=== PATIENT | male | born 1955 | race Caucasian/White ===

== ENCOUNTER → 2024-01-27 17:33 | Outpatient (REF) | payer MEDICARE, SELFPAY | LOC: MRI 17:33 | PROVIDERS: ATTENDING PHYSICIAN Family Medicine | DX: M48.00 Spinal stenosis, site unspecified (principal); R29.898 Other symptoms and signs involving the musculoskeletal system | CPT/HCPCS: 72110; 72148 ==

== ENCOUNTER 2024-02-21 18:01 | Emergency (ER) | payer MEDICARE, SELFPAY ==
[2024-02-21 18:06] VITALS: BP 93/52
[2024-02-21 18:48] VITALS: BP 92/59
[2024-02-21 19:00] VITALS: BP 95/60
[2024-02-21 19:12] VITALS: BMI 33.0
[2024-02-21 19:45] LABS: % Basophils 0.3 % (0-2); % Eosinophils 2.4 % (0-6); % Immature Granulocytes 0.8 % (0-0.5); % Monocytes 8.9 % (1.7-9.3); % Neutrophils 71.6 % (42.2-75.2); Absolute Eosinophils 0.3 10^3/uL (0-0.7); Absolute Immature Granulocytes 0.1 10^3/uL (0-0.05); Absolute Lymphocytes 1.8 10^3/uL (1.2-3.4); Absolute Neutrophils 8.2 10^3/uL (1.4-6.5); Hematocrit 24.8 % (39.0-52.0); Hemoglobin 7.9 g/dL (13.0-18.0); Mean Corp Hgb Conc. 31.9 g/dL (33.0-37.0); Mean Corpuscular Hgb 25.5 pg (27.0-31.0); Mean Platelet Volume 9.4 fL (7.4-10.4); Nucleated Red Blood Cells % 0 % (-); Platelet Count 407 10^3/uL (130-400); Red Cell Dist. Width 17.3 % (11.5-14.5); White Blood Cell Count 11.5 10^3/uL (4.8-10.8)
[2024-02-21 19:58] LABS: COVID-19 Antigen Negative (Negative)
[2024-02-21 20:04] LABS: ALT (SGPT) 25 U/L (0-50); AST (SGOT) 29 U/L (17-59); Albumin 3.3 g/dl (3.5-5.0); Alkaline Phosphatase 89 U/L (38-126); Blood Urea Nitrogen 24 mg/dl (9-20); Calcium 9.5 mg/dl (8.4-10.2); Carbon Dioxide 20 mmol/L (22-30); Chloride 105 mmol/L (98-107); Estimated Creatinine Clearance 76 ml/min; Glucose 110 mg/dl (70-99); Magnesium 2.1 mg/dl (1.6-2.3); Phosphorus 3.2 mg/dl (2.5-4.5); Potassium 4.5 mmol/L (3.5-5.1); Sodium 134 mmol/L (135-145); Total Bilirubin 0.4 mg/dl (0.2-1.3); Total Protein 6.1 g/dl (6.3-8.2); eGFR > 60.00
[2024-02-21 20:08] LABS: Troponin I < 0.012 ng/ml
[2024-02-21 20:25] LABS: NT-proBNP 1100 pg/ml
--- NOTE | 2024-02-21 20:40 | ED.GENMED ---
History of Present Illness
General
Chief Complaint: Weakness
Source: patient and spouse
Exam Limitations: none
Time Seen by Provider: 02/21/24 18:56
Nursing documentation reviewed up to this point in time: agreed with
History of Present Illness
History of Present Illness:
68-year-old male with a past medical history of hypertension, atrial fibrillation on Eliquis, DANIEL, asthma who presents to the emergency department with his for evaluation of generalized weakness. Patient reports symptoms have been ongoing for
roughly a week but have become much more severe over the past 24 hours. Initially was seen by his primary care physician and had basic blood work done which showed new anemia. He was scheduled for an iron infusion which he had about 5 days ago
with another upcoming. He says he has been scheduled for an upper and lower endoscopy as well to rule out any occult GI bleeding. He says that his Eliquis was discontinued. He has not had any dark or bloody stools he says. Over the past 24 hours
he feels his weakness has been getting worse�yesterday his says that he was too weak to walk up a step and fell down to his knee although did not sustain any serious injuries. No head trauma. Today could barely get out of bed and ultimately
brought to the emergency room to be assessed. He denies any chest pain. He denies any palpitations. He says he does have some mild shortness of breath. He says he has had some mild right sided abdominal pain today. Denies any nausea, vomiting,
diarrhea. Denies any urinary symptoms. Denies any other complaints.
Past History
Past History
ED Past Medical History: Asthma and HTN
ED Past Surgical History: Tonsilectomy
Social History
Tobacco: Non-smoker
Alcohol: Occasional
Personal:
Living: with family
Employment: Employed
Family History
Family History: CAD (Dad at age 59 of an AL)
Review of Systems
Review of Systems
All Other Systems: ROS reviewed and negative except as documented in HPI and ROS
Constitutional: Reports fatigue; Denies fever or chills
EENT: Denies sore throat or runny nose
Respiratory: Reports trouble breathing; Denies cough
Cardiac: Denies chest pain, palpitations or syncope
ABD/GI: Reports abdominal pain; Denies nausea, vomiting, diarrhea, bloody stools or black stools
: Denies dysuria, frequency or flank pain
Musculoskeletal: Denies neck pain or back pain
Neurological: Denies dizzy or headache
Phy Exam
Physical Exam
Physical Exam:
General: Awake, alert, oriented x3; no acute distress
Head: Normocephalic, atraumatic
Eyes: Conjunctiva normal, pupils equal round and reactive to light bilaterally
Throat: Airway intact, handling secretions
Neck: Trachea midline, supple without meningismus
Lungs: Clear to auscultation bilaterally, no wheezing, rales, rhonchi
Heart: Regular rate and rhythm, no murmurs, gallops, or rubs
Abd: Soft, non distended, tender to palpation right lateral abdomen at the level of the umbilicus
Neuro: Cranial nerves grossly intact, speech fluid, no focal motor or sensory deficit
Skin: no rash
Extremities: Trace edema around the ankles bilaterally, equal pulses in all extremities
Scores
Heart Failure Risk
Heart Failure Risk Score: Not Applicable
Heart Score for Chest Pain Patients
STEMI patient?: Not applicable
Withdrawal Assessment of Alcohol
Withdrawal Assessment Completed?: Not applicable
Course
Orders/Labs/Results
Orders:
Orders
02/21/24 18:57
Urinalysis Reflex To Culture Urgent
02/21/24 19:07
Electrocardiogram (*1) Urgent
Reason for Study: Fatigue / Weakness
EKG- Treatment ONCE
02/21/24 19:08
CT Abd/pelvis W Iv Cont Urgent
Comment:
Reason For Exam: right sided abd pain, fatigue
CR Chest - 2 Views Urgent
Comment:
Reason For Exam: weakness, right sided abd/flank pain
02/21/24 19:30
COVID-19 Antigen Urgent
Source: Nasal Swab
Complete Blood Count/With Diff Urgent
Comprehensive Metabolic Panel Urgent
Magnesium Urgent
NT-proBNP Urgent
Phos [Phosphorus] Urgent
Troponin I Urgent
Abnormal Lab Results
02/21/24
19:30
WBC 11.5 H 10^3/uL
(4.8-10.8)
RBC 3.10 L 10^6/uL
(4.70-6.10)
Hgb 7.9 L g/dL
(13.0-18.0)
Hct 24.8 L %
(39.0-52.0)
MCH 25.5 L pg
(27.0-31.0)
MCHC 31.9 L g/dL
(33.0-37.0)
RDW 17.3 H %
(11.5-14.5)
Plt Count 407 H 10^3/uL
(130-400)
Abs Immat Gran (auto) 0.1 H 10^3/uL
(0-0.05)
Absolute Neuts (auto) 8.2 H 10^3/uL
(1.4-6.5)
Absolute Monos (auto) 1.0 H 10^3/uL
(0.1-0.6)
Immature Gran % 0.8 H %
(0-0.5)
Lymphocytes % 16.0 L %
(20.5-51.1)
Sodium 134 L mmol/L
(135-145)
Carbon Dioxide 20 L mmol/L
(22-30)
BUN 24 H mg/dl
(9-20)
Glucose 110 H mg/dl
(70-99)
Total Protein 6.1 L g/dl
(6.3-8.2)
Albumin 3.3 L g/dl
(3.5-5.0)
02/21/24 19:30
02/21/24 19:30
Vital Signs
Initial and Last Documented VS:
Initial Vital Signs
Temp Pulse Resp BP Pulse Ox
36.8 C 72 18 93/52 95
02/21/24 18:06 02/21/24 18:06 02/21/24 18:06 02/21/24 18:06 02/21/24 18:06
Last Documented Vital Signs
Temp Pulse Resp BP Pulse Ox
36.8 C 69 22 95/60 96
02/21/24 18:06 02/21/24 20:15 02/21/24 20:15 02/21/24 19:00 02/21/24 20:15
MDM/Problems Addressed
Differential Diagnosis Includes:
Differential diagnosis for generalized weakness is wide includes but not limited to: Symptomatic anemia, dehydration, electrolyte derangement, CHF, infection such as UTI or pneumonia, polypharmacy, viral syndrome, deconditioning, malignancy
MDM/Problems Addressed:
68-year-old male presents to the emergency room for evaluation of generalized weakness as described above�worsening over the past week, found to have anemia as an outpatient and has had iron infusion and is scheduled for upper and lower endoscopy.
Only other complaints are some mild shortness of breath as well as some right sided abdominal pain. Had been on Eliquis which was discontinued. Soft blood pressure here 90s over 50s which is apparently chronic issue for him. Physical exam as
above. Plan to check labs including a CBC and a CMP; will check troponin and a BNP. Will check urinalysis. Swab for COVID. Will check chest x-ray. Will check EKG. Sent for CT abdomen pelvis. Monitor closely reassess after the above.
Chronic conditions affecting care:
Atrial fibrillation, hypertension
*Radiology
Radiology exam reviewed: preliminary read by ED provider and radiology read reviewed
*Pulse Oximetry
Patient hypoxic: no
*Critical Care Note
Total Time (30-74mins, 75-104mins- exclusive of procedures): Not Applicable
Data Reviewed
Review of Other/Old Records Reveals: Labs and Records
Source: patient, records and spouse
ED Attending Note
-
Portions of this chart may have been created with voice recognition software.� Occasional wrong word or��sound alike� substitutions may have occurred due to the inherent limitations of voice recognition software.
Discharge Plan
Departure
Prescriptions:
No Action
Entresto 1 TAB tablet
1 tab PO BID Qty: 30 0RF
metoprolol succinate 50 MG tablet extended release 24 hr
50 mg PO DAILY
budesonide-formoterol [Symbicort] 1 PUFF HFA aerosol inhaler
2 puff inhalation DAILY
furosemide 40 MG tablet
40 mg PO DAILY
potassium chloride [Klor-Con M20] 20 MEQ tablet,ER particles/crystals
10 meq PO DAILY
tamsulosin 0.4 mg Capsule
0.4 mg PO HS
finasteride 5 mg Tablet
5 mg
Referrals:
Derrick Atkins MD [Family Provider] -
Interventions
Interventions:
*General Assessment Last Done: 02/21/24 18:06
*ED COVID-19 Vaccine History Last Done: 02/21/24 18:06
ED- Cardiac Assessment Last Done: 02/21/24 19:13
ED- Neurological Assessment Last Done: 02/21/24 19:13
ED- Pulmonary Assessment Last Done: 02/21/24 19:13
Discharge Date and Time
Print Language: SWEDISH
[2024-02-21 21:13] VITALS: BP 103/63
[2024-02-21 22:00] VITALS: BP 104/68
== END 2024-02-21 22:27 | disposition home or self-care (01) ==
LOC: EMR 18:01
PROVIDERS: EMERGENCY PHYSICIAN Emergency Medicine; FAMILY PHYSICIAN Family Medicine
DX: R53.1 Weakness (principal); R06.02 Shortness of breath; R10.9 Unspecified abdominal pain; R53.83 Other fatigue; W19.XXXA Unspecified fall, initial encounter; D64.9 Anemia, unspecified; Z11.52 Encounter for screening for COVID-19; I48.91 Unspecified atrial fibrillation; J45.909 Unspecified asthma, uncomplicated; I10 Essential (primary) hypertension; G47.33 Obstructive sleep apnea (adult) (pediatric); Z79.01 Long term (current) use of anticoagulants; Z88.2 Allergy status to sulfonamides
CPT/HCPCS: 99285; 71046; 74177; 80053; 83735; 83880; 84100; 84484; 85025; 87811; 93005; Q9967

== ENCOUNTER 2024-02-23 12:42 | Outpatient (RCR) | payer MEDICARE, SELFPAY ==
[2024-02-16 13:12] VITALS: BP 84/50
[2024-02-16] MEDS: INJECTAFER 265 MG IV (13:26)
[2024-02-16 14:09] VITALS: BP 86/51
[2024-02-23 13:10] VITALS: BP 106/52
[2024-02-23] MEDS: INJECTAFER 265 MG IV (13:17)
[2024-02-23 14:07] VITALS: BP 106/52
[2024-02-23 14:09] VITALS: BP 96/52
== END 2024-02-24 08:50 | disposition home or self-care (01) ==
LOC: OID 12:42
PROVIDERS: ATTENDING PHYSICIAN Family Medicine
DX: D50.9 Iron deficiency anemia, unspecified (principal)
CPT/HCPCS: 96365; 96374; J1439

== ENCOUNTER 2024-03-04 08:58 | Outpatient (REF) | payer MEDICARE, SELFPAY ==
[2024-03-04] VITALS (9 sets, daily range): BP systolic 60–119; BP diastolic 53–76
[2024-03-04 09:26] LABS: % Basophils 0.3 % (0-2); % Eosinophils 1.3 % (0-6); % Immature Granulocytes 1.4 % (0-0.5); % Lymphocytes 9.6 % (20.5-51.1); % Monocytes 7.6 % (1.7-9.3); % Neutrophils 79.8 % (42.2-75.2); Absolute Eosinophils 0.2 10^3/uL (0-0.7); Absolute Immature Granulocytes 0.2 10^3/uL (0-0.05); Absolute Lymphocytes 1.2 10^3/uL (1.2-3.4); Hematocrit 27.9 % (39.0-52.0); Hemoglobin 8.7 g/dL (13.0-18.0); Mean Corp Hgb Conc. 31.2 g/dL (33.0-37.0); Mean Corpuscular Hgb 25.5 pg (27.0-31.0); Mean Corpuscular Volume 81.8 fL (80.0-94.0); Mean Platelet Volume 9.8 fL (7.4-10.4); Nucleated Red Blood Cells % 0 % (-); Platelet Count 432 10^3/uL (130-400); Red Blood Cell Count 3.41 10^6/uL (4.70-6.10); Red Cell Dist. Width 18.2 % (11.5-14.5); White Blood Cell Count 12.6 10^3/uL (4.8-10.8)
[2024-03-04 09:35] LABS: PT 16.2 Sec (11.4-14.6)
[2024-03-04 09:46] LABS: Blood Urea Nitrogen 22 mg/dl (9-20); Calcium 9.6 mg/dl (8.4-10.2); Carbon Dioxide 23 mmol/L (22-30); Chloride 103 mmol/L (98-107); Glucose 135 mg/dl (70-99); Potassium 4.6 mmol/L (3.5-5.1); Sodium 138 mmol/L (135-145); eGFR 54.07
== END 2024-03-04 14:08 | disposition home or self-care (01) ==
LOC: RADI 08:58
PROVIDERS: ATTENDING PHYSICIAN Family Medicine
DX: C64.1 Malignant neoplasm of right kidney, except renal pelvis (principal); D68.8 Other specified coagulation defects
CPT/HCPCS: 88305; 36415; 50200; 77012; 80048; 85025; 85610; 88333; 88341; 88342; 99152; 99153

== ENCOUNTER → 2024-03-09 13:22 | Outpatient (REF) | payer MEDICARE, SELFPAY | LOC: MRI 3T 13:22 | PROVIDERS: ATTENDING PHYSICIAN Internal Medicine Hematology & Oncology; FAMILY PHYSICIAN Family Medicine | DX: C64.1 Malignant neoplasm of right kidney, except renal pelvis (principal); D64.9 Anemia, unspecified | CPT/HCPCS: 70553; A9575 ==

== ENCOUNTER 2024-03-17 08:23 | Inpatient (IN) | payer MEDICARE, SELFPAY ==
[2024-03-16] VITALS (8 sets, daily range): BP systolic 104–136; BP diastolic 61–100; BMI 34.2; BMI 33.3
[2024-03-16 14:10] LABS: % Basophils 0.4 % (0-2); % Eosinophils 2.1 % (0-6); % Monocytes 10.6 % (1.7-9.3); % Neutrophils 69.9 % (42.2-75.2); Absolute Basophils 0.1 10^3/uL (0-0.2); Absolute Eosinophils 0.2 10^3/uL (0-0.7); Absolute Immature Granulocytes 0.1 10^3/uL (0-0.05); Absolute Lymphocytes 1.8 10^3/uL (1.2-3.4); Absolute Monocytes 1.2 10^3/uL (0.1-0.6); Absolute Neutrophils 7.8 10^3/uL (1.4-6.5); Hematocrit 30.9 % (39.0-52.0); Hemoglobin 9.7 g/dL (13.0-18.0); Mean Corp Hgb Conc. 31.4 g/dL (33.0-37.0); Mean Corpuscular Hgb 25.9 pg (27.0-31.0); Mean Corpuscular Volume 82.6 fL (80.0-94.0); Mean Platelet Volume 9.7 fL (7.4-10.4); Nucleated Red Blood Cells % 0 % (-); Platelet Count 378 10^3/uL (130-400); Red Blood Cell Count 3.74 10^6/uL (4.70-6.10); Red Cell Dist. Width 17.8 % (11.5-14.5); White Blood Cell Count 11.2 10^3/uL (4.8-10.8)
--- NOTE | 2024-03-16 14:36 | ED.GENMED ---
History of Present Illness
<Marvin Meza Kimmie, DO - Last Filed: 03/16/24 16:43>
General
Chief Complaint: Back Pain
Time Seen by Provider: 03/16/24 14:36
History of Present Illness
History of Present Illness:
HPI: Mr. Harley Santoro is a 68 yo male brought by EMS for back pain. Pain is a 9/10 shooting pain that started 0900, but is now 0/10. Worse with movement. Was unable to stand earlier. Pt has L knee instability for 3-4 weeks and fell 3 weeks ago prior
to being seen in this ED on 02/20. Pt has been wearing knee brace and using a walker for stability. Pt diagnosed with kidney mass, confirmed by renal bx 03/04. PET scan yesterday, will see oncology tomorrow to discuss results. Pt aware cancer is
metastatic. +nonproductive cough, -headache, -fever/chills, -chest pain, -palpitations, -n/v/d. Urine today is a dark brown color, pt reports increased urgency. Denies dysuria, increased frequency.
EXAM:
GENERAL: Well appearing in no distress
HEENT: Moist oral mucosa,
CARDIOVASCULAR: No murmurs, normal heart rate, regular rhythm, No chest wall tenderness
PULMONARY: No respiratory distress, breath sounds are clear and equal
ABDOMEN: Focal tenderness over L paraspinal region at T12. Soft with no peritoneal signs, no tenderness
NEUROLOGIC: Excellent strength all extremities, no coordination deficits
PSYCHIATRIC: Appropriate mental status, normal insight and judgement
EXTREMITIES: Nontender, no edema. Wearing left knee brace
SKIN: No rash, no lesions
TIME OF INITIAL ENCOUNTER: 2:45 PM
NUMBER AND COMPLEXITY OF PROBLEMS ADDRESSED AT THE ENCOUNTER
� Chronic conditions affecting care: R kidney cancer, HTN, atrial fibrillation, asthma
� Acute Exacerbation and/or Progression of Chronic Illness: R kidney cancer
� Differential Diagnosis includes: Malignancy with mets to the bone
AMOUNT AND/OR COMPLEXITY OF DATA TO BE REVIEWED AND ANALYZED
� I performed an independent evaluation of and my interpretation is:
EKG:
CT:
X-rays:
Laboratory Studies: White count 11.2, hemoglobin 9.7, urinalysis shows 4+ blood, trace leukocyte esterase
Other:
� Review of other/old records: I reviewed the PET/CT from 03/15/2024 that showed the known malignancy at the right kidney and there was also uptake bilateral lung nodules, subcarinal mediastinum, adrenals, activity also noted the
upper cervical spine on the left, left scapular region, right anterior chest wall, right ninth rib, left seventh rib, proximal left femur
� Clinical information was obtained by an independent historian: I spoke to at bedside
� Prescriptions/Medications Considered but not given:
� Further testing considered but not performed:
RISK OF COMPLICATIONS AND/OR MORBIDITY OR MORTALITY OF PATIENT MANAGEMENT
� Social determinants of health affecting care: Lives at home with , was planning on going on a cruise with his as tomorrow was the 47th anniversary
� Discussion with other providers: Hospitalist for admission Dr. Barrett
� Escalation of care including admission/observation vs risk of discharge considered: I reviewed yesterday's PET/CT which includes metastatic disease to the bone. I have started him on narcotic analgesia. Also shows blood.
<Catrachita Blue DO, Resident - Last Filed: 03/19/24 06:25>
General
Source: patient
Exam Limitations: none
Nursing documentation reviewed up to this point in time: agreed with
History of Present Illness
History of Present Illness:
HPI: Mr. Harley Santoro is a 68 yo male brought by EMS for back pain. Pain is a 9/10 shooting pain that started 0900, but is now 0/10. Worse with movement. Was unable to stand earlier. Pt has L knee instability for 3-4 weeks and fell 3 weeks ago prior
to being seen in this ED on 02/20. Pt has been wearing knee brace and using a walker for stability. Pt diagnosed with kidney mass, confirmed by renal bx 03/04. PET scan yesterday, will see oncology tomorrow to discuss results. Pt aware cancer is
metastatic. +nonproductive cough, -headache, -fever/chills, -chest pain, -palpitations, -n/v/d. Urine today is a dark brown color, pt reports increased urgency. Denies dysuria, increased frequency.
EXAM:
GENERAL: Well appearing in no distress
HEENT: Moist oral mucosa
CARDIOVASCULAR: No murmurs, normal heart rate, regular rhythm, No chest wall tenderness
PULMONARY: No respiratory distress, breath sounds are clear and equal
ABDOMEN: Focal tenderness over L paraspinal region at T12. Soft with no peritoneal signs, no tenderness
NEUROLOGIC: Excellent strength all extremities, no coordination deficits
PSYCHIATRIC: Appropriate mental status, normal insight and judgement
EXTREMITIES: Nontender, no edema. Wearing left knee brace
SKIN: No rash, no lesions
TIME OF INITIAL ENCOUNTER:
NUMBER AND COMPLEXITY OF PROBLEMS ADDRESSED AT THE ENCOUNTER
� Chronic conditions affecting care: R kidney cancer, HTN, atrial fibrillation, asthma
� Acute Exacerbation and/or Progression of Chronic Illness: R kidney cancer
� Differential Diagnosis includes:
AMOUNT AND/OR COMPLEXITY OF DATA TO BE REVIEWED AND ANALYZED
� I performed an independent evaluation of and my interpretation is:
EKG:
CT:
X-rays:
Laboratory Studies: White count 11.2, hemoglobin 9.7
Other:
� Review of other/old records: I reviewed the PET/CT from 03/15/2024 that showed the known malignancy at the right kidney and there was also uptake bilateral lung nodules, subcarinal mediastinum, adrenals, activity also noted the
upper cervical spine on the left, left scapular region, right anterior chest wall, right ninth rib, left seventh rib, proximal left femur
� Clinical information was obtained by an independent historian:
� Prescriptions/Medications Considered but not given:
� Further testing considered but not performed:
RISK OF COMPLICATIONS AND/OR MORBIDITY OR MORTALITY OF PATIENT MANAGEMENT
� Social determinants of health affecting care:
� Discussion with other providers:
� Escalation of care including admission/observation vs risk of discharge considered:
Past History
<Marvin Burks DO - Last Filed: 03/16/24 16:43>
Past History
ED Past Medical History: Asthma and HTN
ED Past Surgical History: Tonsilectomy
Social History
Tobacco: Non-smoker
Alcohol: Occasional
Personal:
Living: with family
Employment: Employed
Family History
Family History: CAD (Dad at age 59 of an ID)
Phy Exam
<Catrachita Blue DO, Resident - Last Filed: 03/19/24 06:25>
Physical Exam
Physical Exam:
.
Course
<Marvin Burks DO - Last Filed: 03/16/24 16:43>
Orders/Labs/Results
Orders:
Orders
03/16/24 13:57
CBC/With Diff [Complete Blood Count/With Diff] Urgent
03/16/24 14:41
Comprehensive Metabolic Panel Urgent
03/16/24 Dinner
IDDSI 6 - Soft & Bite Sized
At Your Request: Limited Participation
Does patient need a safe tray?: No
03/16/24 15:04
Oxycodone/Acetaminophen [Percocet 5/325] 1 tablet PO NOW STA
03/16/24 15:12
Urinalysis Reflex To Culture Urgent
Date Specimen was Collected: 03/16/24
Time Specimen was Collected: 15:07
Urine Microscopic Reflex Cult Urgent
03/16/24 16:37
Tranexamic Acid 1,000 mg .ROUTE .STK-MED ONE
03/16/24 16:39
Tranexamic Acid 250 mg INH NOW STA
Tranexamic Acid 250 mg INH R ONCE ONE
03/16/24 16:42
HYDROmorphone [Dilaudid] 1 mg IV NOW STA
Ondansetron Injectable [Zofran] 4 mg IV NOW STA
03/16/24 17:41
Admit/Transfer Patient As Directed
Co-Sign Provider:
Level of Care: Observation services
Assign to:: Medical/Surgical
Physician / Group: osmani barrett
Diagnosis: intract thoracic back oain, l jaw pain new renal ca withnew METs
Code Status As Directed
Resuscitation Status: Full Code
HEMATOLOGY CONSULT Routine
Consulting Provider: Diego Zimmerman
Was physician already notified: Yes
Reason for consult: renal ca with mets ,new t7 back pain , l mandble cervical
03/16/24 17:45
PRN Pain Medication Management As Directed
May give lesser potent ordered pain med per pt: Yes
preference::
Protocol:: Medication orders for pain may be administered in a
manner that supports deferring to patient preference
when the pt is:
- Requesting an ordered lesser potent pain medication.
Least to most potent pain medications are defined
as: acetaminophen < NSAID < tramadol < opioids
(morphine, oxycodone, hydromorphone).
- Requesting a lesser dose of the same medication IF
ORDERED.
- Requesting a less intrusive route of administration
if both routes are prescribed by the provider (PO <
IV).
03/16/24 17:47
Facial Bones w Contrast CT [CT Facial Bones W/ Iv Contrast] Urgent
Comment:
Reason For Exam: bilat jaw pain, lesion left jaw concern mets
03/16/24 18:[address] Non Medication Order As Directed
Physician Order: apply tubi optician manager bilat legs
Above order entered?: Yes
03/16/24 19:16
Acetaminophen [Tylenol] 650 mg PO Q4HPRN PRN
Bisacodyl [Dulcolax] 10 mg RECTAL [id number] PRN
Docusate W/Senna [Senokot-S] 1 tablet PO BIDPRN PRN
HYDROmorphone [Dilaudid] 1 mg IV Q4HPRN PRN
Metoprolol Xl [Toprol Xl] 50 mg PO QPM
Ondansetron Injectable [Zofran] 4 mg IV Q6HPRN PRN
Oxycodone [Roxicodone] 5 mg PO Q4HPRN PRN
Polyethylene Glycol Powder [Miralax] 17 grams PO DAILYPRN PRN
03/16/24 19:16
VTE Contraindication Routine
VTE Mechanical Device Contraindication: Medical Contraindication
Pharmocologic Contraindication: Medical Contraindication
Comment: pt on eliquis
Activity As Directed
Activity Level: With Assistance
Intake/ Output As Directed
Frequency: Per unit guidelines
Vital Signs As Directed
Frequency: Per unit guidelines
Weight As Directed
Frequency: Daily
Ot Eval And Treat Routine
Pt Eval And Treat Routine
Activity Level: With Assistance
03/16/24 20:00
Apixaban [Eliquis] 5 mg PO BID
Budesonide/Formoterol 80/4.5 [Symbicort 80/4.5 Mcg Inhaler] 2 puff INH R BID
Sacubitril 24/Valsartan 26 [Entresto 24 mg/26 mg] 1 tab PO BID
03/16/24 22:00
Tamsulosin [Flomax] 0.4 mg PO HS
Cpap [RESP] Routine
Patient to use own unit?: Yes
Instructions: to bring tmr
03/17/24 06:00
MR Cervical Spine Without & W Routine
Reason For Exam: c3 lesion rneal cell ca
OK for patient to be off Cardiac Monitoring for MRI: Yes
Recent pill cam endoscopy?: No
Pacemaker/Defibrillator?: No
03/17/24 07:16
Miscellaneous Order As Directed
Miscellaneous order: apply tubi optician manager donna legs
03/17/24 08:00
Complete Blood Count/With Diff IN AM
Comprehensive Metabolic Panel IN AM
Potassium Chloride [KCl] 10 meq PO DAILY
Tiotropium [place] 2.5 Mcg [Spiriva Respimat 2.5 Mcg] 2 puff INH R DAILY
03/18/24 06:00
MR Thoracic Spine W/o & With Routine
Reason For Exam: t7 paraspinal pain , renal ca with mets new
OK for patient to be off Cardiac Monitoring for MRI: Yes
Recent pill cam endoscopy?: No
Pacemaker/Defibrillator?: No
03/18/24 08:00
Furosemide [Lasix] 40 mg PO Q48H
Abnormal Lab Results
03/16/24 03/16/24 03/16/24
13:57 14:41 15:12
WBC 11.2 H 10^3/uL
(4.8-10.8)
RBC 3.74 L 10^6/uL
(4.70-6.10)
Hgb 9.7 L g/dL
(13.0-18.0)
Hct 30.9 L %
(39.0-52.0)
MCH 25.9 L pg
(27.0-31.0)
MCHC 31.4 L g/dL
(33.0-37.0)
RDW 17.8 H %
(11.5-14.5)
Plt Count
Abs Immat Gran (auto) 0.1 H 10^3/uL
(0-0.05)
Absolute Neuts (auto) 7.8 H 10^3/uL
(1.4-6.5)
Absolute Monos (auto) 1.2 H 10^3/uL
(0.1-0.6)
Immature Gran % 1.0 H %
(0-0.5)
Lymphocytes % 16.0 L %
(20.5-51.1)
Monocytes % 10.6 H %
(1.7-9.3)
BUN 26 H mg/dl
(9-20)
Glucose 105 H mg/dl
(70-99)
Ur Occult Blood Reflex 4+ A
(Negative)
Leukocyte Esterase Rfl Trace A
(Negative)
Urine RBC 90-100 A /HPF
(0-2)
Urine Bacteria (Reflex) Few A
(Negative)
Urine Albumin (Reflex) 1+ A
(Neg - Trace)
03/17/24
08:00
WBC
RBC 3.62 L 10^6/uL
(4.70-6.10)
Hgb 9.4 L g/dL
(13.0-18.0)
Hct 30.9 L %
(39.0-52.0)
MCH 26.0 L pg
(27.0-31.0)
MCHC 30.4 L g/dL
(33.0-37.0)
RDW 17.6 H %
(11.5-14.5)
Plt Count 413 H 10^3/uL
(130-400)
Abs Immat Gran (auto) 0.1 H 10^3/uL
(0-0.05)
Absolute Neuts (auto) 7.6 H 10^3/uL
(1.4-6.5)
Absolute Monos (auto) 1.0 H 10^3/uL
(0.1-0.6)
Immature Gran % 1.0 H %
(0-0.5)
Lymphocytes % 14.2 L %
(20.5-51.1)
Monocytes % 9.8 H %
(1.7-9.3)
BUN
Glucose 116 H mg/dl
(70-99)
Ur Occult Blood Reflex
Leukocyte Esterase Rfl
Urine RBC
Urine Bacteria (Reflex)
Urine Albumin (Reflex)
03/17/24 08:00
03/17/24 08:00
Vital Signs
Initial and Last Documented VS:
Initial Vital Signs
Temp Pulse Resp BP Pulse Ox
97.8 F 75 18 136/100 96
03/16/24 13:45 03/16/24 13:45 03/16/24 13:45 03/16/24 13:45 03/16/24 13:45
Last Documented Vital Signs
Temp Pulse Resp BP Pulse Ox
97.8 F 118 16 113/70 92
03/18/24 23:30 03/18/24 23:30 03/18/24 23:30 03/18/24 23:30 03/18/24 23:30
<Catrachita Blue DO, Resident - Last Filed: 03/19/24 06:25>
Orders/Labs/Results
Orders:
Orders
03/16/24 13:57
CBC/With Diff [Complete Blood Count/With Diff] Urgent
03/16/24 14:41
Comprehensive Metabolic Panel Urgent
03/16/24 Dinner
IDDSI 6 - Soft & Bite Sized
At Your Request: Limited Participation
Does patient need a safe tray?: No
03/16/24 15:04
Oxycodone/Acetaminophen [Percocet 5/325] 1 tablet PO NOW STA
03/16/24 15:12
Urinalysis Reflex To Culture Urgent
Date Specimen was Collected: 03/16/24
Time Specimen was Collected: 15:07
Urine Microscopic Reflex Cult Urgent
03/16/24 16:37
Tranexamic Acid 1,000 mg .ROUTE .STK-MED ONE
03/16/24 16:39
Tranexamic Acid 250 mg INH NOW STA
Tranexamic Acid 250 mg INH R ONCE ONE
03/16/24 16:42
HYDROmorphone [Dilaudid] 1 mg IV NOW STA
Ondansetron Injectable [Zofran] 4 mg IV NOW STA
03/16/24 17:41
Admit/Transfer Patient As Directed
Co-Sign Provider:
Level of Care: Observation services
Assign to:: Medical/Surgical
Physician / Group: osmani barrett
Diagnosis: intract thoracic back oain, l jaw pain new renal ca withnew METs
Code Status As Directed
Resuscitation Status: Full Code
HEMATOLOGY CONSULT Routine
Consulting Provider: Diego Zimmerman
Was physician already notified: Yes
Reason for consult: renal ca with mets ,new t7 back pain , l mandble cervical
03/16/24 17:45
PRN Pain Medication Management As Directed
May give lesser potent ordered pain med per pt: Yes
preference::
Protocol:: Medication orders for pain may be administered in a
manner that supports deferring to patient preference
when the pt is:
- Requesting an ordered lesser potent pain medication.
Least to most potent pain medications are defined
as: acetaminophen < NSAID < tramadol < opioids
(morphine, oxycodone, hydromorphone).
- Requesting a lesser dose of the same medication IF
ORDERED.
- Requesting a less intrusive route of administration
if both routes are prescribed by the provider (PO <
IV).
03/16/24 17:47
Facial Bones w Contrast CT [CT Facial Bones W/ Iv Contrast] Urgent
Comment:
Reason For Exam: bilat jaw pain, lesion left jaw concern mets
03/16/24 18:[address] Non Medication Order As Directed
Physician Order: apply tubi optician manager bilat legs
Above order entered?: Yes
03/16/24 19:16
Acetaminophen [Tylenol] 650 mg PO Q4HPRN PRN
Bisacodyl [Dulcolax] 10 mg RECTAL [id number] PRN
Docusate W/Senna [Senokot-S] 1 tablet PO BIDPRN PRN
HYDROmorphone [Dilaudid] 1 mg IV Q4HPRN PRN
Metoprolol Xl [Toprol Xl] 50 mg PO QPM
Ondansetron Injectable [Zofran] 4 mg IV Q6HPRN PRN
Oxycodone [Roxicodone] 5 mg PO Q4HPRN PRN
Polyethylene Glycol Powder [Miralax] 17 grams PO DAILYPRN PRN
03/16/24 19:16
VTE Contraindication Routine
VTE Mechanical Device Contraindication: Medical Contraindication
Pharmocologic Contraindication: Medical Contraindication
Comment: pt on eliquis
Activity As Directed
Activity Level: With Assistance
Intake/ Output As Directed
Frequency: Per unit guidelines
Vital Signs As Directed
Frequency: Per unit guidelines
Weight As Directed
Frequency: Daily
Ot Eval And Treat Routine
Pt Eval And Treat Routine
Activity Level: With Assistance
03/16/24 20:00
Apixaban [Eliquis] 5 mg PO BID
Budesonide/Formoterol 80/4.5 [Symbicort 80/4.5 Mcg Inhaler] 2 puff INH R BID
Sacubitril 24/Valsartan 26 [Entresto 24 mg/26 mg] 1 tab PO BID
03/16/24 22:00
Tamsulosin [Flomax] 0.4 mg PO HS
Cpap [RESP] Routine
Patient to use own unit?: Yes
Instructions: to bring tmr
03/17/24 06:00
MR Cervical Spine Without & W Routine
Reason For Exam: c3 lesion rneal cell ca
OK for patient to be off Cardiac Monitoring for MRI: Yes
Recent pill cam endoscopy?: No
Pacemaker/Defibrillator?: No
03/17/24 07:16
Miscellaneous Order As Directed
Miscellaneous order: apply tubi optician manager donna legs
03/17/24 08:00
Complete Blood Count/With Diff IN AM
Comprehensive Metabolic Panel IN AM
Potassium Chloride [KCl] 10 meq PO DAILY
Tiotropium [place] 2.5 Mcg [Spiriva Respimat 2.5 Mcg] 2 puff INH R DAILY
03/18/24 06:00
MR Thoracic Spine W/o & With Routine
Reason For Exam: t7 paraspinal pain , renal ca with mets new
OK for patient to be off Cardiac Monitoring for MRI: Yes
Recent pill cam endoscopy?: No
Pacemaker/Defibrillator?: No
03/18/24 08:00
Furosemide [Lasix] 40 mg PO Q48H
Abnormal Lab Results
03/16/24 03/16/24 03/16/24
13:57 14:41 15:12
WBC 11.2 H 10^3/uL
(4.8-10.8)
RBC 3.74 L 10^6/uL
(4.70-6.10)
Hgb 9.7 L g/dL
(13.0-18.0)
Hct 30.9 L %
(39.0-52.0)
MCH 25.9 L pg
(27.0-31.0)
MCHC 31.4 L g/dL
(33.0-37.0)
RDW 17.8 H %
(11.5-14.5)
Plt Count
Abs Immat Gran (auto) 0.1 H 10^3/uL
(0-0.05)
Absolute Neuts (auto) 7.8 H 10^3/uL
(1.4-6.5)
Absolute Monos (auto) 1.2 H 10^3/uL
(0.1-0.6)
Immature Gran % 1.0 H %
(0-0.5)
Lymphocytes % 16.0 L %
(20.5-51.1)
Monocytes % 10.6 H %
(1.7-9.3)
BUN 26 H mg/dl
(9-20)
Glucose 105 H mg/dl
(70-99)
Ur Occult Blood Reflex 4+ A
(Negative)
Leukocyte Esterase Rfl Trace A
(Negative)
Urine RBC 90-100 A /HPF
(0-2)
Urine Bacteria (Reflex) Few A
(Negative)
Urine Albumin (Reflex) 1+ A
(Neg - Trace)
03/17/24
08:00
WBC
RBC 3.62 L 10^6/uL
(4.70-6.10)
Hgb 9.4 L g/dL
(13.0-18.0)
Hct 30.9 L %
(39.0-52.0)
MCH 26.0 L pg
(27.0-31.0)
MCHC 30.4 L g/dL
(33.0-37.0)
RDW 17.6 H %
(11.5-14.5)
Plt Count 413 H 10^3/uL
(130-400)
Abs Immat Gran (auto) 0.1 H 10^3/uL
(0-0.05)
Absolute Neuts (auto) 7.6 H 10^3/uL
(1.4-6.5)
Absolute Monos (auto) 1.0 H 10^3/uL
(0.1-0.6)
Immature Gran % 1.0 H %
(0-0.5)
Lymphocytes % 14.2 L %
(20.5-51.1)
Monocytes % 9.8 H %
(1.7-9.3)
BUN
Glucose 116 H mg/dl
(70-99)
Ur Occult Blood Reflex
Leukocyte Esterase Rfl
Urine RBC
Urine Bacteria (Reflex)
Urine Albumin (Reflex)
03/17/24 08:00
03/17/24 08:00
Vital Signs
Initial and Last Documented VS:
Initial Vital Signs
Temp Pulse Resp BP Pulse Ox
97.8 F 75 18 136/100 96
03/16/24 13:45 03/16/24 13:45 03/16/24 13:45 03/16/24 13:45 03/16/24 13:45
Last Documented Vital Signs
Temp Pulse Resp BP Pulse Ox
97.8 F 118 16 113/70 92
03/18/24 23:30 03/18/24 23:30 03/18/24 23:30 03/18/24 23:30 03/18/24 23:30
Procedures
<Marvin Burks, DO - Last Filed: 03/16/24 16:43>
Incision/Drainage/Joint Aspiration
Left:
Anethesia: 1% Lidocaine with Epi
Type of procedure: incise
Description of abscess: less than 3cm
Loculations broken up: No
How much fluid was obtained?: scant amount
Fluid description: bloody
Treatment: left open for drainage
Additional information:
I performed I&D of the soft tissue swelling at the angle of the mandible intraorally toward the buccal surface
<Catrachita Blue DO, Resident - Last Filed: 03/19/24 06:25>
*Critical Care Note
Total Time (30-74mins, 75-104mins- exclusive of procedures): Not Applicable
ED Attending Note
<Marvin Burks DO - Last Filed: 03/16/24 16:43>
-
Portions of this chart may have been created with voice recognition software.� Occasional wrong word or��sound alike� substitutions may have occurred due to the inherent limitations of voice recognition software.
Discharge Plan
Departure
Patient Disposition: Admit
Date of Disposition: 03/16/24
Time of Disposition: 16:24
Presentation/result/management discussed w/ accepting MD/DO: Hospitalist
Discharge Problem:
Metastatic cancer to bone
Interventions
Interventions:
*General Assessment Last Done: 03/16/24 13:45
*Neglect/Abuse Screening Last Done: 03/16/24 13:45
ED- Fall Risk Assessment Last Done: 03/16/24 14:11
*Nursing Disposition Last Done: 03/16/24 19:15
ED-Musculoskeletal Assessment Last Done: 03/16/24 14:11
Discharge Date and Time
Discharge Date/Time: 03/16/24 19:16
[2024-03-16] MEDS: PERCOCET 5/325 1 TABLET PO (15:11)
[2024-03-16 15:16] LABS: ALT (SGPT) 20 U/L (0-50); AST (SGOT) 25 U/L (17-59); Albumin 3.5 g/dl (3.5-5.0); Alkaline Phosphatase 104 U/L (38-126); Blood Urea Nitrogen 26 mg/dl (9-20); Calcium 9.7 mg/dl (8.4-10.2); Carbon Dioxide 22 mmol/L (22-30); Chloride 105 mmol/L (98-107); Estimated Creatinine Clearance 75 ml/min; Glucose 105 mg/dl (70-99); Potassium 4.6 mmol/L (3.5-5.1); Sodium 140 mmol/L (135-145); Total Bilirubin 0.4 mg/dl (0.2-1.3); Total Protein 6.7 g/dl (6.3-8.2); eGFR > 60.00
[2024-03-16 15:46] LABS: Urine Albumin 1+ (Neg - Trace); Urine Bilirubin Negative (Negative); Urine Character Slightly Cloudy (Clear); Urine Color Brown; Urine Glucose Negative (Negative); Urine Ketone Negative (Negative); Urine Leukocyte Trace (Negative); Urine Nitrite Negative (Negative); Urine Occult Blood 4+ (Negative); Urine Urobilinogen Negative (Neg - 1+)
[2024-03-16 16:11] LABS: Urine Red Blood Cell 90-100 /HPF (0-2)
[2024-03-16 16:12] LABS: Urine Bacteria Few (Negative)
[2024-03-16] MEDS: TRANEXAMIC ACID 250 MG INH (16:40)
--- NOTE | 2024-03-16 16:41 | HPS.HSE ---
Family Physician
-
Family Physician: Derrick Atkins
Chief Complaint
-
Left posterior back pain
History of Present Illness
77-year-old male from home by EMS complaining of left-sided posterior back pain 9 out of 10 and worse with movement along T7 area. He reports he was unable to stand earlier. He also reports urine dark in color with increased urgency. He also
reports a popping sensation on the right side of his TMJ joint yesterday. He reports pain bilateral TMJ area with chewing increased more on left side. He is able to fully open jaw. He denies headache, sore throat, fever, chills, cough, shortness
of breath, chest pain, palpitations, abdominal pain, nausea, vomiting, diarrhea he is currently wearing a left knee brace due to left knee instability after a fall 3 weeks ago and was seen in the ED on 02/21/2024. He has primary renal carcinoma with
renal biopsy on 03/04/2024. He had PET scan yesterday showing mets with bilateral pulmonary nodules, subcarinal mediastinum, right hilum, right adrenal gland and left adrenal gland several osseous foci in the left mandible, lesion left side of C3
vertebrae, soft tissue nodule along posterior abdominal wall soft tissue density in the left scapula.
He has past medical history of A-fib/atrial flutter, HTN, history of cardiomyopathy 2019 with EF of 25% required LifeVest x 1 month�resolved asthma, obstructive sleep apnea, right cell renal carcinoma with new recent mets, anemia/iron
deficiency
Medical History
Past Medical History
Past Medical History: Reports Other
Additional Past Medical History:
right cell renal carcinoma via biopsy 03/01/2024 with new recent mets via PET scan
A-fib/atrial flutter
HTN
history of cardiomyopathy 2019 with EF of 25% required LifeVest x 1 month�resolved
asthma
obstructive sleep apnea
Past Surgical History: Reports Other
Additional Past Surgical History:
Retina repair
Tonsillectomy
A flutter ablation 2019
Cataract extraction
Detached retina repair left eye
Social History
Tobacco: Non-smoker
Alcohol: Occasional (Once a month)
Drug: None
Personal:
Living: With Family ( Dominique)
Employment: Retired
Family History
Family History: Other (Mother lung cancer former smoker, father ID age 59, 1 brother living with history of Parkinson's and prostate cancer)
Allergies / Home Medications
Allergies reflects when Allergies were last updated in [employer].
Home Medications with original date entered in [employer]
Allergy/Medication List:
Allergies
Allergy/AdvReac Type Severity Reaction Status Date / Time
Sulfa (Sulfonamide Allergy Unknown Verified 03/16/24 13:49
Antibiotics)
Home Medications
furosemide 40 mg tablet 40 mg PO Q48H Fluid Retention/Swelling 01/21/20
metoprolol succinate 50 mg tablet,extended release 24 hr 50 mg PO QPM Heart Disease/BP 01/21/20
tamsulosin 0.4 mg capsule 0.4 mg PO HS Urinary Issue 02/16/24
acetaminophen 500 mg tablet (Tylenol Extra Strength) 1,000 mg PO Q6HPRN PRN mild pain 03/16/24
apixaban 5 mg tablet (Eliquis) 5 mg PO BID Blood Clot Prevention/Tx 03/16/24
fluticasone fur. 100 mcg-umeclid 62.5 mcg-vilant 25 mcg inhalat.powder (Trelegy Ellipta) 1 inh inhalation R DAILY Lung/Breathing Issues 03/16/24
potassium chloride 10 mEq tablet,extended release(part/cryst) 10 meq PO DAILY Electrolyte Repletion 03/16/24
sacubitril 24 mg-valsartan 26 mg tablet (Entresto) 1 tab PO BID heart failure 03/16/24
Review of Systems
-
History Source: Patient and Family ( joined at bedside)
A 12 point ROS was completed and negative except as noted: Yes
Constitutional: Reports Fatigue (Chronic); Denies Chills
EENT: Reports Other (Bilateral TMJ pain); Denies Sore Throat
Respiratory: Denies Cough or Trouble Breathing
Cardiac: Denies Chest Pain, Diaphoresis, Palpitations or Syncope
Abdomen/GI: Denies Abdominal Pain, Nausea, Vomiting, Diarrhea, Constipated, Bloody Stools or Black Stools
: Reports Dark Urine; Denies Dysuria, Frequency, Flank Pain, Incontinence, Difficulty Voiding, Urgency or Bleeding
Musculoskeletal: Reports Edema (Chronic +1 bilateral lower legs) and Other (Point tenderness posterior paraspinal muscle at T7 area nonradiating); Denies Joint Pain
Skin: Denies Itching or Rash
Neurological: Reports Weakness (Lifting self up in bed and turning secondary to back pain); Denies Dizzy or Headache
Endocrine: Reports No Symptoms
Hematologic/Lymphatic: Reports No Symptoms
Psych: Reports Calm
Physical Exam
Vital Signs
Vital Signs
Temp Pulse Resp BP Pulse Ox
97.8 F 71 20 108/70 94
03/16/24 13:45 03/16/24 15:15 03/16/24 15:15 03/16/24 15:00 03/16/24 15:00
Physical Exam
General: Conversant and Pain; No Fever or Chills
HEENT: NormoCephalic, Anicteric, PERRLA, [place] Conjunctivae, No Ptosis and Other (Bony protrusion along left buccal area near tooth # 18 missing, I&D attempted in ER but this was a bony protrusion, full rom jaw, + clicking near bilat tmj joints, nml
forward , side to side mvmt jaw)
Respiratory: Clear; No Wheezes or Rales
Cardiac: S1/S2, Regular Rhythm and Peripheral Edema (+1 bilateral); No Murmur, Rub or Gallop
Breast: Deferred by me
GI: Soft, Non Tender, Non Distended, Normal Bowel Sounds and No Hepatosplenomegaly
Rectal: Deferred by Provider
Genito-urinary: Deferred by me and No costovertebral tender
Musculoskeletal: No Clubbing, No Cyanosis, Edema, Left Lower Extremity (Trace to +1 pitting), Edema, Right Lower Extremity (Trace to +1 pitting) and Other (Point tenderness posterior paraspinal muscle at T7 area nonradiating); No Edema, Left Upper
Extremity or Edema, Right Upper Extremity
Skin: Warm and Dry; No Rash or Jaundice
Neuro: AO x 3, Nonfocal/grossly intact, Cranial Nerves Intact, No Sensory Deficits and Other (Limited sitting forward and turning to side secondary to back pain); No Slurred Speech, Facial Droop or Tremors
Psych: Calm
Laboratory Results
-
03/16/24 13:57
03/16/24 14:41
Laboratory Results
Total Bilirubin 0.4 mg/dl (0.2-1.3) 03/16/24 14:41
AST 25 U/L (17-59) 03/16/24 14:41
ALT 20 U/L (0-50) 03/16/24 14:41
Alkaline Phosphatase 104 U/L (38-126) 03/16/24 14:41
Impression/Plan
-
Impression/plan:
OBS MedSurg
#Uncontrolled posterior thoracic back pain with ambulatory dysfunction
T7 paraspinal tenderness
-PT/OT/spring encaser consult
-Tylenol, Percocet, Dilaudid as needed
-Bowel regimen
-check lumbar MRI with contrast
#Left side C3 lesion concern for mets
-Check MRI cervical spine with contrast
#Right renal mass suspected renal cell carcinoma with new recent mets right adrenal right hilum, left mandible, possible left C3 vertebral, left scapula on PET scan
-Consult Oncology
PET scan
1. Large focus of moderately intense FDG avid uptake in the right kidney corresponding with the patient's known primary malignancy.
2. FDG uptake involving numerous bilateral pulmonary nodules, subcarinal mediastinum, right hilum, right adrenal gland and left adrenal gland, as noted below, suspicious for FDG avid malignancy.
3. Several osseous foci of FDG uptake suspicious for malignancy, as detailed below. Of note, one lesion is seen most likely with epicenter involving a lucent lesion in the left mandible, difficult to determine anatomically
with this imaging modality. Suggest CT Facial Bone for more complete evaluation.
Lesion also suspected along the left side of the cervical spine possibly involving the left side of the C3 vertebral level for which MRI is suggested for more complete evaluation.
4. Small focus of minimal/mild FDG uptake involving an approximate 0.9 cm superficial midline soft tissue nodule along the posterior abdominal wall.
This may represent inflammatory activity are associated with soft tissue lesion such as a sebaceous cyst. A metastatic/malignant focus is also possible.
5. Prominent conglomerate moderately intense soft tissue FDG uptake seen within soft tissue density anterior to the left scapula which at least must be deemed suspicious for malignancy.
#Left-sided jaw pain with chewing likely secondary to TMJ versus left mandibular mass
-Check CT facial bone concern for pathological fracture
#Chronic anemia/iron deficiency
Recent iron transfusions
Hgb 9.7 appears better than baseline
-Follow CBC
# A-fib/atrial flutter
#History of a flutter ablation 01/21/2020
- cont Eliquis 5 mg twice daily, metoprolol succinate 50 mg every afternoon with hold parameters
# HTN-benign
BP 108/70
-Continue metoprolol succinate 50 mg every afternoon, Entresto twice daily, Lasix 40 mg every 48 hours with hold parameters
#Chronic peripheral edema
I/O, daily weights
-Apply Tubigrip's
-Continue Lasix 40 mg every 48 H with hold parameters for BP
#History of cardiomyopathy 2019 with EF of 25% required LifeVest x 1 month�resolved
2D echo 07/23/2023: EF 60-65%, mild LVH, no wall abnormalities, no valvular disease, dilated aortic root 4.6 cm
-Continue Entresto 1 tab twice daily, furosemide 40 mg every 48 H
#Asthma-no acute exacerbation
-Continue Trelegy
#Obstructive sleep apnea
- to bring full mask CPAP and tomorrow
#Obesity due to excess calorie consumption�BMI 34
Weight loss recommended
DVT prophylaxis
Subcu Lovenox
DNR
[2024-03-16] MEDS: ZOFRAN 4 MG IV (16:49)
[2024-03-16] MEDS: DILAUDID 1 MG IV ×2 (16:49→20:12)
--- NOTE | 2024-03-16 18:28 | W.PN.UPDATE ---
Update Note
Progress Note Update
This is an addendum to the H&P written by Kierra Jacobson on 03/16/2024. Patient seen and examined independently with [employer] LO[employer]ER.
68-year-old male past medical history of right renal cell carcinoma diagnosed on 03/01 with PET scan yesterday showing several osseous foci of FDG uptake including left mandible, left side of cervical spine, C3 vertebral body, left scapula,,
paroxysmal atrial fibrillation, cardiomyopathy, asthma, obstructive sleep apnea, presenting with left back pain in the paraspinal thoracic region. Check cervical/thoracic MRI to evaluate for spinal metastases. PT/OT.
Patient also with popping sensation in right mandible as well as pain in the left mandible. This is concerning for pathological fracture. Check CT facial bone. Could also be component of TMJ syndrome.
Patient was also having noted to have bony protrusion near tooth #18. This was attempted to be drained by ER but no drainage was returned. Likely this is due to metastases.
--- NOTE | 2024-03-16 19:30 | PTCARENOTE ---
Pt received at shift change. Pt jeramy, AAOX3, settled into bed, and only complains of 9/10 pain when readjusts himself. Pt given PRN medication for pain. Pt bed in lowest position and call vanegas within reach. Pt educated on importance of call vanegas
use. Pt expresses understanding. Will continue with current plan of care.
[2024-03-16] MEDS: TOPROL XL 50 MG PO (20:07)
[2024-03-16] MEDS: ENTRESTO 24 MG/26 MG 1 TAB PO (20:08)
[2024-03-16] MEDS: ELIQUIS 5 MG PO (20:09)
[2024-03-16] MEDS: FLOMAX 0.4 MG PO (20:12)
[2024-03-17] MEDS: DILAUDID 1 MG IV ×3 (04:31→20:29)
[2024-03-17 05:55] VITALS: BMI 33.3
[2024-03-17 07:00] VITALS: BP 90/59
[2024-03-17] MEDS: ELIQUIS 5 MG PO ×2 (08:10→20:39)
[2024-03-17] MEDS: ENTRESTO 24 MG/26 MG PO (08:10)
[2024-03-17] MEDS: KCL 10 MEQ PO (08:11)
[2024-03-17 08:31] LABS: % Basophils 0.5 % (0-2); % Eosinophils 2.2 % (0-6); % Lymphocytes 14.2 % (20.5-51.1); % Monocytes 9.8 % (1.7-9.3); % Neutrophils 72.3 % (42.2-75.2); Absolute Basophils 0.1 10^3/uL (0-0.2); Absolute Eosinophils 0.2 10^3/uL (0-0.7); Absolute Immature Granulocytes 0.1 10^3/uL (0-0.05); Absolute Lymphocytes 1.5 10^3/uL (1.2-3.4); Absolute Neutrophils 7.6 10^3/uL (1.4-6.5); Hematocrit 30.9 % (39.0-52.0); Hemoglobin 9.4 g/dL (13.0-18.0); Mean Corp Hgb Conc. 30.4 g/dL (33.0-37.0); Mean Corpuscular Volume 85.4 fL (80.0-94.0); Nucleated Red Blood Cells % 0 % (-); Platelet Count 413 10^3/uL (130-400); Red Blood Cell Count 3.62 10^6/uL (4.70-6.10); Red Cell Dist. Width 17.6 % (11.5-14.5); White Blood Cell Count 10.6 10^3/uL (4.8-10.8)
--- NOTE | 2024-03-17 09:00 | CON.ONC ---
Documented by User: Melany Rosenbaum DO, Resident 03/17/24 09:17
Impression
Impression
77-year-old male with recent diagnosis of metastatic renal cell carcinoma to multiple sites, with progressive mid low back pain.
Plan
Plan
Rule out concern of cord compression patient pending MRI cervical spine today.
For back pain control, patient requireslong-acting therapy. Start patient on Duragesic patch 25 mg every 3 days. Continue Dilaudid and oxycodone as needed.
Patient to follow-up outpatient with Dr. Kennedy for management of renal cell carcinoma.
Continue medical management per primary team recommendations.
Patient History
History of Present Illness
Patient is 77-year-old male with past medical history of A-fib, hypertension, cardiomyopathy, asthma, DANIEL with newly diagnosed metastatic right renal cell carcinoma on 02/27 presenting to [facility] with left-sided posterior back pain. He
reports the pain is mostly at the level of T9. He has a known Dr. Kennedy at our office, was supposed to meet with her today regarding recent diagnosis of renal cell carcinoma.
PET scan 03/16 showed bilateral pulmonary nodules, bilateral adrenal nodules, several osseous foci left mandible, left C3 vertebrae lesion, left scapular soft tissue density and soft tissue nodule along posterior abdominal wall. Today he reports
ongoing mid/lower back pain that is controlled while sitting, but exacerbated when turning or lying down.
Past-Medical/Surgical History
right cell renal carcinoma via biopsy 03/01/2024 with new recent mets via PET scan
A-fib/atrial flutter
HTN
history of cardiomyopathy 2019 with EF of 25% required LifeVest x 1 month�resolved
asthma
obstructive sleep apnea
Past Surgical History: Reports Other
Additional Past Surgical History:
Retina repair
Tonsillectomy
A flutter ablation 2019
Cataract extraction
Detached retina repair left eye
Patient Medication
�Medication �Instructions �Recorded �Confirmed �Last Taken �Type
furosemide 40 mg tablet 40 mg PO Q48H Fluid 01/21/20 03/16/24 03/16/24 History
Retention/Swelling
metoprolol succinate 50 mg 50 mg PO QPM Heart Disease/BP 01/21/20 03/16/24 03/15/24 History
tablet,extended release 24 hr
tamsulosin 0.4 mg capsule 0.4 mg PO HS Urinary Issue 02/16/24 03/16/24 03/15/24 History
acetaminophen 500 mg tablet 1,000 mg PO Q6HPRN PRN mild pain 03/16/24 03/16/24 03/16/24 History
(Tylenol Extra Strength)
apixaban 5 mg tablet (Eliquis) 5 mg PO BID Blood Clot 03/16/24 03/16/24 03/16/24 History
Prevention/Tx
fluticasone fur. 100 mcg-umeclid 1 inh inhalation R DAILY 03/16/24 03/16/24 03/16/24 History
62.5 mcg-vilant 25 mcg Lung/Breathing Issues
inhalat.powder (Trelegy Ellipta)
potassium chloride 10 mEq 10 meq PO DAILY Electrolyte 03/16/24 03/16/24 03/16/24 History
tablet,extended release(part/cryst) Repletion
sacubitril 24 mg-valsartan 26 mg 1 tab PO BID heart failure 03/16/24 03/16/24 03/16/24 History
tablet (Entresto)
Active Medications
Generic Name Dose Route Start Last Admin
Trade Name Freq PRN Reason Stop Dose Admin
Acetaminophen 650 mg 03/16/24 19:16
Acetaminophen 325 Mg Tablet PO 04/13/24 19:15
Q4HPRN PRN
mild pain/CORONADO/temp> 100.4F
Apixaban 5 mg 03/16/24 20:00 03/17/24 08:10
Apixaban (Eliquis) 5 Mg Tablet PO 04/13/24 19:59 5 mg
BID AIDAN Administration
Bisacodyl 10 mg 03/16/24 19:16
Bisacodyl 10 Mg Rectal Suppository RECTAL 04/13/24 19:15
[id number] PRN
constipation
Budesonide/Formoterol Fumarate 2 puff 03/16/24 20:00 03/17/24 08:47
Symbicort Inhaler 80/4.5 INH 04/13/24 19:59 Not Given
R BID AIDAN
Furosemide 40 mg 03/18/24 08:00
Furosemide 40 Mg Tablet PO 04/15/24 07:59
Q48H AIDAN
Hydromorphone HCl 1 mg 03/16/24 19:16 03/17/24 04:31
Hydromorphone 0.5 Mg/0.5 Ml Syringe IV 03/30/24 19:15 1 mg
Q4HPRN PRN Administration
severe pain
Metoprolol Succinate 50 mg 03/16/24 19:16 03/16/24 20:07
Metoprolol 50 Mg Extended Release Tablet PO 04/13/24 19:15 50 mg
QPM AIDAN Administration
Ondansetron HCl 4 mg 03/16/24 19:16
Ondansetron 4 Mg/2 Ml Vial IV 04/13/24 19:15
Q6HPRN PRN
NAUSEA/VOMITING
Oxycodone HCl 5 mg 03/16/24 19:16
Oxycodone 5 Mg Regular Release Tablet PO 03/30/24 19:15
Q4HPRN PRN
moderate pain
Polyethylene Glycol 17 grams 03/16/24 19:16
Polyethylene Glycol Powder 17 Grams Packet PO 04/13/24 19:15
DAILYPRN PRN
constipation
Potassium Chloride 10 meq 03/17/24 08:00 03/17/24 08:11
Potassium Chloride 10 Meq Extended Release Tablet PO 04/14/24 07:59 10 meq
DAILY AIDAN Administration
Sacubitril/Valsartan 1 tab 03/16/24 20:00 03/17/24 08:10
Sacubitril 24 Mg/Valsartan 26 Mg (Entresto) Tab PO 04/13/24 19:59 Not Given
BID AIDAN
Senna/Docusate Sodium 1 tablet 03/16/24 19:16
Docusate W/Senna (Kristan-Colace) Tablet PO 04/13/24 19:15
BIDPRN PRN
constipation
Tamsulosin HCl 0.4 mg 03/16/24 22:00 03/16/24 20:12
Tamsulosin 0.4 Mg Capsule PO 04/13/24 21:59 0.4 mg
HS AIDAN Administration
Tiotropium [place] 2 puff 03/17/24 08:00 03/17/24 08:46
Tiotropium (Spiriva Respimat) 2.5 Mcg Inhaler INH 04/14/24 07:59 Not Given
R DAILY AIDAN
Review of Systems
-
History Source: Patient
Constitutional: Reports Other (Back pain)
EENT: Reports Other (Difficulty chewing)
Respiratory: Reports No Symptoms
Cardiac: Reports No Symptoms
GI: Reports No Symptoms
: Reports Bleeding (1 episode of hematuria, currently resolved)
Musculoskeletal: Reports Other (Right sided mid to low back pain)
Skin: Reports No Symptoms
Psych: Reports No Symptoms
Physical Exam
-
General: Well Developed, Well Nourished, Comfortable and Conversant
Musculoskeletal: No Clubbing, No Cyanosis and Other (Mild edema in lower extremities, point tenderness on right T9 level)
Skin: Warm and Dry
Psych: Calm
Labs
Lab Results
WBC 10.6 10^3/uL (4.8-10.8) 03/17/24 08:00
RBC 3.62 10^6/uL (4.70-6.10) L 03/17/24 08:00
Hgb 9.4 g/dL (13.0-18.0) L 03/17/24 08:00
Hct 30.9 % (39.0-52.0) L 03/17/24 08:00
MCV 85.4 fL (80.0-94.0) 03/17/24 08:00
MCH 26.0 pg (27.0-31.0) L 03/17/24 08:00
MCHC 30.4 g/dL (33.0-37.0) L 03/17/24 08:00
RDW 17.6 % (11.5-14.5) H 03/17/24 08:00
Plt Count 413 10^3/uL (130-400) H 03/17/24 08:00
MPV 10.0 fL (7.4-10.4) 03/17/24 08:00
Abs Immat Gran (auto) 0.1 10^3/uL (0-0.05) H 03/17/24 08:00
Absolute Neuts (auto) 7.6 10^3/uL (1.4-6.5) H 03/17/24 08:00
Absolute Lymphs (auto) 1.5 10^3/uL (1.2-3.4) 03/17/24 08:00
Absolute Monos (auto) 1.0 10^3/uL (0.1-0.6) H 03/17/24 08:00
Absolute Eos (auto) 0.2 10^3/uL (0-0.7) 03/17/24 08:00
Absolute Basos (auto) 0.1 10^3/uL (0-0.2) 03/17/24 08:00
Immature Gran % 1.0 % (0-0.5) H 03/17/24 08:00
Neutrophils % 72.3 % (42.2-75.2) 03/17/24 08:00
Lymphocytes % 14.2 % (20.5-51.1) L 03/17/24 08:00
Monocytes % 9.8 % (1.7-9.3) H 03/17/24 08:00
Eosinophils % 2.2 % (0-6) 03/17/24 08:00
Basophils % 0.5 % (0-2) 03/17/24 08:00
Creatinine 1.2 mg/dL (0.7-1.3) 03/16/24 14:41
Vital Signs
Vital Signs
Temp Pulse Resp BP Pulse Ox
97.7 F 79 16 90/59 94
03/17/24 07:00 03/17/24 07:00 03/17/24 07:00 03/17/24 08:10 03/17/24 07:00

Documented by User: Diego Zimmerman MD 03/17/24 09:23
Plan
Plan
Rule out concern of cord compression patient pending MRI cervical spine today.
For back pain control, patient requires long-acting therapy. Start patient on Duragesic patch 25 mg every 3 days. Continue Dilaudid and oxycodone as needed.
Patient to follow-up outpatient with Dr. Kennedy for management of renal cell carcinoma.
Continue medical management per primary team recommendations.
ADDENDUM:
I saw and examined the patient.
The Resident's note was reviewed and I agree with the note.
Comment:
WDWN man in NAD sitting at bedside
RRR
Clear
IMP:
Newly diagnosed biopsy proven Met RCC poorly differentiated with acute onset severe left lateral back pain.� For MRI to R/O cord (somewhat doubt cord based on PET negative and location of pain) & starting Duragesic.� F/U with [facility] to review Tx
options for met RCC.
[2024-03-17 09:18] LABS: ALT (SGPT) 19 U/L (0-50); AST (SGOT) 20 U/L (17-59); Albumin 3.6 g/dl (3.5-5.0); Alkaline Phosphatase 103 U/L (38-126); Blood Urea Nitrogen 20 mg/dl (9-20); Calcium 10.1 mg/dl (8.4-10.2); Carbon Dioxide 22 mmol/L (22-30); Chloride 100 mmol/L (98-107); Estimated Creatinine Clearance 74 ml/min; Glucose 116 mg/dl (70-99); Potassium 4.9 mmol/L (3.5-5.1); Sodium 138 mmol/L (135-145); Total Bilirubin 0.5 mg/dl (0.2-1.3); Total Protein 6.8 g/dl (6.3-8.2); eGFR > 60.00
[2024-03-17] MEDS: DURAGESIC 25 MCG/HR PATCH 1 PATCH TRANSDERM (10:37)
--- NOTE | 2024-03-17 10:38 | W.PN.HOSP.TC ---
Today's Communication/Plan
-
await MRI studies
pain control, rehab evals
Assessment / Plan
Assessment / Plan
PET scan
1. Large focus of moderately intense FDG avid uptake in the right kidney corresponding with the patient's known primary malignancy.
2. FDG uptake involving numerous bilateral pulmonary nodules, subcarinal mediastinum, right hilum, right adrenal gland and left adrenal gland, as noted below, suspicious for FDG avid malignancy.
3. Several osseous foci of FDG uptake suspicious for malignancy, as detailed below. Of note, one lesion is seen most likely with epicenter involving a lucent lesion in the left mandible, difficult to determine anatomically
with this imaging modality. Suggest CT Facial Bone for more complete evaluation.
Lesion also suspected along the left side of the cervical spine possibly involving the left side of the C3 vertebral level for which MRI is suggested for more complete evaluation.
4. Small focus of minimal/mild FDG uptake involving an approximate 0.9 cm superficial midline soft tissue nodule along the posterior abdominal wall.
This may represent inflammatory activity are associated with soft tissue lesion such as a sebaceous cyst. A metastatic/malignant focus is also possible.
5. Prominent conglomerate moderately intense soft tissue FDG uptake seen within soft tissue density anterior to the left scapula which at least must be deemed suspicious for malignancy.
Assessment:
upper thoracic back pain, acute
ambulatory dysfunction
- PT/OT
- await MRI studies to r/o cord compression
- Continue Tylenol, Percocet, Dilaudid
- add Duragesic patch
- concurrent bowel regimen
Metastatic poorly differentiated RCC with osseous mets, lung field meds, L mandible meds
- PET and CT reviewed with family
- OP f.u Oncology for definitive treatment
Left jaw pain consistent with osseous mets seen on CT
- s/p ER aspiration attempt with bloody drainage
Chronic anemia
Iron deficiency anemia
- Hb 9.7
A. Fib
A. Flutter
- continue Eliquis/Metoprolol
Essential HTN
- continue BB/Entresto/Lasix
Chronic peripheral edema
- I/O, daily weights
- Apply Tubigrip's
- Continue Lasix 40 mg every 48 H with hold parameters for BP
History of cardiomyopathy 2019 with EF of 25% required LifeVest x 1 month�resolved
- updated Echo 07/2023: normal EF
Asthma-no acute exacerbation
- continue Trelegy
Obstructive sleep apnea
- to bring full mask CPAP and tomorrow
Obesity due to excess calorie consumption
- add ensure supplements
DVT ppx: Lovenox
Code: DNR
Anticipated Discharge: > 48 hours
Subjective/Interval History
-
Date of Service: March 17, 2024
reports back pain
Duragesic patch placed
Objective Data
-
Labs:
Laboratory Results
03/17/24
08:00
WBC 10.6
Hgb 9.4 L
Hct 30.9 L
Plt Count 413 H
Sodium 138
Potassium 4.9
Chloride 100
Carbon Dioxide 22
BUN 20
Creatinine 1.2
Glucose 116 H
Calcium 10.1
Total Bilirubin 0.5
AST 20
ALT 19
Alkaline Phosphatase 103
Vital Signs:
Vital Signs
Temp Pulse Resp BP Pulse Ox
97.7 F 79 16 90/59 94
03/17/24 07:00 03/17/24 07:00 03/17/24 07:00 03/17/24 08:10 03/17/24 08:25
I&O
03/16/24 03/17/24 03/18/24
06:59 06:59 06:59
Intake Total 480 / 480
Output Total 800 / 800
Balance -320 / -320
Physical Exam
-
General: No Apparent Distress and Obese
HEENT: Normocephalic and Atraumatic
Respiratory: Negative Wheezes
Cardiac: Regular Rhythm and S1/S2
GI: Soft
Genito-urinary: No Costovertebral Tender
Musculoskeletal: No Edema
Neuro: AO x 3
Hematologic / Lymphatic: No Lymphadenopathy
Psych: Calm
Data Reviewed
-
Total Time Spent with Patient (in minutes): 41
Labs: Labs Reviewed by me
--- NOTE | 2024-03-17 12:42 | CM ---
Patient seen bedside.
Dx met ca
IA completed.
Patient lives with spouse in a 1 story home with just a threshold.
Patient ambulates with a rollator.
Independent prior to admission.
Patient with a recent fall.
PT/OT evals (P).
Patient aware of CM availability for needs.
PCP: Dr Atkins
Pharmacy: [facility]
Plan: VN vs rehab await PT/OT.
[2024-03-17] MEDS: NON-FORMULARY ITEM 1 UNIT INH (13:14)
[2024-03-17 15:07] VITALS: BP 102/59
[2024-03-17] MEDS: TUMS EX (EXTRA STRENGTH) CHEWABLE TABLET 600 MG PO ×2 (16:13→20:38)
[2024-03-17] MEDS: TOPROL XL PO (17:12)
[2024-03-17] MEDS: ZOFRAN 4 MG IV (20:27)
[2024-03-17] MEDS: ENTRESTO 24 MG/26 MG 1 TAB PO (20:41)
[2024-03-17] MEDS: FLOMAX 0.4 MG PO (20:41)
[2024-03-17 23:30] VITALS: BP 132/83
[2024-03-18 05:54] VITALS: BMI 33.4
[2024-03-18 07:04] VITALS: BP 101/62
[2024-03-18] MEDS: NON-FORMULARY ITEM 1 UNIT INH (07:44)
[2024-03-18 07:57] LABS: Hemoglobin 8.9 g/dL (13.0-18.0); Mean Corp Hgb Conc. 30.7 g/dL (33.0-37.0); Mean Corpuscular Volume 84.8 fL (80.0-94.0); Platelet Count 360 10^3/uL (130-400); Red Blood Cell Count 3.42 10^6/uL (4.70-6.10); Red Cell Dist. Width 17.3 % (11.5-14.5); White Blood Cell Count 12.4 10^3/uL (4.8-10.8)
[2024-03-18] MEDS: ENTRESTO 24 MG/26 MG PO ×2 (08:08→19:56)
[2024-03-18] MEDS: LASIX PO (08:09)
[2024-03-18] MEDS: ELIQUIS 5 MG PO ×2 (08:09→19:51)
[2024-03-18] MEDS: KCL 10 MEQ PO (08:09)
[2024-03-18 08:12] LABS: Blood Urea Nitrogen 17 mg/dl (9-20); Calcium 10.1 mg/dl (8.4-10.2); Carbon Dioxide 24 mmol/L (22-30); Chloride 99 mmol/L (98-107); Estimated Creatinine Clearance 81 ml/min; Glucose 125 mg/dl (70-99); Potassium 4.5 mmol/L (3.5-5.1); Sodium 135 mmol/L (135-145); eGFR > 60.00
[2024-03-18] MEDS: SENOKOT-S 1 TABLET PO ×2 (10:15→19:51)
[2024-03-18] MEDS: MIRALAX 17 GRAMS PO (10:17)
--- NOTE | 2024-03-18 10:30 | W.PN.ONC2 ---
Today's Communication / Plan
-
MRI of the thoracic spine shows concern of cord compression not secondary to malignancy.
For back pain control, continue Duragesic patch 25 mg every 3 days and Dilaudid/ oxycodone as needed.
Patient to follow-up outpatient with Dr. Kennedy for management of renal cell carcinoma.
Continue medical management per primary team recommendations.
Impression
Impression
77-year-old male with recent diagnosis of metastatic renal cell carcinoma to multiple sites, with progressive mid low back pain.
Plan
Plan
Rule out concern of cord compression patient pending MRI cervical spine today.
For back pain control, patient requires long-acting therapy. Start patient on Duragesic patch 25 mg every 3 days. Continue Dilaudid and oxycodone as needed.
Patient to follow-up outpatient with Dr. Kennedy for management of renal cell carcinoma.
Continue medical management per primary team recommendations.
ADDENDUM:
I saw and examined the patient.
The Resident's note was reviewed and I agree with the note.
Comment:
WDWN man in NAD sitting at bedside
RRR
Clear
IMP:
Newly diagnosed biopsy proven Met RCC poorly differentiated with acute onset severe left lateral back pain.� For MRI to R/O cord (somewhat doubt cord based on PET negative and location of pain) & starting Duragesic.� F/U with to review Tx
options for met RCC.
Subjective/Objective
Chief Complaint
Oncology follow-up
Subjective
Patient underwent thoracic spine MRI today. Findings show multilevel disc protrusions, most pronounced at T6-7, with secondary advanced thoracic cord compression and moderate disc protrusion at T7-8 with moderate cord compression. Findings
unrelated to malignancy as MR head no evidence of osseous metastatic disease.
Vital Signs:
Vital Signs
Temp Pulse Resp BP Pulse Ox
98.1 F 88 16 101/62 93
03/18/24 07:04 03/18/24 07:45 03/18/24 07:45 03/18/24 08:08 03/18/24 07:45
Lab Results:
Laboratory Data
WBC 12.4 10^3/uL (4.8-10.8) H 03/18/24 07:02
Hgb 8.9 g/dL (13.0-18.0) L 03/18/24 07:02
Plt Count 360 10^3/uL (130-400) 03/18/24 07:02
eGFR > 60.00 03/18/24 07:02
--- NOTE | 2024-03-18 10:56 | W.PN.HOSP.TC ---
Today's Communication/Plan
-
Neurosx consulted
PT/OT if no surgical intervention recommended
pain control + bowel regimen (scheduled doses)
prn Reglan for hiccups
Assessment / Plan
Assessment / Plan
PET scan
1. Large focus of moderately intense FDG avid uptake in the right kidney corresponding with the patient's known primary malignancy.
2. FDG uptake involving numerous bilateral pulmonary nodules, subcarinal mediastinum, right hilum, right adrenal gland and left adrenal gland, as noted below, suspicious for FDG avid malignancy.
3. Several osseous foci of FDG uptake suspicious for malignancy, as detailed below. Of note, one lesion is seen most likely with epicenter involving a lucent lesion in the left mandible, difficult to determine anatomically
with this imaging modality. Suggest CT Facial Bone for more complete evaluation.
Lesion also suspected along the left side of the cervical spine possibly involving the left side of the C3 vertebral level for which MRI is suggested for more complete evaluation.
4. Small focus of minimal/mild FDG uptake involving an approximate 0.9 cm superficial midline soft tissue nodule along the posterior abdominal wall.
This may represent inflammatory activity are associated with soft tissue lesion such as a sebaceous cyst. A metastatic/malignant focus is also possible.
5. Prominent conglomerate moderately intense soft tissue FDG uptake seen within soft tissue density anterior to the left scapula which at least must be deemed suspicious for malignancy.
C-MRI: There are bilateral pulmonary nodules within the visualized upper lungs, compatible with pulmonary metastatic disease. There is a focal enhancing metastatic lesion within the left superior aspect of the C3 vertebral body. This extends into
the adjacent paraspinal soft tissues left anterolaterally. Compression of the medial margin of the left vertebral artery with no evidence for encasing or luminal narrowing. There is a enhancing metastatic lesion within the right posterior paraspinal
musculature at the C3 level. Changes of degenerative disc disease. At C3-4, there is cord compression and mild central canal stenosis. No convincing MR evidence for myelopathic signal. See above narrative for detailed findings at each level, with
multilevel foraminal narrowing.
T-MRI: No MR evidence of osseous metastatic disease. No intrinsic thoracic cord signal alteration or abnormal enhancement. Multilevel disc protrusions are present, as described. Most pronounced at T6-7, with secondary advanced thoracic cord
compression. No associated abnormal cord signal alteration. Moderate disc protrusion at T7-8 with moderate cord compression. Please refer to above discussion for specific and additional details.
Assessment:
upper thoracic back pain, acute
ambulatory dysfunction
- PT/OT evals when able
- s/p MRI - studies summarized above
- consult Neurosurgery given findings of cord compression
- continue Tylenol, Percocet, Dilaudid, Duragesic patch
- concurrent bowel regimen
Metastatic poorly differentiated RCC with osseous mets, lung field meds, L mandible meds
- PET and CT reviewed with family
- OP follow up Oncology for definitive treatment discussions
Left jaw pain consistent with osseous mets seen on CT
- s/p ER aspiration attempt with bloody drainage
Chronic anemia
Iron deficiency anemia
- Hb 8.9
A. Fib
A. Flutter
- continue Eliquis/Metoprolol
Essential HTN
- continue BB/Entresto/Lasix
Chronic peripheral edema
- I/O, daily weights
- Apply Tubigrip's
- Continue Lasix 40 mg every 48 H with hold parameters for BP
History of cardiomyopathy 2019 with EF of 25% required LifeVest x 1 month�resolved
- updated Echo 07/2023: normal EF
Asthma-no acute exacerbation
- continue Trelegy
Obstructive sleep apnea
- to bring full mask CPAP
Obesity due to excess calorie consumption
- continue ensure supplements
DVT ppx: Lovenox
Code: DNR
Anticipated Discharge: > 48 hours
Subjective/Interval History
-
Date of Service: March 18, 2024
tolerating Fentanyl patch; back pain stable 12/14
no BM yet, has hiccups intractable
no other complaints presently
Objective Data
-
Labs:
Laboratory Results
03/18/24
07:02
WBC 12.4 H
Hgb 8.9 L
Hct 29.0 L
Plt Count 360
Sodium 135
Potassium 4.5
Chloride 99
Carbon Dioxide 24
BUN 17
Creatinine 1.1
Glucose 125 H
Calcium 10.1
Vital Signs:
Vital Signs
Temp Pulse Resp BP Pulse Ox
98.1 F 88 16 101/62 93
03/18/24 07:04 03/18/24 07:45 03/18/24 07:45 03/18/24 08:08 03/18/24 07:45
I&O
03/17/24 03/18/24 03/19/24
06:59 06:59 06:59
Intake Total 480 / 480 600 / 600
Output Total 800 / 800 10 / 10
Balance -320 / -320 590 / 590
Physical Exam
-
General: No Apparent Distress and Obese
HEENT: Normocephalic and Atraumatic
Respiratory: Negative Wheezes
Cardiac: Regular Rhythm and S1/S2
GI: Soft
Genito-urinary: No Costovertebral Tender
Neuro: AO x 3
Psych: Calm
Data Reviewed
-
Total Time Spent with Patient (in minutes): 42
Labs: Labs Reviewed by me
--- NOTE | 2024-03-18 13:20 | CM ---
Patient seen bedside with spouse.
awaiting PT/OT evaluations and Neurosurgery recommendations.
Cord compression on MRI.
Plan: CM to follow for recommendations
[2024-03-18] MEDS: REGLAN 5 MG IV (13:22)
[2024-03-18] MEDS: CITROMA 300 ML PO (15:00)
[2024-03-18 15:19] VITALS: BP 96/68
--- NOTE | 2024-03-18 17:05 | CON.NS ---
Consultation
-
Date/Time Consultation Performed: 03/18/2024; 17:15
Performing Provider: Marion
Chief Complaint
History of Present Illness
This is a neurosurgical consultation on a 77-year-old gentleman, who presented with left-sided posterior back pain, and with movement along the mid thoracic area. He, of note, has a recent diagnosis of primary renal cell carcinoma, confirmed with
renal biopsy performed on 03/04/2024. He had a PET scan that demonstrated multiple bilateral pulmonary nodules, subcarinal mediastinal, right hilar, right adrenal gland, left degree adrenal gland, as well as several osseous foci in the left
mandible, lesion on the left side of C3, soft tissue along the posterior abdominal wall and the left scapula.
Patient had an MRI of the cervical spine to evaluate the left C3 lesion. He was seen by oncology, and ultimately it was felt that cord compression needed to be ruled out. For back pain control, he was started on long-acting pain medications.
Patient is scheduled to follow-up with oncologist, Dr. Kennedy as outpatient.
Patient cervical spine MRI demonstrates enhancing metastatic lesion to the left side of the C3 vertebral body, as well as extending to the posterior paraspinal soft tissues anterior laterally. Additionally, MR of the thoracic spine demonstrates
multilevel disc intrusions, most pronounced this T6-T7. Neurosurgery consulted for additional input.
Patient seen and examined. Patient denies any neck pain, any upper extremity paresthesias, weakness, tingling. Denies any bowel difficulties.
Review of Systems
-
A 10 point review of systems including constitutional, ENT, GI, , cardiovascular, respiratory, endocrinologic, hematologic, musculoskeletal, neurologic, psychiatric, was performed, and was negative, except for stated in HPI.
Medication and Allergies
Home Medications
Home Medications
�Medication �Instructions �Recorded
furosemide 40 mg tablet 40 mg PO Q48H Fluid 01/21/20
Retention/Swelling
metoprolol succinate 50 mg 50 mg PO QPM Heart Disease/BP 01/21/20
tablet,extended release 24 hr
tamsulosin 0.4 mg capsule 0.4 mg PO HS Urinary Issue 02/16/24
acetaminophen 500 mg tablet 1,000 mg PO Q6HPRN PRN mild pain 03/16/24
(Tylenol Extra Strength)
apixaban 5 mg tablet (Eliquis) 5 mg PO BID Blood Clot 03/16/24
Prevention/Tx
fluticasone fur. 100 mcg-umeclid 1 inh inhalation R DAILY 03/16/24
62.5 mcg-vilant 25 mcg Lung/Breathing Issues
inhalat.powder (Trelegy Ellipta)
potassium chloride 10 mEq 10 meq PO DAILY Electrolyte 03/16/24
tablet,extended release(part/cryst) Repletion
sacubitril 24 mg-valsartan 26 mg 1 tab PO BID heart failure 03/16/24
tablet (Entresto)
Allergies
Allergies
Allergy/AdvReac Type Severity Reaction Status Date / Time
Sulfa (Sulfonamide Allergy Unknown Verified 03/16/24 13:49
Antibiotics)
Physical Exam
-
Exam:
Awake, alert, no apparent distress
Cranial nerves II through XII are grossly intact
Motor: 5/5 strength bilaterally in upper extremities and lower extremities
Sensation to light touch is intact bilaterally in the upper and lower extremities
Gait not tested
Head is normocephalic, atraumatic
Neck is supple
breathing nonlabored
Abdomen is distended
Extremities are warm
MRI of the cervical spine with and without contrast performed on 03/17/2024 was reviewed. There is evidence of metastatic disease involving the vertebral body of C3, as well as posteriorly at this level just dorsal to the lamina. No obvious
evidence of cord compression is seen. Additionally, MRI of the thoracic spine demonstrates degenerative disc protrusions most prominent at T6-T7. No obvious evidence of cord compression, or cord signal changes seen at this level.
Problems
-
Problem Status Onset Code
Metastatic cancer to bone C79.51
Assessment / Plan
-
This is a 68-year-old gentleman with a recent diagnosis of metastatic renal cell carcinoma, who presents with a C3 metastasis. At present time, given no obvious evidence of neural/cord compression, no neurosurgical intervention is recommended.
Recommended pain control as appropriate, as well as chemotherapy/immunotherapy as indicated per biopsy results/oncology.
Also consider radiation oncology consultation regarding adjuvant radiotherapy for his cervical spine metastasis, if indicated.
Follow-up on as-needed basis. Okay to mobilize with physical therapy/Occupational Therapy
[2024-03-18] MEDS: TOPROL XL PO (17:18)
[2024-03-18] MEDS: DUPHALAC/CHRONULAC 20 GRAMS PO (19:53)
[2024-03-18] MEDS: TUMS EX (EXTRA STRENGTH) CHEWABLE TABLET 600 MG PO (21:30)
[2024-03-18] MEDS: FLOMAX 0.4 MG PO (21:30)
[2024-03-18 23:30] VITALS: BP 113/70
[2024-03-19] MEDS: ZOFRAN 4 MG IV ×3 (03:56→17:04)
[2024-03-19] MEDS: TUMS EX (EXTRA STRENGTH) CHEWABLE TABLET 600 MG PO ×2 (04:02→21:55)
[2024-03-19 06:00] VITALS: BMI 33.6
[2024-03-19 07:35] VITALS: BP 129/80
[2024-03-19 07:45] LABS: Hematocrit 32.8 % (39.0-52.0); Hemoglobin 10.3 g/dL (13.0-18.0); Mean Corp Hgb Conc. 31.4 g/dL (33.0-37.0); Mean Corpuscular Hgb 25.9 pg (27.0-31.0); Mean Corpuscular Volume 82.6 fL (80.0-94.0); Mean Platelet Volume 10.2 fL (7.4-10.4); Platelet Count 457 10^3/uL (130-400); Red Blood Cell Count 3.97 10^6/uL (4.70-6.10); Red Cell Dist. Width 17.2 % (11.5-14.5); White Blood Cell Count 17.1 10^3/uL (4.8-10.8)
[2024-03-19] MEDS: NON-FORMULARY ITEM 1 UNIT INH (07:47)
[2024-03-19 08:04] VITALS: BP 129/80
[2024-03-19 08:12] LABS: Blood Urea Nitrogen 24 mg/dl (9-20); Calcium 11.2 mg/dl (8.4-10.2); Carbon Dioxide 28 mmol/L (22-30); Chloride 90 mmol/L (98-107); Estimated Creatinine Clearance 63 ml/min; Glucose 163 mg/dl (70-99); Potassium 4.9 mmol/L (3.5-5.1); Sodium 135 mmol/L (135-145); eGFR 54.07
[2024-03-19] MEDS: LR 1000 IV (09:09)
[2024-03-19 09:50] VITALS: BP 126/68; PULSE 120; O2SAT 92
[2024-03-19 09:51] VITALS: BP 126/60; PULSE 122; O2SAT 92
--- NOTE | 2024-03-19 10:20 | W.PN.ONC2 ---
Today's Communication / Plan
-
MRI of the thoracic spine shows concern of cord compression not secondary to malignancy. Neurosurgery states no neurosurgical intervention recommended.
Referral for outpatient radiation oncology consultation placed for evaluation of management of metastasis at the level of C3.
For back pain control, continue Duragesic patch 25 mg every 3 days and Dilaudid/ oxycodone as needed.
Patient to follow-up outpatient with Dr. Kennedy for management of renal cell carcinoma, scheduled for 03/25.
X-ray performed concern of bowel obstruction to be completed today. Pending results.
Continue medical management per primary team recommendations.
Impression
Impression
77-year-old male with recent diagnosis of metastatic renal cell carcinoma to multiple sites, with progressive mid low back pain.
Subjective/Objective
Chief Complaint
Oncology follow-up
Subjective
Pain improved with Duragesic patch, is able to ambulate slightly and move from bed to chair with less discomfort. Patient having vomiting with black liquid this a.m. Has not had recent bowel movement.
Vital Signs:
Vital Signs
Temp Pulse Resp BP Pulse Ox
97.6 F 87 16 129/80 94
03/19/24 07:35 03/19/24 07:48 03/19/24 07:48 03/19/24 07:35 03/19/24 07:48
Lab Results:
Laboratory Data
WBC 17.1 10^3/uL (4.8-10.8) H 03/19/24 06:25
Hgb 10.3 g/dL (13.0-18.0) L 03/19/24 06:25
Plt Count 457 10^3/uL (130-400) H D 03/19/24 06:25
eGFR 54.07 03/19/24 06:25
--- NOTE | 2024-03-19 12:48 | W.PN.HOSP.TC ---
Today's Communication/Plan
-
trial enema, suppository
GI Consultation
pain control
PT/OT
Assessment / Plan
Assessment / Plan
PET scan
1. Large focus of moderately intense FDG avid uptake in the right kidney corresponding with the patient's known primary malignancy.
2. FDG uptake involving numerous bilateral pulmonary nodules, subcarinal mediastinum, right hilum, right adrenal gland and left adrenal gland, as noted below, suspicious for FDG avid malignancy.
3. Several osseous foci of FDG uptake suspicious for malignancy, as detailed below. Of note, one lesion is seen most likely with epicenter involving a lucent lesion in the left mandible, difficult to determine anatomically
with this imaging modality. Suggest CT Facial Bone for more complete evaluation.
Lesion also suspected along the left side of the cervical spine possibly involving the left side of the C3 vertebral level for which MRI is suggested for more complete evaluation.
4. Small focus of minimal/mild FDG uptake involving an approximate 0.9 cm superficial midline soft tissue nodule along the posterior abdominal wall.
This may represent inflammatory activity are associated with soft tissue lesion such as a sebaceous cyst. A metastatic/malignant focus is also possible.
5. Prominent conglomerate moderately intense soft tissue FDG uptake seen within soft tissue density anterior to the left scapula which at least must be deemed suspicious for malignancy.
C-MRI: There are bilateral pulmonary nodules within the visualized upper lungs, compatible with pulmonary metastatic disease. There is a focal enhancing metastatic lesion within the left superior aspect of the C3 vertebral body. This extends into
the adjacent paraspinal soft tissues left anterolaterally. Compression of the medial margin of the left vertebral artery with no evidence for encasing or luminal narrowing. There is a enhancing metastatic lesion within the right posterior paraspinal
musculature at the C3 level. Changes of degenerative disc disease. At C3-4, there is cord compression and mild central canal stenosis. No convincing MR evidence for myelopathic signal. See above narrative for detailed findings at each level, with
multilevel foraminal narrowing.
T-MRI: No MR evidence of osseous metastatic disease. No intrinsic thoracic cord signal alteration or abnormal enhancement. Multilevel disc protrusions are present, as described. Most pronounced at T6-7, with secondary advanced thoracic cord
compression. No associated abnormal cord signal alteration. Moderate disc protrusion at T7-8 with moderate cord compression. Please refer to above discussion for specific and additional details.
Assessment:
upper thoracic back pain, acute
ambulatory dysfunction
- PT/OT evals when able
- s/p MRI - studies summarized above
- Neurosurgery consulted; no surgical intervention indicated
- continue Tylenol, Percocet, Duragesic patch
Constipation
- OBS series showing 'obstruction' Suspect more likely related to constipation
- continue Miralax/Senna. s/p Mag citrate and lactulose without success. trying enema, suppository today
- GI consulted
Metastatic poorly differentiated RCC with osseous mets, lung field meds, L mandible meds
- PET and CT reviewed with family
- OP follow up Oncology for definitive treatment discussions. May also benefit from Rad Onc consultation.
Left jaw pain consistent with osseous mets seen on CT
- s/p ER aspiration attempt with bloody drainage
Chronic anemia
Iron deficiency anemia
- Hb 10.3
A. Fib
A. Flutter
- continue Eliquis/Metoprolol
Essential HTN
- continue BB/Entresto/Lasix
Chronic peripheral edema
- I/O, daily weights
- Apply Tubigrip's
- Continue Lasix 40 mg every 48 H with hold parameters for BP
History of cardiomyopathy 2019 with EF of 25% required LifeVest x 1 month�resolved
- updated Echo 07/2023: normal EF
Asthma-no acute exacerbation
- continue Trelegy
Obstructive sleep apnea
- on CPAP
Obesity due to excess calorie consumption
- continue ensure supplements
DVT ppx: Lovenox
Code: DNR
Anticipated Discharge: > 48 hours
Subjective/Interval History
-
Date of Service: March 19, 2024
no BM yet this hospitalization despite multiple oral meds yesterday
overnight and into this morning, several rounds of vomiting
more comfortable after Zofran
Objective Data
-
Labs:
Laboratory Results
03/19/24
06:25
WBC 17.1 H
Hgb 10.3 L
Hct 32.8 L
Plt Count 457 H D
Sodium 135
Potassium 4.9
Chloride 90 L
Carbon Dioxide 28
BUN 24 H
Creatinine 1.4 H
Glucose 163 H
Calcium 11.2 H
Vital Signs:
Vital Signs
Temp Pulse Resp BP Pulse Ox
97.6 F 87 16 129/80 94
03/19/24 07:35 03/19/24 07:48 03/19/24 07:48 03/19/24 07:35 03/19/24 07:48
I&O
03/18/24 03/19/24 03/20/24
06:59 06:59 06:59
Intake Total 600 / 600 300 / 300
Output Total 10 / 10 200 / 200
Balance 590 / 590 100 / 100
Physical Exam
-
General: No Apparent Distress
HEENT: Normocephalic
Respiratory: Negative Wheezes
Cardiac: Regular Rhythm
GI: Nontender and Distended
Genito-urinary: No Costovertebral Tender
Neuro: AO x 3
Hematologic / Lymphatic: No Lymphadenopathy
Psych: Calm
Data Reviewed
-
Total Time Spent with Patient (in minutes): 42
Labs: Labs Reviewed by me
--- NOTE | 2024-03-19 13:44 | CON.GI ---
Consultation
-
Date/Time Consultation Requested: 03/19/2024, 12:50 pm
Date/Time Consultation Performed: 03/19/2024, 2:30pm
Requesting Provider: Dr. Wynn
Performing Provider: Dr. Suazo
Reason for Consultation: constipation, abnormal X-ray
Medical History
Chief Complaint / HPI
Chief Complaint: back pain
History of Present Illness:
77 yo M pmh metastatic renal cancer presenting with back pain. There was concerned about thoracic cord compression and neurosurgery has evaluated him and recommended no surgery at this time. He is recommended for outpatient radiation oncology for
metastases of the level of the C3. He is on narcotics for pain. His last bowel movement was 912 which was formed, moderate. There was some concern he was constipated. He has gotten MiraLAX, senna, magnesium citrate, lactulose without success.
They are also trying a enema and suppository today - he had milk of molasses enema with moderate BM per RN, small BM earlier. He underwent an x-ray which showed findings suspicion for bowel obstruction.
Had nausea/vomiting this AM with brown material. Also with abdominal distension although pt feels a little improved from distension after milk of molasses enema. Also c/o hiccups.
Per patient has constipation 1-2 times a month but nothing like this current episode. Has been constipated since admission. Per patient not on narcotics at home.
Past Medical History
Past Medical History: Asthma, HTN and Other ( right cell renal carcinoma via biopsy 03/01/2024 with new recent mets via PET scan, A-fib/atrial flutter, history of cardiomyopathy 2019 with EF of 25% required LifeVest x 1 month-resolved,
obstructive sleep apnea)
Past Surgical History: Other (Retina repair, Tonsillectomy, A flutter ablation 2019, Cataract extraction, Detached retina, repair left eye)
Social History
Tobacco: Non-Smoker
Alcohol: Occasional
Drug: None
Family History
Family History: Reviewed & Not Pertinent
Allergies / Home Medications
Allergy/AdvReac Type Severity Reaction Status Date / Time
Sulfa (Sulfonamide Allergy Unknown Verified 03/16/24 13:49
Antibiotics)
�Medication �Instructions �Recorded
furosemide 40 mg tablet 40 mg PO Q48H Fluid 01/21/20
Retention/Swelling
metoprolol succinate 50 mg 50 mg PO QPM Heart Disease/BP 01/21/20
tablet,extended release 24 hr
tamsulosin 0.4 mg capsule 0.4 mg PO HS Urinary Issue 02/16/24
acetaminophen 500 mg tablet 1,000 mg PO Q6HPRN PRN mild pain 03/16/24
(Tylenol Extra Strength)
apixaban 5 mg tablet (Eliquis) 5 mg PO BID Blood Clot 03/16/24
Prevention/Tx
fluticasone fur. 100 mcg-umeclid 1 inh inhalation R DAILY 03/16/24
62.5 mcg-vilant 25 mcg Lung/Breathing Issues
inhalat.powder (Trelegy Ellipta)
potassium chloride 10 mEq 10 meq PO DAILY Electrolyte 03/16/24
tablet,extended release(part/cryst) Repletion
sacubitril 24 mg-valsartan 26 mg 1 tab PO BID heart failure 03/16/24
tablet (Entresto)
Review of Systems
-
All other systems: A 12 pt ROS was Negative except as stated above in HPI
Vital Signs
Temp Pulse Resp BP Pulse Ox
97.6 F 87 16 129/80 94
03/19/24 07:35 03/19/24 07:48 03/19/24 07:48 03/19/24 07:35 03/19/24 07:48
Physical Exam
Exam
General: Well Developed
HEENT: Normocephalic
Respiratory: Clear
Cardiac: S1/S2
GI: Non Tender, Distended and Other (high pitched bowel sounds)
Musculoskeletal: No Clubbing
Skin: Warm
Neuro: AO x 3
Results
WBC 17.1 10^3/uL (4.8-10.8) H 03/19/24 06:25
Hgb 10.3 g/dL (13.0-18.0) L 03/19/24 06:25
Hct 32.8 % (39.0-52.0) L 03/19/24 06:25
MCV 82.6 fL (80.0-94.0) 03/19/24 06:25
Plt Count 457 10^3/uL (130-400) H D 03/19/24 06:25
Absolute Neuts (auto) 7.6 10^3/uL (1.4-6.5) H 03/17/24 08:00
Sodium 135 mmol/L (135-145) 03/19/24 06:25
Potassium 4.9 mmol/L (3.5-5.1) 03/19/24 06:25
Chloride 90 mmol/L (98-107) L 03/19/24 06:25
Carbon Dioxide 28 mmol/L (22-30) 03/19/24 06:25
BUN 24 mg/dl (9-20) H 03/19/24 06:25
Creatinine 1.4 mg/dL (0.7-1.3) H 03/19/24 06:25
Calcium 11.2 mg/dl (8.4-10.2) H 03/19/24 06:25
Total Bilirubin 0.5 mg/dl (0.2-1.3) 03/17/24 08:00
AST 20 U/L (17-59) 03/17/24 08:00
ALT 19 U/L (0-50) 03/17/24 08:00
Alkaline Phosphatase 103 U/L (38-126) 03/17/24 08:00
Diagnostic Image Results:
Prior GI Procedures:
EGD:
Colonoscopy:
Assessment / Plan
-
68 yo M pmh met renal cancer here with back pain found to be constipation on narcotics with n/v, abdominal distension.
X-ray with concern of bowel obstruction.
I reviewed his Xray images personally myself- his bowel loops do look significantly dilated; exam significant for high pitched bowel sounds. This with the constipation, nausea/vomiting with brown material, abd distension I do think we should get a
CT to evaluate (GFR 63) to ensure no obstruction - if no obstruction or pseudo-obstruction may benefit from Relistor with narcotics.
I d/w hospitalist - of note, on d/w hospitalist I did ask if palliative care was discussed and family declined at this time.
I also d/w RN at bedside.
Data Reviewed
-
Radiology: Image Personally Visualized and interpreted
-
-
Thank you for consultation and allowing me to participate in the patient's care. Please call the psychologist industrial organizational GI physician during the after hours with any questions or concerns.
[2024-03-19] MEDS: ENTRESTO 24 MG/26 MG PO (14:40)
[2024-03-19] MEDS: ELIQUIS PO (14:40)
[2024-03-19] MEDS: DUPHALAC/CHRONULAC PO (14:40)
[2024-03-19] MEDS: KCL PO (14:41)
[2024-03-19] MEDS: MIRALAX PO (14:42)
[2024-03-19] MEDS: SENOKOT-S PO (14:42)
[2024-03-19] MEDS: OMNIPAQUE 50 ML PO (14:51)
[2024-03-19 15:16] VITALS: BP 108/76
[2024-03-19] MEDS: TOPROL XL PO (18:06)
[2024-03-19] MEDS: ELIQUIS 5 MG PO (20:24)
[2024-03-19] MEDS: ENTRESTO 24 MG/26 MG 1 TAB PO (20:24)
[2024-03-19] MEDS: SENOKOT-S 1 TABLET PO (20:25)
[2024-03-19] MEDS: FLOMAX 0.4 MG PO (21:55)
[2024-03-19 23:06] VITALS: BP 123/80
[2024-03-20] MEDS: LR 1000 IV ×2 (04:27→16:27)
[2024-03-20 06:00] VITALS: BMI 32.6
[2024-03-20 06:49] LABS: Hematocrit 31.9 % (39.0-52.0); Hemoglobin 9.8 g/dL (13.0-18.0); Mean Corp Hgb Conc. 30.7 g/dL (33.0-37.0); Mean Corpuscular Hgb 25.8 pg (27.0-31.0); Mean Corpuscular Volume 83.9 fL (80.0-94.0); Platelet Count 497 10^3/uL (130-400); Red Cell Dist. Width 17.5 % (11.5-14.5); White Blood Cell Count 17.7 10^3/uL (4.8-10.8)
[2024-03-20 07:19] VITALS: BP 105/64
[2024-03-20 07:27] LABS: Blood Urea Nitrogen 40 mg/dl (9-20); Calcium 11.1 mg/dl (8.4-10.2); Carbon Dioxide 26 mmol/L (22-30); Chloride 91 mmol/L (98-107); Estimated Creatinine Clearance 55 ml/min; Glucose 154 mg/dl (70-99); Potassium 4.7 mmol/L (3.5-5.1); Sodium 135 mmol/L (135-145); eGFR 46.06
[2024-03-20] MEDS: NON-FORMULARY ITEM 1 UNIT INH (08:01)
[2024-03-20] MEDS: LASIX PO ×2 (08:35→09:16)
[2024-03-20] MEDS: TUMS EX (EXTRA STRENGTH) CHEWABLE TABLET 600 MG PO (08:35)
[2024-03-20] MEDS: MIRALAX 17 GRAMS PO (08:35)
[2024-03-20] MEDS: SENOKOT-S 1 TABLET PO (08:35)
[2024-03-20] MEDS: ENTRESTO 24 MG/26 MG 1 TAB PO (08:35)
[2024-03-20] MEDS: KCL 10 MEQ PO (08:36)
[2024-03-20] MEDS: ELIQUIS 5 MG PO (08:36)
--- NOTE | 2024-03-20 09:18 | PTCARENOTE ---
pt to have ngt placed. pt updated on new order and reason for ngt. pt's at bedside also updated on plan
--- NOTE | 2024-03-20 10:15 | W.PN.HOSP.TC ---
Today's Communication/Plan
-
hold PO meds - start IV Lopressor, IV heparin drip
DC opiates, use IV Tylenol, Lidocaine patches
NGT decompression and follow GI recs
PT/OT/OOBTC/increae mobility
Assessment / Plan
Assessment / Plan
PET scan
1. Large focus of moderately intense FDG avid uptake in the right kidney corresponding with the patient's known primary malignancy.
2. FDG uptake involving numerous bilateral pulmonary nodules, subcarinal mediastinum, right hilum, right adrenal gland and left adrenal gland, as noted below, suspicious for FDG avid malignancy.
3. Several osseous foci of FDG uptake suspicious for malignancy, as detailed below. Of note, one lesion is seen most likely with epicenter involving a lucent lesion in the left mandible, difficult to determine anatomically
with this imaging modality. Suggest CT Facial Bone for more complete evaluation.
Lesion also suspected along the left side of the cervical spine possibly involving the left side of the C3 vertebral level for which MRI is suggested for more complete evaluation.
4. Small focus of minimal/mild FDG uptake involving an approximate 0.9 cm superficial midline soft tissue nodule along the posterior abdominal wall.
This may represent inflammatory activity are associated with soft tissue lesion such as a sebaceous cyst. A metastatic/malignant focus is also possible.
5. Prominent conglomerate moderately intense soft tissue FDG uptake seen within soft tissue density anterior to the left scapula which at least must be deemed suspicious for malignancy.
C-MRI: There are bilateral pulmonary nodules within the visualized upper lungs, compatible with pulmonary metastatic disease. There is a focal enhancing metastatic lesion within the left superior aspect of the C3 vertebral body. This extends into
the adjacent paraspinal soft tissues left anterolaterally. Compression of the medial margin of the left vertebral artery with no evidence for encasing or luminal narrowing. There is a enhancing metastatic lesion within the right posterior paraspinal
musculature at the C3 level. Changes of degenerative disc disease. At C3-4, there is cord compression and mild central canal stenosis. No convincing MR evidence for myelopathic signal. See above narrative for detailed findings at each level, with
multilevel foraminal narrowing.
T-MRI: No MR evidence of osseous metastatic disease. No intrinsic thoracic cord signal alteration or abnormal enhancement. Multilevel disc protrusions are present, as described. Most pronounced at T6-7, with secondary advanced thoracic cord
compression. No associated abnormal cord signal alteration. Moderate disc protrusion at T7-8 with moderate cord compression. Please refer to above discussion for specific and additional details.
Assessment:
upper thoracic back pain, acute
ambulatory dysfunction
- PT/OT evals: SNF recommended
- s/p MRI - studies summarized above
- Neurosurgery consulted; no surgical intervention indicated
- continue Tylenol (may need IV while with NGT), also Lidocaine patches
- hold off opiates with active ileus
Ileus/Constipation
- CT: Moderate distention of the distal esophagus and stomach. Moderate to severe distention of proximal small bowel loops. Collapsed ileal small bowel loops in the right lower quadrant. Severe distention of the cecum with fluid and mild distention
of the transverse colon. Mostly collapsed distal colon containing moderate diverticulosis. The pattern of bowel dilatation is most suggestive of a SEVERE ADYNAMIC ILEUS. A small bowel obstruction secondary to an adhesive band is considered less
likely given colonic distention and the absence of peritoneal fluid.
- s/p NGT placement 03/20 for decompression
- stop opiates
- encourage more mobility
- GI consulting
Metastatic poorly differentiated RCC with osseous mets, lung field meds, L mandible meds
- PET and CT reviewed with family
- OP follow up Oncology for definitive treatment discussions. May also benefit from Rad Onc consultation.
RERE
- in setting of ileus
- continue IVF
- hold nephrotoxins
- bladder scans
Left jaw pain consistent with osseous mets seen on CT
- s/p ER aspiration attempt with bloody drainage
Chronic anemia
Iron deficiency anemia
- Hb 9.8
A. Fib
A. Flutter
- hold Eliquis/Metoprolol
- IV heparin started - requires intensive monitoring
- IV prn Lopressor - tele added
Essential HTN
- continue BB
- hold Entresto/Lasix with RERE
Chronic peripheral edema
- I/O, daily weights
- Apply Tubigrip's
- hold Lasix 40 mg every 48 H with hold parameters for BP
- watch volume status
History of cardiomyopathy 2019 with EF of 25% required LifeVest x 1 month�resolved
- updated Echo 07/2023: normal EF
Asthma-no acute exacerbation
- continue Trelegy
Obstructive sleep apnea
- on CPAP
Obesity due to excess calorie consumption
- continue ensure supplements
DVT ppx: Lovenox
Code: DNR
Anticipated Discharge: > 48 hours
Subjective/Interval History
-
Date of Service: March 20, [address], NGT placed this AM
pain decently controlled off Fentanyl patch
Objective Data
-
Labs:
Laboratory Results
03/20/24
06:24
WBC 17.7 H
Hgb 9.8 L
Hct 31.9 L
Plt Count 497 H
Sodium 135
Potassium 4.7
Chloride 91 L
Carbon Dioxide 26
BUN 40 H
Creatinine 1.6 H
Glucose 154 H
Calcium 11.1 H
Vital Signs:
Vital Signs
Temp Pulse Resp BP Pulse Ox
97.5 F 88 20 105/64 95
03/20/24 07:19 03/20/24 08:06 03/20/24 08:06 03/20/24 07:19 03/20/24 08:06
I&O
03/19/24 03/20/24 03/21/24
06:59 06:59 06:59
Intake Total 300 / 300 480 / 480
Output Total 200 / 200 1300 / 1300
Balance 100 / 100 -820 / -820
Physical Exam
-
General: No Apparent Distress
HEENT: Normocephalic, Atraumatic and Other (+NGT)
Cardiac: Regular Rhythm and S1/S2
GI: Nontender and Distended
Genito-urinary: No Costovertebral Tender
Neuro: AO x 3
Psych: Calm
Data Reviewed
-
Total Time Spent with Patient (in minutes): 52
Labs: Labs Reviewed by me
--- NOTE | 2024-03-20 10:29 | PTCARENOTE ---
Addendum entered by Viktoriya Lima RN 03/20/24 10:54:
Heparin drip to be started as Eliquis is on hold. Medications were changed to IV where appropriate. Pt to be placed on telemetry. pt and updated on all orders.
Original Note:
RN went to remove pt's duragesic patch and it was not located. Pt states it had come off some time on previous shift and must have been takien away with the sheets. States previous RN was aware. Fentanyl patch to be d/c'd by Dr Martinez and will be
changed to lidocaine patch. NGT was placed without difficulty. draining blackish/brown liquid. pt and updated on new orders
[2024-03-20] MEDS: DURAGESIC 25 MCG/HR PATCH TRANSDERM (10:35)
[2024-03-20 11:13] LABS: APTT 36.9 Sec (23.4-35.0)
[2024-03-20 11:15] VITALS: BP 94/61
[2024-03-20] MEDS: OFIRMEV 100 IV ×3 (11:34→21:35)
[2024-03-20] MEDS: HEPARIN 25000 UNITS/250 ML IV (12:20)
--- NOTE | 2024-03-20 13:00 | W.PN.GI.CBS2 ---
Today's Communication / Plan
-
oob/ambulate, ngt, bowel rest
Assessment / Plan
-
68 yo M pmh met renal cancer here with back pain found to be constipation on narcotics with n/v, abdominal distension found to have ileus on CT.
Recommendations:
- NGT intermittent suction
- Bowel rest
- OOB/ambulate
- minimize narcotics
D/w hospitalist
Subjective
Subjective
Date of Service: March 20, 2024
distension better since placement of NGT
blackish material draining
Objective
Data Reviewed
Laboratory Data:
Laboratory Results
03/20/24 06:24
03/20/24 06:24
Laboratory Results
APTT 36.9 Sec (23.4-35.0) H 03/20/24 10:42
Total Bilirubin 0.5 mg/dl (0.2-1.3) 03/17/24 08:00
AST 20 U/L (17-59) 03/17/24 08:00
ALT 19 U/L (0-50) 03/17/24 08:00
Alkaline Phosphatase 103 U/L (38-126) 03/17/24 08:00
Vital Signs and I&O:
Vital Signs
Temp Pulse Resp BP Pulse Ox
98.1 F 103 12 94/61 94
03/20/24 11:15 03/20/24 11:15 03/20/24 11:15 03/20/24 11:15 03/20/24 11:15
I&O
03/19/24 03/20/24 03/21/24
06:59 06:59 06:59
Intake Total 300 / 300 480 / 480
Output Total 200 / 200 1300 / 1300
Balance 100 / 100 -820 / -820
Physical Exam
Physical Exam
GI: Distended, Non Tender and Other (high pitched BS less than yesterday)
[2024-03-20 15:20] VITALS: BP 106/64
[2024-03-20] MEDS: REGLAN 5 MG IV (15:36)
--- NOTE | 2024-03-20 16:41 | PTCARENOTE ---
Addendum entered by Viktoriya Lima RN 03/20/24 18:50:
dr martinez aware of hgb of 8.4 at 630p. was 9.8 this morning. stated will recheck in the am as long as pt is hemodynamically stable
Addendum entered by Viktoriya Lima RN 03/20/24 17:10:
Pharmacy placed the heparin drip on hold
Original Note:
at 4pm Dr Martinez and Dr Suazo from GI were made awware that pt's ngt drainage is now coffee ground in color. Dr Martinez stated to hold the heparin. Dr Suazo will order a PPI. pt and updated on new orders.
--- NOTE | 2024-03-20 17:48 | W.PN.UPDATE ---
Update Note
Progress Note Update
Got a call from RN blood in NGT coffee/ground
I ordered a repeat Hb and PPI IV BID
Recommend to move NGT a little as could be suctioning the stomach wall directly
On Low intermittent suction
She also reached out to hospitalist who recommended holding the heparin gtt
[2024-03-20 18:31] LABS: Hemoglobin 8.4 g/dL (13.0-18.0)
[2024-03-20 19:25] VITALS: BP 101/69
[2024-03-20] MEDS: PROTONIX IV 40 MG IV (20:03)
[2024-03-20] MEDS: NSS (PRESERVATIVE FREE) 10 ML IV (20:04)
[2024-03-20 23:00] VITALS: BP 110/60
[2024-03-20] MEDS: FLOMAX PO (23:12)
[2024-03-21 04:00] VITALS: BP 121/77
[2024-03-21] MEDS: LR 1000 IV (04:25)
[2024-03-21] MEDS: OFIRMEV 100 IV ×4 (04:26→22:59)
[2024-03-21 06:00] VITALS: BMI 32.5
[2024-03-21 07:01] LABS: Hematocrit 28.4 % (39.0-52.0); Hemoglobin 8.7 g/dL (13.0-18.0); Mean Corp Hgb Conc. 30.6 g/dL (33.0-37.0); Mean Corpuscular Volume 81.6 fL (80.0-94.0); Mean Platelet Volume 9.7 fL (7.4-10.4); Platelet Count 410 10^3/uL (130-400); Red Blood Cell Count 3.48 10^6/uL (4.70-6.10); Red Cell Dist. Width 17.7 % (11.5-14.5); White Blood Cell Count 12.7 10^3/uL (4.8-10.8)
[2024-03-21] MEDS: NON-FORMULARY ITEM 1 UNIT INH (07:24)
[2024-03-21 07:33] LABS: Blood Urea Nitrogen 40 mg/dl (9-20); Calcium 10.3 mg/dl (8.4-10.2); Carbon Dioxide 31 mmol/L (22-30); Chloride 95 mmol/L (98-107); Estimated Creatinine Clearance 63 ml/min; Glucose 98 mg/dl (70-99); Potassium 4.3 mmol/L (3.5-5.1); Sodium 137 mmol/L (135-145); eGFR 54.07
[2024-03-21 08:10] VITALS: BP 99/63
[2024-03-21] MEDS: NSS (PRESERVATIVE FREE) 10 ML IV ×2 (08:23→19:31)
[2024-03-21] MEDS: PROTONIX IV 40 MG IV ×2 (08:23→19:31)
[2024-03-21] MEDS: LIDOCAINE 4% PATCH 3 PATCH TOPICAL (08:23)
[2024-03-21] MEDS: NSS 1000 IV (09:04)
--- NOTE | 2024-03-21 11:01 | W.PN.GI.CBS2 ---
Today's Communication / Plan
-
monitor output for blood/amount, oob/ambulate
Assessment / Plan
-
68 yo M pmh met renal cancer here with back pain found to be constipation on narcotics with n/v, abdominal distension found to have ileus on CT.
Coffee ground/slight drop in Hb likely due to suction trauma in setting of heparin gtt.
Recommendations:
- NGT intermittent suction - monitor output perhaps we can remove it tomorrow
- Bowel rest
- OOB/ambulate - d/w RN will see if PT can walk him around
- minimize narcotics - lidocaine patch is helping
- IV protonix BID
- heparin on hold per hospitalist
- Trend Hb
Subjective
Subjective
Date of Service: March 21, 2024
Had medium soft BM
Pt feels belly softer less distended
NGT material triage specialist in color today
Objective
Data Reviewed
Laboratory Data:
Laboratory Results
03/21/24 06:26
03/21/24 06:26
Laboratory Results
APTT Cancelled 03/20/24 18:30
Total Bilirubin 0.5 mg/dl (0.2-1.3) 03/17/24 08:00
AST 20 U/L (17-59) 03/17/24 08:00
ALT 19 U/L (0-50) 03/17/24 08:00
Alkaline Phosphatase 103 U/L (38-126) 03/17/24 08:00
Vital Signs and I&O:
Vital Signs
Temp Pulse Resp BP Pulse Ox
98.0 F 89 16 99/63 93
03/21/24 08:10 03/21/24 08:10 03/21/24 08:10 03/21/24 08:10 03/21/24 08:36
I&O
03/20/24 03/21/24 03/22/24
06:59 06:59 06:59
Intake Total 480 / 480 1160 / 1160
Output Total 1300 / 1300 3000 / 3000
Balance -820 / -820 -1840 / -1840
Physical Exam
Physical Exam
HEENT: Anicteric
Cardiology: Normal Sinus Rhythm
Pulmonary: Clear
GI: Distended and Non Tender
Neuro: Non Focal
[2024-03-21 11:44] VITALS: BP 91/61
--- NOTE | 2024-03-21 13:37 | W.PN.HOSP.TC ---
Today's Communication/Plan
-
continue IV heparin hold but if NGT output less dark and Hb stable in AM, resume it
anemia labs
continue NGT decompression per GI
non-opiate pain control continues
Assessment / Plan
Assessment / Plan
PET scan
1. Large focus of moderately intense FDG avid uptake in the right kidney corresponding with the patient's known primary malignancy.
2. FDG uptake involving numerous bilateral pulmonary nodules, subcarinal mediastinum, right hilum, right adrenal gland and left adrenal gland, as noted below, suspicious for FDG avid malignancy.
3. Several osseous foci of FDG uptake suspicious for malignancy, as detailed below. Of note, one lesion is seen most likely with epicenter involving a lucent lesion in the left mandible, difficult to determine anatomically
with this imaging modality. Suggest CT Facial Bone for more complete evaluation.
Lesion also suspected along the left side of the cervical spine possibly involving the left side of the C3 vertebral level for which MRI is suggested for more complete evaluation.
4. Small focus of minimal/mild FDG uptake involving an approximate 0.9 cm superficial midline soft tissue nodule along the posterior abdominal wall.
This may represent inflammatory activity are associated with soft tissue lesion such as a sebaceous cyst. A metastatic/malignant focus is also possible.
5. Prominent conglomerate moderately intense soft tissue FDG uptake seen within soft tissue density anterior to the left scapula which at least must be deemed suspicious for malignancy.
C-MRI: There are bilateral pulmonary nodules within the visualized upper lungs, compatible with pulmonary metastatic disease. There is a focal enhancing metastatic lesion within the left superior aspect of the C3 vertebral body. This extends into
the adjacent paraspinal soft tissues left anterolaterally. Compression of the medial margin of the left vertebral artery with no evidence for encasing or luminal narrowing. There is a enhancing metastatic lesion within the right posterior paraspinal
musculature at the C3 level. Changes of degenerative disc disease. At C3-4, there is cord compression and mild central canal stenosis. No convincing MR evidence for myelopathic signal. See above narrative for detailed findings at each level, with
multilevel foraminal narrowing.
T-MRI: No MR evidence of osseous metastatic disease. No intrinsic thoracic cord signal alteration or abnormal enhancement. Multilevel disc protrusions are present, as described. Most pronounced at T6-7, with secondary advanced thoracic cord
compression. No associated abnormal cord signal alteration. Moderate disc protrusion at T7-8 with moderate cord compression. Please refer to above discussion for specific and additional details.
Assessment:
upper thoracic back pain, acute
ambulatory dysfunction
- PT/OT evals: SNF recommended
- s/p MRI - studies summarized above
- Neurosurgery consulted; no surgical intervention indicated
- continue Tylenol (may need IV while with NGT), also Lidocaine patches
- hold off opiates with active ileus
Ileus/Constipation
- CT: Moderate distention of the distal esophagus and stomach. Moderate to severe distention of proximal small bowel loops. Collapsed ileal small bowel loops in the right lower quadrant. Severe distention of the cecum with fluid and mild distention
of the transverse colon. Mostly collapsed distal colon containing moderate diverticulosis. The pattern of bowel dilatation is most suggestive of a SEVERE ADYNAMIC ILEUS. A small bowel obstruction secondary to an adhesive band is considered less
likely given colonic distention and the absence of peritoneal fluid.
- s/p NGT placement 03/20 for decompression; continue
- stop opiates
- encourage more mobility, PT/OT
- GI consulting
Metastatic poorly differentiated RCC with osseous mets, lung field meds, L mandible meds
- PET and CT reviewed with family
- OP follow up Oncology for definitive treatment discussions. May also benefit from Rad Onc consultation.
RERE
- in setting of ileus
- continue IVF
- hold nephrotoxins
- bladder scans
Left jaw pain consistent with osseous mets seen on CT
- s/p ER aspiration attempt with bloody drainage
Chronic anemia
Iron deficiency anemia
- Hb 8.7 currently
- update anemia labs
A. Fib
A. Flutter
- hold Eliquis/Metoprolol
- IV heparin started 03/20 but held later that evening due to concern for coffee grounds in NGT. Hb stable. If stable in AM, can resume.
- IV prn Lopressor - tele added
Essential HTN
- continue BB
- hold Entresto/Lasix with RERE
Chronic peripheral edema
- I/O, daily weights
- Apply Tubigrip's
- hold Lasix 40 mg every 48 H with hold parameters for BP
- watch volume status
History of cardiomyopathy 2019 with EF of 25% required LifeVest x 1 month�resolved
- updated Echo 07/2023: normal EF
Asthma-no acute exacerbation
- continue Trelegy
Obstructive sleep apnea
- on CPAP
Obesity due to excess calorie consumption
- continue ensure supplements
DVT ppx: SCDs until oral anticoagulation resumed, tentatively tomorrow (see above)
Code: DNR
Anticipated Discharge: > 48 hours
Subjective/Interval History
-
Date of Service: March 21, 2024
denies any new complaints
had a moderate BM today
NG output more green than dark/coffee grounds
Objective Data
-
Labs:
Laboratory Results
03/21/24
06:26
WBC 12.7 H
Hgb 8.7 L
Hct 28.4 L
Plt Count 410 H
Sodium 137
Potassium 4.3
Chloride 95 L
Carbon Dioxide 31 H
BUN 40 H
Creatinine 1.4 H
Glucose 98
Calcium 10.3 H
Vital Signs:
Vital Signs
Temp Pulse Resp BP Pulse Ox
98.0 F 106 20 91/61 97
03/21/24 11:44 03/21/24 11:44 03/21/24 11:44 03/21/24 11:44 03/21/24 11:44
I&O
03/20/24 03/21/24 03/22/24
06:59 06:59 06:59
Intake Total 480 / 480 1160 / 1160
Output Total 1300 / 1300 3000 / 3000
Balance -820 / -820 -1840 / -1840
Physical Exam
-
General: No Apparent Distress
HEENT: Normocephalic
Respiratory: Negative Wheezes
Cardiac: Regular Rhythm and S1/S2
GI: Soft
Genito-urinary: No Costovertebral Tender
Neuro: AO x 3
Psych: Calm
Data Reviewed
-
Total Time Spent with Patient (in minutes): 44
Labs: Labs Reviewed by me
[2024-03-21] MEDS: REGLAN 5 MG IV ×2 (15:27→22:59)
[2024-03-21 15:48] VITALS: BP 115/87
[2024-03-21 19:31] VITALS: BP 111/72
[2024-03-21] MEDS: FLOMAX PO (22:10)
[2024-03-21 23:18] VITALS: BP 118/76
[2024-03-22] MEDS: NSS 1000 IV ×2 (02:15→17:10)
[2024-03-22 03:22] VITALS: BP 107/68
[2024-03-22] MEDS: OFIRMEV 100 IV (04:08)
[2024-03-22 06:00] VITALS: BMI 32.5
[2024-03-22] MEDS: NON-FORMULARY ITEM 1 UNIT INH (07:11)
[2024-03-22 07:31] VITALS: BP 112/71
[2024-03-22 07:41] LABS: Hematocrit 28.5 % (39.0-52.0); Hemoglobin 8.7 g/dL (13.0-18.0); Mean Corp Hgb Conc. 30.5 g/dL (33.0-37.0); Mean Corpuscular Hgb 25.3 pg (27.0-31.0); Mean Corpuscular Volume 82.8 fL (80.0-94.0); Mean Platelet Volume 9.8 fL (7.4-10.4); Platelet Count 391 10^3/uL (130-400); Red Blood Cell Count 3.44 10^6/uL (4.70-6.10); Red Cell Dist. Width 17.6 % (11.5-14.5); White Blood Cell Count 13.6 10^3/uL (4.8-10.8)
[2024-03-22] MEDS: NSS (PRESERVATIVE FREE) 10 ML IV ×2 (07:46→20:24)
[2024-03-22] MEDS: PROTONIX IV 40 MG IV ×2 (07:47→20:24)
[2024-03-22] MEDS: LIDOCAINE 4% PATCH 3 PATCH TOPICAL (07:52)
[2024-03-22 08:21] LABS: Blood Urea Nitrogen 33 mg/dl (9-20); Calcium 9.7 mg/dl (8.4-10.2); Carbon Dioxide 28 mmol/L (22-30); Chloride 99 mmol/L (98-107); Estimated Creatinine Clearance 62 ml/min; Glucose 83 mg/dl (70-99); Iron 28 ug/dl (49-181); Potassium 4.1 mmol/L (3.5-5.1); Sodium 139 mmol/L (135-145); eGFR 54.07
[2024-03-22 08:33] LABS: Percent Saturation 14 % (20-50); Total Iron Binding Capacity 191 ug/dl (261-462)
[2024-03-22 09:19] LABS: Folate 4.1 ng/ml (2.76-20); Vitamin B12 765 pg/ml (239-931)
--- NOTE | 2024-03-22 09:50 | W.PN.HOSP.TC ---
Addendum entered and electronically signed by Jazzmine Kaye MD 03/22/24 13:08:
# SIRS due to ileus with associated organ dysfunction/RERE
Original Note:
Today's Communication/Plan
-
see A/P
Assessment / Plan
Assessment / Plan
PET scan
1. Large focus of moderately intense FDG avid uptake in the right kidney corresponding with the patient's known primary malignancy.
2. FDG uptake involving numerous bilateral pulmonary nodules, subcarinal mediastinum, right hilum, right adrenal gland and left adrenal gland, as noted below, suspicious for FDG avid malignancy.
3. Several osseous foci of FDG uptake suspicious for malignancy, as detailed below. Of note, one lesion is seen most likely with epicenter involving a lucent lesion in the left mandible, difficult to determine anatomically
with this imaging modality. Suggest CT Facial Bone for more complete evaluation.
Lesion also suspected along the left side of the cervical spine possibly involving the left side of the C3 vertebral level for which MRI is suggested for more complete evaluation.
4. Small focus of minimal/mild FDG uptake involving an approximate 0.9 cm superficial midline soft tissue nodule along the posterior abdominal wall.
This may represent inflammatory activity are associated with soft tissue lesion such as a sebaceous cyst. A metastatic/malignant focus is also possible.
5. Prominent conglomerate moderately intense soft tissue FDG uptake seen within soft tissue density anterior to the left scapula which at least must be deemed suspicious for malignancy.
C-MRI: There are bilateral pulmonary nodules within the visualized upper lungs, compatible with pulmonary metastatic disease. There is a focal enhancing metastatic lesion within the left superior aspect of the C3 vertebral body. This extends into
the adjacent paraspinal soft tissues left anterolaterally. Compression of the medial margin of the left vertebral artery with no evidence for encasing or luminal narrowing. There is a enhancing metastatic lesion within the right posterior paraspinal
musculature at the C3 level. Changes of degenerative disc disease. At C3-4, there is cord compression and mild central canal stenosis. No convincing MR evidence for myelopathic signal. See above narrative for detailed findings at each level, with
multilevel foraminal narrowing.
T-MRI: No MR evidence of osseous metastatic disease. No intrinsic thoracic cord signal alteration or abnormal enhancement. Multilevel disc protrusions are present, as described. Most pronounced at T6-7, with secondary advanced thoracic cord
compression. No associated abnormal cord signal alteration. Moderate disc protrusion at T7-8 with moderate cord compression. Please refer to above discussion for specific and additional details.
A/P:
# upper thoracic back pain, acute
# ambulatory dysfunction
s/p MRI - studies summarized above
Neurosurgery consulted; no surgical intervention indicated
continue Tylenol (may need IV while with NGT), also Lidocaine patches
hold off opiates with active ileus
PT/OT evals: SNF recommended
# Ileus/Constipation
CT: Moderate distention of the distal esophagus and stomach. Moderate to severe distention of proximal small bowel loops. Collapsed ileal small bowel loops in the right lower quadrant. Severe distention of the cecum with fluid and mild distention of
the transverse colon. Mostly collapsed distal colon containing moderate diverticulosis. The pattern of bowel dilatation is most suggestive of a SEVERE ADYNAMIC ILEUS. A small bowel obstruction secondary to an adhesive band is considered less likely
given colonic distention and the absence of peritoneal fluid.
s/p NGT placement 03/20 for decompression; continue intermittent suction
stopped opiates
encourage more mobility, PT/OT
IV Protonix BID
GI following
# Metastatic poorly differentiated RCC with osseous mets, lung field meds, L mandible meds
PET and CT reviewed with family
OP follow up Oncology for definitive treatment discussions. May also benefit from Rad Onc consultation.
# RERE, in setting of ileus
continue IVF
hold nephrotoxins
Cont bladder scans
SCr today at 1.4 from baseline 1.1
# Left jaw pain consistent with osseous mets seen on CT
s/p ER aspiration attempt with bloody drainage
# Chronic anemia
# Anemia of chronic disorder
Hb stable
# A. Fib/ A. Flutter
hold Eliquis/Metoprolol
IV heparin started 03/20 but held later that evening due to concern for coffee grounds in NGT.
Consider resuming AC when NGT removed
Cont to monitor Hb, stable.
IV prn Lopressor - tele added
# Essential HTN
continue BB
hold Entresto/Lasix with RERE
BP stable without meds
# Chronic peripheral edema
I/O, daily weights
Apply Tubigrip's
hold Lasix 40 mg every 48 H with hold parameters for BP
watch volume status
# History of cardiomyopathy 2019 with EF of 25% required LifeVest x 1 month� resolved
updated Echo 07/2023: normal EF
# Asthma-no acute exacerbation
continue Trelegy
# Obstructive sleep apnea
on CPAP
# Obesity due to excess calorie consumption
continue ensure supplements
DVT ppx: SCDs for now
Code: DNR
updated on the phone
Anticipated Discharge: > 48 hours
Subjective/Interval History
-
Date of Service: March 22, 2024
Objective Data
-
Labs:
Laboratory Results
03/22/24
06:46
WBC 13.6 H
Hgb 8.7 L
Hct 28.5 L
Plt Count 391
Sodium 139
Potassium 4.1
Chloride 99
Carbon Dioxide 28
BUN 33 H
Creatinine 1.4 H
Glucose 83
Calcium 9.7
Vital Signs:
Vital Signs
Temp Pulse Resp BP Pulse Ox
36.7 C 84 19 112/71 94
03/22/24 07:31 03/22/24 07:31 03/22/24 07:31 03/22/24 07:31 03/22/24 07:31
I&O
03/21/24 03/22/24 03/23/24
06:59 06:59 06:59
Intake Total 1160 / 1160 1040 / 1040
Output Total 3000 / 3000 1400 / 1400
Balance -1840 / -1840 -360 / -360
Review of Systems
-
All other systems: Reviewed and negative
Physical Exam
-
General: Well Developed, Well Nourished, No Apparent Distress and Conversant
HEENT: Normocephalic
Respiratory: Clear to Auscultation and Non Labored Respirations; Negative Accessory Resp Muscle Use
Cardiac: Regular Rhythm and S1/S2
GI: Soft and Nontender
Neuro: Awake and Alert
Psych: Calm and Intact Judgement/Insight
Data Reviewed
-
Labs: Labs Reviewed by me
--- NOTE | 2024-03-22 10:23 | PN.CDI ---
CDI
- -
CDI:
Physician Documentation Request
Admit Date: 03/17/24 08:23
Dear Doctor Mikki,
Clinical Indicators:
Patient admitted with upper thoracic back pain; PMH of metastatic poorly differentiated RCC with osseous mets.
03/20 PN, 'Ileus/Constipation...RERE- in setting of ileus'
WBC trend:
03/19/24 03/20/24
06:25 06:24
WBC 17.1 H 17.7 H
HR trend:
03/19/24
20:24 03/19/24
23:06 03/20/24
07:19
Pulse 115 112 101
03/20/24
11:15 03/20/24
15:20 03/20/24
19:25
Pulse 103 99 99
Please clarify which most accurately describes the patient:
SIRS due to ileus with associated organ dysfunction/RERE
SIRS due to ileus only
Other, please specify
SIRS criteria:
Fever > 100.4 degrees F or hypothermia < 96.8 degrees F
Leukocytosis - WBC > 12,000 or leukopenia, WBC < 4,000 or > 10% bands
Tachycardia - > 90 beats per minute
Tachypnea - RR > 20 breaths per minute or PaCO2 < 32 mmHg
Source: [employer] Manual 2013
Use of terms such as suspected, likely, concern for, or probable (associated with a specific diagnosis that is being evaluated, monitored, or treated as if it exists) are acceptable and can be coded in the inpatient setting, when documented at the
time of discharge.
Thank you,
Sivan Marcum RN BSN
CDI Specialist
available via tiger text
Please use your independent medical judgment in providing your response.
--- NOTE | 2024-03-22 10:56 | W.PN.GI.CBS2 ---
Today's Communication / Plan
-
monitor NGT output, oob/ambulate
Assessment / Plan
-
68 yo M pmh met renal cancer here with back pain found to be constipation on narcotics with n/v, abdominal distension found to have ileus on CT.
Coffee ground/slight drop in Hb likely due to suction trauma in setting of heparin gtt on 03/20.
Recommendations:
- NGT intermittent suction - monitor output perhaps we can remove it tomorrow
- Bowel rest
- OOB/ambulate - d/w RN will see if PT can walk him around
- minimize narcotics - lidocaine patch is helping
- IV protonix BID
- Trend Hb
Subjective
Subjective
Date of Service: March 22, 2024
significant NGT output overnight 900
Had BM yesterday about to have one today
Feels distension is better
Not having any liquids
Objective
Data Reviewed
Laboratory Data:
Laboratory Results
03/22/24 06:46
03/22/24 06:46
Laboratory Results
APTT Cancelled 03/20/24 18:30
Total Bilirubin 0.5 mg/dl (0.2-1.3) 03/17/24 08:00
AST 20 U/L (17-59) 03/17/24 08:00
ALT 19 U/L (0-50) 03/17/24 08:00
Alkaline Phosphatase 103 U/L (38-126) 03/17/24 08:00
Vital Signs and I&O:
Vital Signs
Temp Pulse Resp BP Pulse Ox
98.1 F 84 19 112/71 94
03/22/24 07:31 03/22/24 07:31 03/22/24 07:31 03/22/24 07:31 03/22/24 07:31
I&O
03/21/24 03/22/24 03/23/24
06:59 06:59 06:59
Intake Total 1160 / 1160 1040 / 1040
Output Total 3000 / 3000 1400 / 1400
Balance -1840 / -1840 -360 / -360
Physical Exam
Physical Exam
GI: Distended and Non Tender
[2024-03-22 11:12] VITALS: BP 117/71
[2024-03-22 15:32] VITALS: BP 117/60
[2024-03-22] MEDS: REGLAN 5 MG IV (17:11)
[2024-03-22] MEDS: FLOMAX PO (21:33)
[2024-03-22 23:28] VITALS: BP 118/73
[2024-03-23] MEDS: NON-FORMULARY ITEM 1 UNIT INH (07:28)
[2024-03-23 07:43] VITALS: BP 124/81
[2024-03-23 07:55] LABS: Hematocrit 27.7 % (39.0-52.0); Hemoglobin 8.4 g/dL (13.0-18.0); Mean Corp Hgb Conc. 30.3 g/dL (33.0-37.0); Mean Corpuscular Hgb 25.1 pg (27.0-31.0); Mean Corpuscular Volume 82.9 fL (80.0-94.0); Mean Platelet Volume 9.8 fL (7.4-10.4); Platelet Count 408 10^3/uL (130-400); Red Blood Cell Count 3.34 10^6/uL (4.70-6.10); Red Cell Dist. Width 17.8 % (11.5-14.5); White Blood Cell Count 14.4 10^3/uL (4.8-10.8)
[2024-03-23] MEDS: LIDOCAINE 4% PATCH 3 PATCH TOPICAL (08:18)
[2024-03-23] MEDS: NSS (PRESERVATIVE FREE) 10 ML IV ×2 (08:19→19:38)
[2024-03-23] MEDS: PROTONIX IV 40 MG IV ×2 (08:19→19:38)
[2024-03-23] MEDS: REGLAN 5 MG IV ×2 (08:20→19:55)
--- NOTE | 2024-03-23 08:24 | W.PN.HOSP.TC ---
Today's Communication/Plan
-
see A/P
Assessment / Plan
Assessment / Plan
PET scan
1. Large focus of moderately intense FDG avid uptake in the right kidney corresponding with the patient's known primary malignancy.
2. FDG uptake involving numerous bilateral pulmonary nodules, subcarinal mediastinum, right hilum, right adrenal gland and left adrenal gland, as noted below, suspicious for FDG avid malignancy.
3. Several osseous foci of FDG uptake suspicious for malignancy, as detailed below. Of note, one lesion is seen most likely with epicenter involving a lucent lesion in the left mandible, difficult to determine anatomically
with this imaging modality. Suggest CT Facial Bone for more complete evaluation.
Lesion also suspected along the left side of the cervical spine possibly involving the left side of the C3 vertebral level for which MRI is suggested for more complete evaluation.
4. Small focus of minimal/mild FDG uptake involving an approximate 0.9 cm superficial midline soft tissue nodule along the posterior abdominal wall.
This may represent inflammatory activity are associated with soft tissue lesion such as a sebaceous cyst. A metastatic/malignant focus is also possible.
5. Prominent conglomerate moderately intense soft tissue FDG uptake seen within soft tissue density anterior to the left scapula which at least must be deemed suspicious for malignancy.
C-MRI: There are bilateral pulmonary nodules within the visualized upper lungs, compatible with pulmonary metastatic disease. There is a focal enhancing metastatic lesion within the left superior aspect of the C3 vertebral body. This extends into
the adjacent paraspinal soft tissues left anterolaterally. Compression of the medial margin of the left vertebral artery with no evidence for encasing or luminal narrowing. There is a enhancing metastatic lesion within the right posterior paraspinal
musculature at the C3 level. Changes of degenerative disc disease. At C3-4, there is cord compression and mild central canal stenosis. No convincing MR evidence for myelopathic signal. See above narrative for detailed findings at each level, with
multilevel foraminal narrowing.
T-MRI: No MR evidence of osseous metastatic disease. No intrinsic thoracic cord signal alteration or abnormal enhancement. Multilevel disc protrusions are present, as described. Most pronounced at T6-7, with secondary advanced thoracic cord
compression. No associated abnormal cord signal alteration. Moderate disc protrusion at T7-8 with moderate cord compression. Please refer to above discussion for specific and additional details.
A/P:
# upper thoracic back pain, acute
# ambulatory dysfunction
s/p MRI - studies summarized above
Neurosurgery consulted; no surgical intervention indicated
continue Tylenol (may need IV while with NGT), also Lidocaine patches
hold off opiates with active ileus
PT/OT evals: SNF recommended
# Ileus/Constipation
CT: Moderate distention of the distal esophagus and stomach. Moderate to severe distention of proximal small bowel loops. Collapsed ileal small bowel loops in the right lower quadrant. Severe distention of the cecum with fluid and mild distention of
the transverse colon. Mostly collapsed distal colon containing moderate diverticulosis. The pattern of bowel dilatation is most suggestive of a SEVERE ADYNAMIC ILEUS. A small bowel obstruction secondary to an adhesive band is considered less likely
given colonic distention and the absence of peritoneal fluid.
s/p NGT placement 03/20 for decompression; continue intermittent suction
GI following to direct NGT
stopped opiates
encourage more mobility, PT/OT
IV Protonix BID
# Metastatic poorly differentiated RCC with osseous mets, lung field meds, L mandible meds
PET and CT reviewed with family
OP follow up Oncology for definitive treatment discussions. May also benefit from Rad Onc consultation.
# RERE, in setting of ileus
continue IVF
hold nephrotoxins
Cont bladder scans
SCr at 1.4 from baseline 1.1
# Left jaw pain consistent with osseous mets seen on CT
s/p ER aspiration attempt with bloody drainage
# Chronic anemia
# Anemia of chronic disorder
Hb stable
# A. Fib/ A. Flutter
hold Eliquis/Metoprolol
heparin drip started 03/20 but held later that evening due to concern for coffee grounds in NGT.
Consider resuming AC when NGT removed,
Start HSQ while off AC
Cont to monitor Hb, stable.
IV prn Lopressor - tele added
# Essential HTN
continue BB
hold Entresto/Lasix with RERE
BP stable without meds
# Chronic peripheral edema
I/O, daily weights
Apply Tubigrip's
hold BOARD FINISHER Lasix 40 mg every 48 H
watch volume status
# History of cardiomyopathy 2019 with EF of 25% required LifeVest x 1 month� resolved
updated Echo 07/2023: normal EF
# Asthma-no acute exacerbation
continue Trelegy
# Obstructive sleep apnea
on CPAP
# Obesity due to excess calorie consumption
continue ensure supplements
DVT ppx: HSQ while off AC
Code: DNR
DW RN
Anticipated Discharge: > 48 hours
Subjective/Interval History
-
Date of Service: March 23, 2024
Objective Data
-
Labs:
Laboratory Results
03/23/24
06:21
WBC 14.4 H
Hgb 8.4 L
Hct 27.7 L
Plt Count 408 H
Sodium Pending
Potassium Pending
Chloride Pending
Carbon Dioxide Pending
BUN Pending
Creatinine Pending
Glucose Pending
Calcium Pending
Vital Signs:
Vital Signs
Temp Pulse Resp BP Pulse Ox
36.9 C 88 20 124/81 93
03/23/24 07:43 03/23/24 07:43 03/23/24 07:43 03/23/24 07:43 03/23/24 07:43
I&O
03/22/24 03/23/24 03/24/24
06:59 06:59 06:59
Intake Total 1040 / 1040 840 / 840
Output Total 1400 / 1400 650 / 650
Balance -360 / -360 190 / 190
Review of Systems
-
All other systems: Reviewed and negative
Physical Exam
-
General: Well Developed, Well Nourished, No Apparent Distress, Comfortable and Conversant
HEENT: Normocephalic
Respiratory: Clear to Auscultation and Non Labored Respirations; Negative Accessory Resp Muscle Use
Cardiac: Regular Rhythm and S1/S2
GI: Soft, Nontender and Other (NGT)
Neuro: Awake and Alert
Psych: Calm and Intact Judgement/Insight
Data Reviewed
-
Labs: Labs Reviewed by me
[2024-03-23 08:27] LABS: Blood Urea Nitrogen 31 mg/dl (9-20); Calcium 9.3 mg/dl (8.4-10.2); Carbon Dioxide 23 mmol/L (22-30); Chloride 102 mmol/L (98-107); Estimated Creatinine Clearance 67 ml/min; Glucose 63 mg/dl (70-99); Magnesium 2.6 mg/dl (1.6-2.3); Potassium 3.9 mmol/L (3.5-5.1); Sodium 141 mmol/L (135-145)
--- NOTE | 2024-03-23 08:44 | W.PN.GI.CBS2 ---
Addendum entered and electronically signed by Kimberly Kearney DO 03/23/24 12:48:
Patient seen and examined independently of BENJAMIN. I agree with her note with my additions below
Harlye is a 68-year-old male with metastatic renal cancer with narcotic induced ileus presented with abdominal distention who is now improving. Less distention today passing flatus and had a few liquid bowel movements this morning. Has less NG tube
output. Complains of a very dry sore throat due to the NG tube. Denies any nausea or vomiting.
On exam he has significant hyperactive bowel sounds including some high-pitched tinkling likely from air-fluid levels and dilated bowel.
Since he is passing flatus and bowel movements highly unlikely from obstruction.
Will start Mestinon 60 mg 3 times daily, clamp tube for 1 hour during these administrations. The purpose is to increase peristalsis and resolve the ileus.
Avoid narcotics at all possible. Pain is well-controlled with the lidocaine patch.
Discussed with the patient, at the bedside, Dominique and Sil linares RN.
hgb stable.
Hoping for NGT d/c tomorrow.
Will subtract about 240oz of fluid that I allowed him to drink.
Continue BID protonix IV for now
ok to clamp tube to ambulate
Original Note:
Today's Communication / Plan
-
Continue NG tube to low intermittent suction.
Ambulate
Assessment / Plan
-
68 yo M pmh met renal cancer here with back pain found to be constipation on narcotics with n/v, abdominal distension found to have ileus on CT.
Coffee ground/slight drop in Hb likely due to suction trauma in setting of heparin gtt on 03/20. Hemoglobin remained stable. No signs of bleeding.
Recommendations:
- NGT intermittent suction -started to pass flatus this morning. Has had decreased in NG tube output.
- Bowel rest
-Discussed possibly clamping tube later today first to see how he tolerates.
- OOB/ambulate - d/w RN will see if PT can walk him around
- minimize narcotics - lidocaine patch is helping
- IV protonix BID
- Trend Hgb.
Subjective
Subjective
Date of Service: March 23, 2024
Patient started to pass flatus this a.m. around 530. 1 episode associated with's very small BM. Still with abdominal distention with high-pitched bowel sounds. NG tube in place with 650 cc bilious output last night and 250 cc this morning.
Hemoglobin stable 8.4 from 8.7, no signs of bleeding.
Objective
Data Reviewed
Laboratory Data:
Laboratory Results
03/23/24 06:21
03/23/24 06:21
Laboratory Results
APTT Cancelled 03/20/24 18:30
Magnesium 2.6 mg/dl (1.6-2.3) H 03/23/24 06:21
Total Bilirubin 0.5 mg/dl (0.2-1.3) 03/17/24 08:00
AST 20 U/L (17-59) 03/17/24 08:00
ALT 19 U/L (0-50) 03/17/24 08:00
Alkaline Phosphatase 103 U/L (38-126) 03/17/24 08:00
Vital Signs and I&O:
Vital Signs
Temp Pulse Resp BP Pulse Ox
98.5 F 88 20 124/81 93
03/23/24 07:43 03/23/24 07:43 03/23/24 07:43 03/23/24 07:43 03/23/24 07:43
I&O
03/22/24 03/23/24 03/24/24
06:59 06:59 06:59
Intake Total 1040 / 1040 840 / 840
Output Total 1400 / 1400 650 / 650
Balance -360 / -360 190 / 190
Physical Exam
Physical Exam
HEENT: Anicteric
Cardiology: Normal Sinus Rhythm
Pulmonary: Clear (Anterior)
GI: Soft, Distended, Non Tender and Other (Bowel sounds high-pitched with some tinkling throughout)
Neuro: Non Focal
[2024-03-23] MEDS: NSS 1000 IV ×2 (09:37→19:41)
--- NOTE | 2024-03-23 10:46 | CM ---
Patient seen bedside.
NGT to low suction, possible clamp later.
PT/OT recommending acute rehab.
Plan: hopefully rehab once medically stable.
--- NOTE | 2024-03-23 11:28 | W.PN.ONC ---
Today's Communication / Plan
-
Mgmt of NG tube per GI
Current pain mgmt is adequate
PT --> rehab
Outpatient rad onc f/u
Outpatient med onc f/u to discuss treatment options
Impression
Impression
77-year-old male with recent diagnosis of metastatic renal cell carcinoma to multiple sites, with progressive mid low back pain.
Ileus from opioids, now w/ NG tube
Plan
Plan
Mgmt of NG tube per GI
Current pain mgmt is adequate
PT --> rehab
Outpatient rad onc f/u
Outpatient med onc f/u to discuss treatment options
Subjective/Objective
Subjective/Objective
had diarrhea early this am, passing gas more recently
pain under very good control
Vital Signs:
Vital Signs
Temp Pulse Resp BP Pulse Ox
98.5 F 88 20 124/81 99
03/23/24 07:43 03/23/24 07:43 03/23/24 07:43 03/23/24 07:43 03/23/24 08:30
Lab Results:
Laboratory Data
WBC 14.4 10^3/uL (4.8-10.8) H 03/23/24 06:21
Hgb 8.4 g/dL (13.0-18.0) L 03/23/24 06:21
Plt Count 408 10^3/uL (130-400) H 03/23/24 06:21
APTT Cancelled 03/20/24 18:30
eGFR 59.10 03/23/24 06:21
[2024-03-23 14:08] VITALS: BP 126/79; BP 135/70; PULSE 101
[2024-03-23 14:34] VITALS: BMI 32.5
[2024-03-23 15:24] VITALS: BP 121/71
[2024-03-23] MEDS: HEPARIN 5000 UNITS SC (15:52)
[2024-03-23] MEDS: MESTINON 60 MG PO ×2 (15:52→21:49)
[2024-03-23 16:48] VITALS: PULSE 87
[2024-03-23 19:35] VITALS: BP 113/73
[2024-03-23] MEDS: FLOMAX PO (21:02)
[2024-03-23 23:30] VITALS: BP 129/70
[2024-03-24] MEDS: HEPARIN 5000 UNITS SC ×4 (00:19→23:08)
[2024-03-24 04:59] VITALS: BMI 33.0
[2024-03-24 07:25] VITALS: BP 140/77
[2024-03-24] MEDS: NON-FORMULARY ITEM 1 UNIT INH (07:29)
[2024-03-24 08:34] LABS: Hemoglobin 9.2 g/dL (13.0-18.0); Mean Corp Hgb Conc. 30.7 g/dL (33.0-37.0); Mean Corpuscular Volume 81.5 fL (80.0-94.0); Mean Platelet Volume 9.9 fL (7.4-10.4); Platelet Count 416 10^3/uL (130-400); Red Blood Cell Count 3.68 10^6/uL (4.70-6.10); Red Cell Dist. Width 17.9 % (11.5-14.5); White Blood Cell Count 15.9 10^3/uL (4.8-10.8)
--- NOTE | 2024-03-24 08:36 | W.PN.GI.CBS2 ---
Today's Communication / Plan
-
- Obstruction series, likely clamp trial, monitor bowel movements, sips of clears and ice
Assessment / Plan
-
68 yo M pmh met renal cancer here with back pain found to be constipation on narcotics with n/v, abdominal distension found to have ileus on CT.
Coffee ground/slight drop in Hb likely due to suction trauma in setting of heparin gtt on 03/20. Hemoglobin remained stable. No signs of bleeding.
Recommendations:
- NGT intermittent suction -started to pass flatus this morning. Has had decreased in NG tube output.
- Bowel rest
-Discussed possibly clamping tube later today first to see how he tolerates.
- OOB/ambulate - d/w RN will see if PT can walk him around
- minimize narcotics - lidocaine patch is helping
- IV protonix BID
03/24/24 - Waiting on obstruction series ordered this morning
NG tube output much improved. Passing flatus and bowel movements after starting Mestinon 60 mg 3 times daily. Okay for sips of clears and ice.
Needs nutrition. Hopefully able to start clears today
Subjective
Subjective
Date of Service: March 24, 2024
Patient feels less distended. Having significant flatus and has had 2 bowel movements since midnight even some form. Still complaining of hiccups
Objective
Data Reviewed
Laboratory Data:
Laboratory Results
03/24/24 07:59
Laboratory Results
APTT Cancelled 03/20/24 18:30
Magnesium 2.6 mg/dl (1.6-2.3) H 03/23/24 06:21
Total Bilirubin 0.5 mg/dl (0.2-1.3) 03/17/24 08:00
AST 20 U/L (17-59) 03/17/24 08:00
ALT 19 U/L (0-50) 03/17/24 08:00
Alkaline Phosphatase 103 U/L (38-126) 03/17/24 08:00
Vital Signs and I&O:
Vital Signs
Temp Pulse Resp BP Pulse Ox
98.6 F 75 16 140/77 95
03/24/24 07:25 03/24/24 07:30 03/24/24 07:30 03/24/24 07:25 03/24/24 07:30
I&O
03/23/24 03/24/24 03/25/24
06:59 06:59 06:59
Intake Total 840 / 840 240 / 240
Output Total 650 / 650
Balance 190 / 190 240 / 240
Physical Exam
Physical Exam
HEENT: Anicteric and Other (NGT in place)
GI: Soft, Distended and Normal Bowel Sounds (Hyperactive, tingling)
Neuro: Non Focal
[2024-03-24] MEDS: LIDOCAINE 4% PATCH TOPICAL (08:59)
[2024-03-24] MEDS: MESTINON 60 MG PO ×3 (09:02→21:16)
[2024-03-24] MEDS: PROTONIX IV 40 MG IV ×2 (09:02→20:08)
[2024-03-24] MEDS: NSS (PRESERVATIVE FREE) 10 ML IV ×2 (09:02→20:07)
[2024-03-24 09:11] LABS: Blood Urea Nitrogen 28 mg/dl (9-20); Calcium 9.6 mg/dl (8.4-10.2); Carbon Dioxide 21 mmol/L (22-30); Chloride 103 mmol/L (98-107); Estimated Creatinine Clearance 68 ml/min; Glucose 79 mg/dl (70-99); Magnesium 2.6 mg/dl (1.6-2.3); Potassium 4.2 mmol/L (3.5-5.1); Sodium 141 mmol/L (135-145)
--- NOTE | 2024-03-24 09:26 | W.PN.HOSP.TC ---
Today's Communication/Plan
-
see A/P
Assessment / Plan
Assessment / Plan
PET scan
1. Large focus of moderately intense FDG avid uptake in the right kidney corresponding with the patient's known primary malignancy.
2. FDG uptake involving numerous bilateral pulmonary nodules, subcarinal mediastinum, right hilum, right adrenal gland and left adrenal gland, as noted below, suspicious for FDG avid malignancy.
3. Several osseous foci of FDG uptake suspicious for malignancy, as detailed below. Of note, one lesion is seen most likely with epicenter involving a lucent lesion in the left mandible, difficult to determine anatomically
with this imaging modality. Suggest CT Facial Bone for more complete evaluation.
Lesion also suspected along the left side of the cervical spine possibly involving the left side of the C3 vertebral level for which MRI is suggested for more complete evaluation.
4. Small focus of minimal/mild FDG uptake involving an approximate 0.9 cm superficial midline soft tissue nodule along the posterior abdominal wall.
This may represent inflammatory activity are associated with soft tissue lesion such as a sebaceous cyst. A metastatic/malignant focus is also possible.
5. Prominent conglomerate moderately intense soft tissue FDG uptake seen within soft tissue density anterior to the left scapula which at least must be deemed suspicious for malignancy.
C-MRI: There are bilateral pulmonary nodules within the visualized upper lungs, compatible with pulmonary metastatic disease. There is a focal enhancing metastatic lesion within the left superior aspect of the C3 vertebral body. This extends into
the adjacent paraspinal soft tissues left anterolaterally. Compression of the medial margin of the left vertebral artery with no evidence for encasing or luminal narrowing. There is a enhancing metastatic lesion within the right posterior paraspinal
musculature at the C3 level. Changes of degenerative disc disease. At C3-4, there is cord compression and mild central canal stenosis. No convincing MR evidence for myelopathic signal. See above narrative for detailed findings at each level, with
multilevel foraminal narrowing.
T-MRI: No MR evidence of osseous metastatic disease. No intrinsic thoracic cord signal alteration or abnormal enhancement. Multilevel disc protrusions are present, as described. Most pronounced at T6-7, with secondary advanced thoracic cord
compression. No associated abnormal cord signal alteration. Moderate disc protrusion at T7-8 with moderate cord compression. Please refer to above discussion for specific and additional details.
A/P:
# upper thoracic back pain, acute
# ambulatory dysfunction
s/p MRI - studies summarized above
Neurosurgery consulted; no surgical intervention indicated
continue Tylenol (may need IV while with NGT), also Lidocaine patches
hold off opiates with active ileus
PT/OT evals: SNF recommended
# Ileus/Constipation
CT: Moderate distention of the distal esophagus and stomach. Moderate to severe distention of proximal small bowel loops. Collapsed ileal small bowel loops in the right lower quadrant. Severe distention of the cecum with fluid and mild distention of
the transverse colon. Mostly collapsed distal colon containing moderate diverticulosis. The pattern of bowel dilatation is most suggestive of a SEVERE ADYNAMIC ILEUS. A small bowel obstruction secondary to an adhesive band is considered less likely
given colonic distention and the absence of peritoneal fluid.
s/p NGT placement 03/20 for decompression; now clamped
GI following to direct NGT
stopped opiates, encourage ambulation, PT OT eval
IV Protonix BID
# Metastatic poorly differentiated RCC with osseous mets, lung field meds, L mandible meds
PET and CT reviewed with family
OP follow up Oncology for definitive treatment discussions. May also benefit from Rad Onc consultation.
# RERE, in setting of ileus
s/p IVF
hold nephrotoxins
Cont bladder scans
SCr today at 1.3 from baseline 1.1
# Left jaw pain consistent with osseous mets seen on CT
s/p ER aspiration attempt with bloody drainage
# Chronic anemia
# Anemia of chronic disorder
Hb stable
# A. Fib/ A. Flutter
hold Eliquis/Metoprolol
heparin drip started 03/20 but held later that evening due to concern for coffee grounds in NGT.
Consider resuming AC when NGT removed,
Started HSQ while off AC
Cont to monitor Hb, stable.
IV prn Lopressor - tele added
# Essential HTN
continue BB
hold Entresto/Lasix with RERE
BP stable without meds
# Chronic peripheral edema
I/O, daily weights
Apply Tubigrip's
hold ROTOR PILOT Lasix 40 mg every 48 H
watch volume status
# History of cardiomyopathy 2019 with EF of 25% required LifeVest x 1 month� resolved
updated Echo 07/2023: normal EF
# Asthma-no acute exacerbation
continue Trelegy
# Obstructive sleep apnea
on CPAP
# Obesity due to excess calorie consumption
continue ensure supplements
DVT ppx: HSQ while off AC
Code: DNR
DW at bedside
Anticipated Discharge: 24 - 48 hours
Subjective/Interval History
-
Date of Service: March 24, 2024
Objective Data
-
Labs:
Laboratory Results
03/24/24
07:59
WBC 15.9 H
Hgb 9.2 L
Hct 30.0 L
Plt Count 416 H
Sodium 141
Potassium 4.2
Chloride 103
Carbon Dioxide 21 L
BUN 28 H
Creatinine 1.3
Glucose 79
Calcium 9.6
Vital Signs:
Vital Signs
Temp Pulse Resp BP Pulse Ox
37.0 C 75 16 140/77 95
03/24/24 07:25 03/24/24 07:30 03/24/24 07:30 03/24/24 07:25 03/24/24 07:30
I&O
03/23/24 03/24/24 03/25/24
06:59 06:59 06:59
Intake Total 840 / 840 240 / 240
Output Total 650 / 650
Balance 190 / 190 240 / 240
Review of Systems
-
All other systems: Reviewed and negative
Physical Exam
-
General: Well Developed, Well Nourished, No Apparent Distress, Comfortable and Conversant
HEENT: Normocephalic
Respiratory: Clear to Auscultation and Non Labored Respirations; Negative Accessory Resp Muscle Use
Cardiac: Regular Rhythm and S1/S2
GI: Soft, Nontender and Other (NGT)
Neuro: Awake and Alert
Psych: Calm and Intact Judgement/Insight
Data Reviewed
-
Labs: Labs Reviewed by me
--- NOTE | 2024-03-24 09:30 | W.PN.ONC2 ---
Today's Communication / Plan
-
Continue management of NG tube per GI recommendations.
Continue current pain management regimen. Monitor for progression of pain and treat accordingly.
Patient to be discharged to [facility] for 1 week
Outpatient radiation oncology and medical oncology follow-up. He would like to follow-up at [facility].
Impression
Impression
77-year-old male with recent diagnosis of metastatic renal cell carcinoma to multiple sites, with progressive mid low back pain.
Ileus from opioids, now w/ NG tube
Subjective/Objective
Chief Complaint
Oncology follow-up
Subjective
Patient reports feeling well today. He has no nausea, vomiting, new pain. He states his back pain is resolved. Patient currently has NG tube placed secondary to ileus. He states that last night he had 2 large bowel movements and significant
amount of gas. He is to be discharged to rehab at [facility].
Vital Signs:
Vital Signs
Temp Pulse Resp BP Pulse Ox
98.6 F 75 16 140/77 95
03/24/24 07:25 03/24/24 07:30 03/24/24 07:30 03/24/24 07:25 03/24/24 07:30
Lab Results:
Laboratory Data
WBC 15.9 10^3/uL (4.8-10.8) H 03/24/24 07:59
Hgb 9.2 g/dL (13.0-18.0) L 03/24/24 07:59
Plt Count 416 10^3/uL (130-400) H 03/24/24 07:59
APTT Cancelled 03/20/24 18:30
eGFR 59.10 03/24/24 07:59
Physical Exam
General: Alert and oriented x 3, conversant, resting comfortably
Review of Systems
Review of Systems
All negative unless stated
Gastrointestinal: Reports Diarrhea and Other (Gas)
--- NOTE | 2024-03-24 11:12 | CM ---
Patient seen bedside.
Patient continues with NGT.
PT/OT recommending Acute rehab.
Spoke with patient and bedside,they are aawre of CM availability should needs arise.
Plan: rehab once medically stable.
--- NOTE | 2024-03-24 14:42 | W.PN.UPDATE ---
Update Note
Progress Note Update
I just got off the phone with his , Dominique. I told her about the x-ray and that there is slight improvement but is still significantly distended. Hopefully he will move his bowels more throughout the night and get rid of some of this air. If I
come in in the morning and he is still the same going to take him for a unprepped colonoscopy and decompress him. Until then it is okay for him to have an Ensure clear to sip through the evening.
[2024-03-24 15:16] VITALS: BP 133/73
--- NOTE | 2024-03-24 15:29 | PTCARENOTE ---
Addendum entered by Bailey Lou RN 03/24/24 19:46:
Pt tolerating clear liquid diet and clamped NG tube. Denies N/V or increased distention.
Original Note:
NG tube clamped per Dr. Kearney instruction. Patient allowed clear liquid diet. Encouraged to go slowly. Patient instructed to notify RN of any nausea or distention.
[2024-03-24] MEDS: NSS 1000 IV (16:39)
[2024-03-24] MEDS: FLOMAX 0.4 MG PO (21:16)
[2024-03-24 23:18] VITALS: BP 120/76
[2024-03-25 05:29] VITALS: BMI 32.9
[2024-03-25] MEDS: NON-FORMULARY ITEM 1 UNIT INH (07:43)
[2024-03-25 07:54] LABS: Hematocrit 27.9 % (39.0-52.0); Hemoglobin 8.4 g/dL (13.0-18.0); Mean Corp Hgb Conc. 30.1 g/dL (33.0-37.0); Mean Corpuscular Hgb 25.1 pg (27.0-31.0); Mean Corpuscular Volume 83.5 fL (80.0-94.0); Mean Platelet Volume 9.9 fL (7.4-10.4); Platelet Count 401 10^3/uL (130-400); Red Blood Cell Count 3.34 10^6/uL (4.70-6.10); Red Cell Dist. Width 17.9 % (11.5-14.5); White Blood Cell Count 13.3 10^3/uL (4.8-10.8)
[2024-03-25 08:02] VITALS: BP 139/85
--- NOTE | 2024-03-25 08:20 | W.PN.UPDATE ---
Update Note
Progress Note Update
improved but still distended and high pitched noises
passing flatus and watery stools
no n/v and tolerated clamp all night - removed NGT
tolerated clears yesterday
PLAN: unprepped colonoscopy for decompression then xray, then clears with nutrition supplements and continue mestinon. Ambulate, avoid anti-cholinergics and narcotics if possible
[2024-03-25] MEDS: NSS 1000 IV (08:25)
[2024-03-25] MEDS: LIDOCAINE 4% PATCH TOPICAL ×2 (08:25→08:27)
[2024-03-25 08:26] LABS: Blood Urea Nitrogen 26 mg/dl (9-20); Calcium 9.2 mg/dl (8.4-10.2); Carbon Dioxide 22 mmol/L (22-30); Chloride 105 mmol/L (98-107); Estimated Creatinine Clearance 73 ml/min; Glucose 91 mg/dl (70-99); Magnesium 2.4 mg/dl (1.6-2.3); Potassium 3.9 mmol/L (3.5-5.1); Sodium 141 mmol/L (135-145); eGFR > 60.00
[2024-03-25] MEDS: PROTONIX IV 40 MG IV ×2 (08:26→20:10)
[2024-03-25] MEDS: MESTINON 60 MG PO ×3 (08:26→21:48)
[2024-03-25] MEDS: NSS (PRESERVATIVE FREE) 10 ML IV ×2 (08:26→20:10)
[2024-03-25] MEDS: HEPARIN 5000 UNITS SC (08:27)
--- NOTE | 2024-03-25 09:35 | W.PN.HOSP.TC ---
Today's Communication/Plan
-
see A/P
Assessment / Plan
Assessment / Plan
PET scan
1. Large focus of moderately intense FDG avid uptake in the right kidney corresponding with the patient's known primary malignancy.
2. FDG uptake involving numerous bilateral pulmonary nodules, subcarinal mediastinum, right hilum, right adrenal gland and left adrenal gland, as noted below, suspicious for FDG avid malignancy.
3. Several osseous foci of FDG uptake suspicious for malignancy, as detailed below. Of note, one lesion is seen most likely with epicenter involving a lucent lesion in the left mandible, difficult to determine anatomically
with this imaging modality. Suggest CT Facial Bone for more complete evaluation.
Lesion also suspected along the left side of the cervical spine possibly involving the left side of the C3 vertebral level for which MRI is suggested for more complete evaluation.
4. Small focus of minimal/mild FDG uptake involving an approximate 0.9 cm superficial midline soft tissue nodule along the posterior abdominal wall.
This may represent inflammatory activity are associated with soft tissue lesion such as a sebaceous cyst. A metastatic/malignant focus is also possible.
5. Prominent conglomerate moderately intense soft tissue FDG uptake seen within soft tissue density anterior to the left scapula which at least must be deemed suspicious for malignancy.
C-MRI: There are bilateral pulmonary nodules within the visualized upper lungs, compatible with pulmonary metastatic disease. There is a focal enhancing metastatic lesion within the left superior aspect of the C3 vertebral body. This extends into
the adjacent paraspinal soft tissues left anterolaterally. Compression of the medial margin of the left vertebral artery with no evidence for encasing or luminal narrowing. There is a enhancing metastatic lesion within the right posterior paraspinal
musculature at the C3 level. Changes of degenerative disc disease. At C3-4, there is cord compression and mild central canal stenosis. No convincing MR evidence for myelopathic signal. See above narrative for detailed findings at each level, with
multilevel foraminal narrowing.
T-MRI: No MR evidence of osseous metastatic disease. No intrinsic thoracic cord signal alteration or abnormal enhancement. Multilevel disc protrusions are present, as described. Most pronounced at T6-7, with secondary advanced thoracic cord
compression. No associated abnormal cord signal alteration. Moderate disc protrusion at T7-8 with moderate cord compression. Please refer to above discussion for specific and additional details.
A/P:
# upper thoracic back pain, acute
# ambulatory dysfunction
s/p MRI - studies summarized above
Neurosurgery consulted; no surgical intervention indicated
continue Tylenol (may need IV while with NGT), also Lidocaine patches
hold off opiates with active ileus
PT/OT evals: SNF recommended
# Ileus/Constipation
CT: Moderate distention of the distal esophagus and stomach. Moderate to severe distention of proximal small bowel loops. Collapsed ileal small bowel loops in the right lower quadrant. Severe distention of the cecum with fluid and mild distention of
the transverse colon. Mostly collapsed distal colon containing moderate diverticulosis. The pattern of bowel dilatation is most suggestive of a SEVERE ADYNAMIC ILEUS. A small bowel obstruction secondary to an adhesive band is considered less likely
given colonic distention and the absence of peritoneal fluid.
s/p NGT placement 03/20 for decompression
s/p Colonoscopy decompression 03/25
NGT removed
Restarted clears
Check follow up AXR
stopped opiates, encourage ambulation, PT OT eval
IV Protonix BID
# Metastatic poorly differentiated RCC with osseous mets, lung field meds, L mandible meds
PET and CT reviewed with family
OP follow up Oncology for definitive treatment discussions. May also benefit from Rad Onc consultation.
# RERE in setting of ileus, resolved
s/p IVF
hold nephrotoxins
Cont bladder scans
SCr today at 1.2 from baseline 1.1
# Left jaw pain consistent with osseous mets seen on CT
s/p ER aspiration attempt with bloody drainage
# Chronic anemia
# Anemia of chronic disorder
Hb stable
# A. Fib/ A. Flutter
Resume SERVICE AGENT Eliquis now that NGT is removed
SERVICE AGENT Metoprolol remain on hold
Cont IV prn Lopressor
# Essential HTN
continue BB
hold Entresto/Lasix with RERE
BP stable without meds
# Chronic peripheral edema
I/O, daily weights
Apply Tubigrip's
IV Lasix x1, resume SERVICE AGENT Lasix 40 mg every 48 H
watch volume status
# History of cardiomyopathy 2019 with EF of 25% required LifeVest x 1 month� resolved
updated Echo 07/2023: normal EF
# Asthma-no acute exacerbation
continue Trelegy
# Obstructive sleep apnea
on CPAP
# Obesity due to excess calorie consumption
continue ensure supplements
DVT ppx: resumed SERVICE AGENT Eliquis
Code: DNR
DW GI
total time spent 51 min
Anticipated Discharge: 24 - 48 hours
Subjective/Interval History
-
Date of Service: March 25, 2024
Objective Data
-
Labs:
Laboratory Results
03/25/24
06:47
WBC 13.3 H
Hgb 8.4 L
Hct 27.9 L
Plt Count 401 H
Sodium 141
Potassium 3.9
Chloride 105
Carbon Dioxide 22
BUN 26 H
Creatinine 1.2
Glucose 91
Calcium 9.2
Vital Signs:
Vital Signs
Temp Pulse Resp BP Pulse Ox
36.5 C 79 18 139/85 96
03/25/24 08:02 03/25/24 08:02 03/25/24 08:02 03/25/24 08:02 03/25/24 08:02
I&O
03/24/24 03/25/24 03/26/24
06:59 06:59 06:59
Intake Total 240 / 240 150 / 150
Balance 240 / 240 150 / 150
Review of Systems
-
All other systems: Reviewed and negative
Physical Exam
-
General: Well Developed, Well Nourished, No Apparent Distress, Comfortable and Conversant
HEENT: Normocephalic
Respiratory: Clear to Auscultation and Non Labored Respirations; Negative Accessory Resp Muscle Use
Cardiac: Regular Rhythm and S1/S2
GI: Soft, Nontender and Nondistended
Musculoskeletal: Edema, Right Lower Extrem and Edema, Left Lower Extrem
Neuro: Awake and Alert
Psych: Calm and Intact Judgement/Insight
Data Reviewed
-
Labs: Labs Reviewed by me
[2024-03-25 10:45] VITALS: BP 93/53; BP_SYST 18
[2024-03-25 11:00] VITALS: BP 117/69; BP_SYST 18
--- NOTE | 2024-03-25 11:15 | PTCARENOTE ---
03/25- Patient returned from procedure without issue. AAOX3; Skin CDI; No current complaints.
[2024-03-25] MEDS: LASIX 20 MG IV (12:13)
--- NOTE | 2024-03-25 12:33 | CM ---
Patient seen bedside.
Colonoscopy today.
PT/OT recommending rehab.
Plan: rehab when stable, hopefully [facility].
--- NOTE | 2024-03-25 15:53 | W.PN.UPDATE ---
Update Note
Progress Note Update
xray is much improved
will start soft diet - aware to go slow
if all stays well tomorrow - will start to taper off the mestinon
avoid narcs/Unnecessary anticholinergics
[2024-03-25 16:06] VITALS: BP 126/79
[2024-03-25] MEDS: ELIQUIS 5 MG PO (20:10)
[2024-03-25] MEDS: FLOMAX 0.4 MG PO (21:48)
[2024-03-25 23:58] VITALS: BP 106/68
[2024-03-26 06:00] VITALS: BMI 32.7
[2024-03-26 07:02] VITALS: BP 105/66
[2024-03-26] MEDS: NON-FORMULARY ITEM 1 UNIT INH (07:41)
[2024-03-26 07:43] LABS: Hematocrit 29.3 % (39.0-52.0); Hemoglobin 8.8 g/dL (13.0-18.0); Mean Corpuscular Hgb 25.1 pg (27.0-31.0); Mean Corpuscular Volume 83.7 fL (80.0-94.0); Mean Platelet Volume 9.8 fL (7.4-10.4); Platelet Count 392 10^3/uL (130-400); Red Cell Dist. Width 17.6 % (11.5-14.5); White Blood Cell Count 13.8 10^3/uL (4.8-10.8)
[2024-03-26 08:18] LABS: Blood Urea Nitrogen 21 mg/dl (9-20); Calcium 9.2 mg/dl (8.4-10.2); Carbon Dioxide 25 mmol/L (22-30); Chloride 102 mmol/L (98-107); Estimated Creatinine Clearance 68 ml/min; Glucose 110 mg/dl (70-99); Potassium 3.2 mmol/L (3.5-5.1); Sodium 139 mmol/L (135-145)
[2024-03-26] MEDS: MESTINON 60 MG PO (08:46)
[2024-03-26] MEDS: ELIQUIS 5 MG PO ×2 (08:46→19:32)
[2024-03-26] MEDS: LASIX 40 MG PO (08:46)
[2024-03-26] MEDS: PROTONIX IV 40 MG IV ×2 (08:47→19:32)
[2024-03-26] MEDS: LIDOCAINE 4% PATCH TOPICAL (08:47)
[2024-03-26] MEDS: NSS (PRESERVATIVE FREE) 10 ML IV ×2 (08:47→19:32)
[2024-03-26 09:02] VITALS: BP 105/66
--- NOTE | 2024-03-26 09:03 | W.PN.HOSP.TC ---
Today's Communication/Plan
-
see A/P
PMR CS for [facility] eval
Assessment / Plan
Assessment / Plan
PET scan
1. Large focus of moderately intense FDG avid uptake in the right kidney corresponding with the patient's known primary malignancy.
2. FDG uptake involving numerous bilateral pulmonary nodules, subcarinal mediastinum, right hilum, right adrenal gland and left adrenal gland, as noted below, suspicious for FDG avid malignancy.
3. Several osseous foci of FDG uptake suspicious for malignancy, as detailed below. Of note, one lesion is seen most likely with epicenter involving a lucent lesion in the left mandible, difficult to determine anatomically
with this imaging modality. Suggest CT Facial Bone for more complete evaluation.
Lesion also suspected along the left side of the cervical spine possibly involving the left side of the C3 vertebral level for which MRI is suggested for more complete evaluation.
4. Small focus of minimal/mild FDG uptake involving an approximate 0.9 cm superficial midline soft tissue nodule along the posterior abdominal wall.
This may represent inflammatory activity are associated with soft tissue lesion such as a sebaceous cyst. A metastatic/malignant focus is also possible.
5. Prominent conglomerate moderately intense soft tissue FDG uptake seen within soft tissue density anterior to the left scapula which at least must be deemed suspicious for malignancy.
C-MRI: There are bilateral pulmonary nodules within the visualized upper lungs, compatible with pulmonary metastatic disease. There is a focal enhancing metastatic lesion within the left superior aspect of the C3 vertebral body. This extends into
the adjacent paraspinal soft tissues left anterolaterally. Compression of the medial margin of the left vertebral artery with no evidence for encasing or luminal narrowing. There is a enhancing metastatic lesion within the right posterior paraspinal
musculature at the C3 level. Changes of degenerative disc disease. At C3-4, there is cord compression and mild central canal stenosis. No convincing MR evidence for myelopathic signal. See above narrative for detailed findings at each level, with
multilevel foraminal narrowing.
T-MRI: No MR evidence of osseous metastatic disease. No intrinsic thoracic cord signal alteration or abnormal enhancement. Multilevel disc protrusions are present, as described. Most pronounced at T6-7, with secondary advanced thoracic cord
compression. No associated abnormal cord signal alteration. Moderate disc protrusion at T7-8 with moderate cord compression. Please refer to above discussion for specific and additional details.
A/P:
# upper thoracic back pain, acute
# ambulatory dysfunction
s/p MRI - studies summarized above
Neurosurgery consulted; no surgical intervention indicated
continue Tylenol (may need IV while with NGT), also Lidocaine patches
hold off opiates with active ileus
PT/OT evals: SNF recommended
# Ileus/Constipation
CT: Moderate distention of the distal esophagus and stomach. Moderate to severe distention of proximal small bowel loops. Collapsed ileal small bowel loops in the right lower quadrant. Severe distention of the cecum with fluid and mild distention of
the transverse colon. Mostly collapsed distal colon containing moderate diverticulosis. The pattern of bowel dilatation is most suggestive of a SEVERE ADYNAMIC ILEUS. A small bowel obstruction secondary to an adhesive band is considered less likely
given colonic distention and the absence of peritoneal fluid.
s/p NGT placement 03/20 for decompression
s/p Colonoscopy decompression 03/25 with improvement
NGT removed
Restarted diet, advanced to soft and bite size
GI planning to taper off Mestinon
avoid narcs/anticholinergics, encourage ambulation
IV Protonix BID
# Metastatic poorly differentiated RCC with osseous mets, lung field meds, L mandible meds
PET and CT reviewed with family
OP follow up Oncology for definitive treatment discussions. May also benefit from Rad Onc consultation.
# RERE in setting of ileus, resolved
s/p IVF
hold nephrotoxins
Cont bladder scans
SCr today at 1.3 from baseline 1.1
# Left jaw pain consistent with osseous mets seen on CT
s/p ER aspiration attempt with bloody drainage
# Chronic anemia
# Anemia of chronic disorder
Hb stable
# A. Fib/ A. Flutter
Resumed STITCHDOWN THREAD LASTER Eliquis
STITCHDOWN THREAD LASTER Metoprolol remain on hold
Cont IV prn Lopressor
# Essential HTN
BP stable off meds
resumed STITCHDOWN THREAD LASTER Lasix 40 mg every 48 H
# Chronic peripheral edema
I/O, daily weights
Apply Tubigrip's
IV Lasix x1, resumed STITCHDOWN THREAD LASTER Lasix 40 mg every 48 H
watch volume status
# History of cardiomyopathy 2019 with EF of 25% required LifeVest x 1 month� resolved
updated Echo 07/2023: normal EF
# Asthma-no acute exacerbation
continue Trelegy
# Obstructive sleep apnea
on CPAP
# Obesity due to excess calorie consumption
continue ensure supplements
DVT ppx: resumed STITCHDOWN THREAD LASTER Eliquis
Code: DNR
Dispo planning: SNF vs [facility]
Anticipated Discharge: 24 - 48 hours
Subjective/Interval History
-
Date of Service: March 26, 2024
Objective Data
-
Labs:
Laboratory Results
03/26/24
07:12
WBC 13.8 H
Hgb 8.8 L
Hct 29.3 L
Plt Count 392
Sodium 139
Potassium 3.2 L
Chloride 102
Carbon Dioxide 25
BUN 21 H
Creatinine 1.3
Glucose 110 H
Calcium 9.2
Vital Signs:
Vital Signs
Temp Pulse Resp BP Pulse Ox
36.7 C 88 16 106/68 95
03/25/24 23:58 03/26/24 07:42 03/26/24 07:42 03/25/24 23:58 03/26/24 07:42
I&O
03/25/24 03/26/24 03/27/24
06:59 06:59 06:59
Intake Total 150 / 150
Balance 150 / 150
Review of Systems
-
All other systems: Reviewed and negative
Physical Exam
-
General: Well Developed, Well Nourished, No Apparent Distress, Comfortable and Conversant
HEENT: Normocephalic
Respiratory: Clear to Auscultation and Non Labored Respirations; Negative Accessory Resp Muscle Use
Cardiac: Regular Rhythm and S1/S2
GI: Soft, Nontender and Nondistended
Musculoskeletal: Edema, Right Lower Extrem and Edema, Left Lower Extrem
Neuro: Awake and Alert
Psych: Calm and Intact Judgement/Insight
Data Reviewed
-
Diagnostic Radiology: Report Reviewed by me
Labs: Labs Reviewed by me
--- NOTE | 2024-03-26 09:18 | W.PN.GI.CBS2 ---
Today's Communication / Plan
-
Improving bowel function after colonic decompression. Continue soft diet while weaning Mestinon. Rest of conservative measures as below.
Assessment / Plan
-
68 yo M pmh met renal cancer here with back pain found to be constipation on narcotics with n/v, abdominal distension found to have ileus on CT.
Coffee ground/slight drop in Hb likely due to suction trauma in setting of heparin gtt on 03/20. Hemoglobin remained stable. No signs of bleeding.
S/p colonoscopy 03/25 (for colonic decompression, cecal diameter > 13 mm)- unprepped colonoscopy, nguyen-diverticulosis, congested mucosa in TC, no significant colonic dilation and therefore no rectal tube placed, suctioned air and fluid as much as
possible
Repeat KUB 03/25: suggesting probable resolving ileus with nonspecific bowel gas pattern, much improved
Remains on Mestinon 60 mg TiD with ongoing improvement and return of bowel function after colonic decompression with improving ileus.
Recommendations:
- Continue soft, bite-sized meals
- Optimize electrolytes to promote bowel function, K > 4.0 and Mg > 2.0
- Encourage frequent ambulation, OOB as tolerated
- Start to wean Mestinon while in hospital, will decrease to 60 mg BiD. May decrease to once daily over weekend but would not continue on discharge
- Avoid all anti-cholinergics and opioids as much as possible
- Rest of care per primary team
Subjective
Subjective
Date of Service: March 26, 2024
- S/p colonoscopy 03/25 (for colonic decompression, cecal diameter > 13 mm)- unprepped colonoscopy, nguyen-diverticulosis, congested mucosa in TC, no significant colonic dilation and therefore no rectal tube placed, suctioned air and fluid as much as
possible
- Repeat KUB 03/25: suggesting probable resolving ileus with nonspecific bowel gas pattern, much improved
- Remains on Mestinon 60 mg TiD
Feeling well this morning, notes significant improvement in regards to distension. No further hiccups or abdominal discomfort. Passing significant amount of flatus, last BM yesterday evening with soft brown stool. Has been able to ambulate.
Objective
Data Reviewed
Laboratory Data:
Laboratory Results
03/26/24 07:12
03/26/24 07:12
Laboratory Results
APTT Cancelled 03/20/24 18:30
Magnesium 2.4 mg/dl (1.6-2.3) H 03/25/24 06:47
Total Bilirubin 0.5 mg/dl (0.2-1.3) 03/17/24 08:00
AST 20 U/L (17-59) 03/17/24 08:00
ALT 19 U/L (0-50) 03/17/24 08:00
Alkaline Phosphatase 103 U/L (38-126) 03/17/24 08:00
Vital Signs and I&O:
Vital Signs
Temp Pulse Resp BP Pulse Ox
97.4 F 88 16 105/66 95
03/26/24 07:02 03/26/24 07:42 03/26/24 07:42 03/26/24 07:02 03/26/24 07:42
I&O
03/25/24 03/26/24 03/27/24
06:59 06:59 06:59
Intake Total 150 / 150
Balance 150 / 150
Physical Exam
Physical Exam
HEENT: Anicteric and Moist mucous membranes
Cardiology: Normal Sinus Rhythm
Pulmonary: Other (Non-labored breathing on room air)
GI: Soft, Distended, Non Tender and Normal Bowel Sounds
Extremities: No Edema
Neuro: Non Focal
--- NOTE | 2024-03-26 10:26 | CM ---
Addendum entered by Soledad Lan 03/26/24 15:22:
Spoke with patient and spouse, both still would like acute rehab. Agreeable to [facility]?
Discussed outpatient therapy with patient and home care. had [facility] in the past.
Addendum entered by Soledad Lan 03/26/24 11:26:
[facility] with no bed availability.
Discussed inpatient and outpatient options with patient.
Referral sent to Rehab.
Plan: rehab once bed available.
Original Note:
Spoke with patient bedside.
patient interested in acute rehab.
TC to [facility] to check bed availability.
Plan: rehab when medically stable and bed available.
--- NOTE | 2024-03-26 11:15 | PTCARENOTE ---
03/26- Large Dental Abscess in L-lower Molar Gingiva with moderate amt of sanguinous drainage at this time. L-jaw has +1 edema and tender to touch. No occlusion of pharynx or any other S/S observed or reported. T=97.5. Warm compress applied; Warm
saline given for gargling. Notified Physician.
[2024-03-26] MEDS: UNASYN IV ×3 (12:26→23:01)
[2024-03-26] MEDS: KCL 270 MEQ IV (12:26)
[2024-03-26 15:15] VITALS: BP 107/71
--- NOTE | 2024-03-26 18:39 | CON.MD ---
Consultation - Medical
-
Referring Provider: Dr. Jazzmine Kaye
Chief Complaint:�Debility
�
History of Present Illness:�68-year-old male with PMH (as below) presented to [facility] on 03/16/2024 with severe thoracic back pain with darkened urine and increased urgency. On 03/04/2024 he was found to have a primary renal carcinoma.
PET scan noting bilateral pulmonary nodules, subcarinal mediastinum, right hilum, right adrenal gland and left adrenal gland lesions with several osseous foci in the left mandible, left side of the C3 vertebrae, soft tissue nodule along the
posterior abdominal wall and soft tissue density in the left scapula. Treated with pain medications. MRI of the thoracic spine with concern for cord compression secondary to malignancy per oncology. Seen by neurosurgery. Known C3 vertebral body
metastatic disease with no obvious cord compression. Noted with thoracic spine degenerative disc protrusions most prominent T6/T7 with no obvious evidence for cord compression and no signal changes seen at that level. No neurosurgical
intervention. Patient is plan for outpatient radiation. He developed an ileus thought to be from narcotics and had NG tube placed. Developed SIRS. Started on Mestinon. On 03/25/2024 he had a colonoscopy for decompression. Overall patient is
feeling much better. Moving his bowels and passing gas. Denies any nausea or vomiting. Back pain is controlled with medication. He is doing better with therapy.
�
Past Medical History:�A-fib/atrial flutter, HTN, history of cardiomyopathy 2019 with EF of 25% required LifeVest x 1 month�resolved asthma, obstructive sleep apnea, right cell renal carcinoma with new recent mets, anemia/iron deficiency
Procedure History:�Right renal cell carcinoma biopsy, retinopexy repair, tonsillectomy, A-flutter ablation, cataract extraction, detached retina repair left eye
Family History:�Mother lung cancer former smoker, father GA age 59, 1 brother living with history of Parkinson's and prostate cancer
�
Social History:�
Functional Level Premorbidly:�Independent with all activities�
Functional Level Currently:�Supervision bed mobility, min assist transfer, ambulating 50 feet 3 times with min assist for contact-guard. Using rolling walker. He is rest breaks secondary to fatigue. Mod assist lower extremity self-care and bed
mobility.
�
Tobacco:�Denies�
Alcohol:�Monthly
Drug use:�Denies�
�
Lives with:� Dominique
24-hour assistance available:�Yes
Number of floors:�1
# steps to enter:�1
Occupation:�Retired
Allergies:�
Allergy/AdvReac Type Severity Reaction Status Date / Time
Sulfa (Sulfonamide Allergy Unknown Verified 03/16/24 13:49
Antibiotics)
�
Review of Systems:�
Constitutional: (x) abNormal _fatigue
Eye: (x) Normal _
Ear/Nose/Throat: (x) Normal _
Respiratory: (x) Normal _
Cardiovascular: (x) Normal _
Gastrointestinal: (x) Normal _
Genitourinary: (x) Normal _
Musculoskeletal: (x) Normal _
Integumentary: (x) Normal _
Neurologic: (x) Normal _
Psychiatric: (x) Normal _
Endocrine: (x) Normal _
Hematologic/Lymphatic: (x) Normal _
Allergic/Immunologic: (x) Normal _
�
Medications:�
Active Current Visit Medication List
Category Date Time Status
0.9% Sodium Chloride [Nss (Preservative Free)] Med 03/20/24 20:00 Active
10 ml IV BID
Acetaminophen [Tylenol] Med 03/16/24 19:16 Hold
650 mg PO Q4HPRN PRN
Ampicillin/Sulbactam 1.5 G [Unasyn] 1.5 gm Med 03/26/24 12:00 Active
0.9% Sodium Chloride [Nss] 50 ml
IV Q6H
Apixaban [Eliquis] Med 03/16/24 20:00 Active
5 mg PO BID
Bisacodyl [Dulcolax] Med 03/19/24 08:19 Active
10 mg RECTAL DAILYPRN PRN
Calcium 300mg(Ca. Carb. 750mg) [Tums Ex (Extra Strength Med 03/17/24 15:40 Hold
) Chewable Tablet]
600 mg PO Q4HPRN PRN
Docusate W/Senna [Senokot-S] Med 03/18/24 08:40 Hold
1 tablet PO BID
Flush (0.9% Sodium Chloride) [Flush (Nss)] Med 03/17/24 16:00 Active
See Dose Instructions IV PER PROTOCOL
Furosemide [Lasix] Med 03/18/24 08:00 Active
40 mg PO Q48H
Lidocaine [Lidocaine 4% Patch] Med 03/20/24 10:35 Active
3 patch TOPICAL DAILY
Metoclopramide [Reglan] Med 03/18/24 11:15 Active
5 mg IV Q6HPRN PRN
Metoprolol Xl [Toprol Xl] Med 03/16/24 19:16 Hold
50 mg PO QPM
Metoprolol [Lopressor] Med 03/20/24 10:34 Active
5 mg IV Q6HPRN PRN
Non-Formulary Item Med 03/17/24 13:00 Active
See Dose Instructions INH R DAILY
Ondansetron Injectable [Zofran] Med 03/16/24 19:16 Active
4 mg IV Q6HPRN PRN
Pantoprazole [Protonix IV] Med 03/20/24 20:00 Active
40 mg IV BID
Polyethylene Glycol Powder [Miralax] Med 03/18/24 08:40 Hold
17 grams PO DAILY
Pyridostigmine [Mestinon] Med 03/27/24 08:00 Active
60 mg PO DAILY
Sacubitril 24/Valsartan 26 [Entresto 24 mg/26 mg] Med 03/16/24 20:00 Hold
1 tab PO BID
Tamsulosin [Flomax] Med 03/16/24 22:00 Active
0.4 mg PO HS
�
Vitals:�
Temp Pulse Resp BP Pulse Ox
97.7 F 88 20 107/71 92
03/26/24 15:15 03/26/24 15:15 03/26/24 15:15 03/26/24 15:15 03/26/24 15:15
Height 6 ft
Actual Weight 109.344 kg
Body Mass Index (BMI) 32.7
�
Physical Exam:�
General Appearance/Observation: Well-developed, well-nourished male in no apparent distress.�
Pain/Comfort Assessment: Denies�
Mood/Affect: Appropriate�
�
Integumentary/Operative Site:�No lesions noted during course of exam
Eyes: Conjunctiva/Lids: normal���� Pupils: pupils equal round and reactive to light and Accommodation�
Ears/Nose/Throat: oral mucosa moist,� throat clear.������������ Lips/Teeth/Gums: normal�
Cardiovascular: Heart: regular, no murmur�
Pulses: dorsalis pedis 2+ bilaterally�
Respiratory: Respiratory Effort/Chest Expansion: normal������� Auscultation: Clear to auscultation bilaterally�
Gastrointestinal: abdomen not tender, mild distension, abdominal bowel sounds present
Genitourinary: No Kumar�
Extremities:�Edema: Mild nonpitting edema in lower extremities�cyanosis: None�Trophic�changes: None
�
Neurology Exam:
Orientation: Alert, Oriented to self, Time, Place�
Memory: Intact
Comprehension: Intact
Two step command: Intact
Cranial Nerves:
�� CNII:�Pupillary light reflex: Intact����
�� CN III, IV, : Extraocular muscles: Intact�
�� CN VII:�Facial movement: Symmetric
�� CN VIII:�Hearing: Normal
�� CN IX/X:�Speech & swallow: Normal,�Position of Uvula: Midline
�� CN XI:�Shoulder shrug: Symmetric
�� CN XII:�Tongue protrusion: Midline
Sensory:
�� Light touch: Intact in bilateral upper and lower extremities
�
Reflexes:
�� Biceps: 2+ bilaterally
�� Brachioradialis: 2+ bilaterally
�� Triceps: 2+ bilaterally
�� Patellar: 0 bilaterally
�� Achilles: 0 bilaterally
�� Babinski: Down going bilaterally
�� Clonus: None
�� Akbar: Negative bilaterally�
Cerebellar: Dysmetria/Ataxia: None�
Musculoskeletal:Motor: (Manual muscle scale 0-5)�
Muscle SA EF WE EE FF FA HF KE DF EHL PF
Right� 4 5 5 5 5 3+ 5 5 5
Left 4 5 5 5 5 4 5 5 5
�
Tone: Normal in all extremities�
Range of Motion: Passively within normal limits in all extremities�
�
Lab Results
Laboratory Data
03/26/24 07:12
03/26/24 07:12
APTT Cancelled 03/20/24 18:30
Total Bilirubin 0.5 mg/dl (0.2-1.3) 03/17/24 08:00
AST 20 U/L (17-59) 03/17/24 08:00
ALT 19 U/L (0-50) 03/17/24 08:00
Alkaline Phosphatase 103 U/L (38-126) 03/17/24 08:00
Total Protein 6.8 g/dl (6.3-8.2) 03/17/24 08:00
Albumin 3.6 g/dl (3.5-5.0) 03/17/24 08:00
�
Diagnostic Results:�as per HPI�
�
Assessment
68-year-old M PMH (A-fib/atrial flutter, HTN, history of cardiomyopathy 2019 with EF of 25% required LifeVest x 1 month�resolved asthma, obstructive sleep apnea, right cell renal carcinoma with new recent mets, anemia/iron deficiency) with
03/16/2024 with severe thoracic back pain with thoracic spine degenerative disc protrusions most prominent T6/T7 with no obvious evidence for cord compression complicated by ileus from narcotic use���with ADL and ambulatory dysfunction.
�
Plan�
PM&R�PT/OT to increase independence with ADLs, improve balance, coordination, endurance, strength, mobility, community reintegration, decreased burden of care on others and family education.�
�
Debility: PT/OT
�
HTN: continue medications, monitor closely�
Atrial fibrillation:� Continue anticoagulation and rate control medications.�������������������������������������������
CHF: beta kailey, monitor fluid status�
DANIEL: CPAP use.�
Anemia: Likely multifactorial.� Continue to monitor.�
Pain: acetaminophen as needed.�
Ileus: Avoid narcotic medications on Mestinon, PRN bisacodyl.�
Bladder: No retention concerns
GI Prophylaxis: Pantoprazole�
DVT Prophylaxis: Mechanical and apixaban
Pulmonary: Incentive spirometry�
Obesity: Continue to after school counselor patient about diet adjustments to control obesity. Body habitus and increased force to move body and extremities causes further difficulty with functional tasks.�
Safety: Continue to reinforce assistance with all transfers.�
Code Status:� Full code
Dispo�(date/plan/equipment needs): Home with family care.� Social history reviewed.�
Functional and Medical Goals:�Modified Independent with ADL�s, ambulation, transfers�
Discharge Destination:�custodial facility
�
Thank you for allowing me to care for your patient. Please contact me with any questions or concerns.
[2024-03-26] MEDS: FLOMAX 0.4 MG PO (21:22)
[2024-03-26 23:00] VITALS: BP 125/71
[2024-03-27] MEDS: UNASYN IV ×4 (05:14→23:04)
[2024-03-27 06:00] VITALS: BMI 33.1
[2024-03-27 06:07] LABS: Hematocrit 32.5 % (39.0-52.0); Mean Corp Hgb Conc. 30.8 g/dL (33.0-37.0); Mean Corpuscular Hgb 26.2 pg (27.0-31.0); Mean Corpuscular Volume 85.1 fL (80.0-94.0); Mean Platelet Volume 10.1 fL (7.4-10.4); Platelet Count 443 10^3/uL (130-400); Red Blood Cell Count 3.82 10^6/uL (4.70-6.10); Red Cell Dist. Width 17.4 % (11.5-14.5)
[2024-03-27 06:27] LABS: Blood Urea Nitrogen 16 mg/dl (9-20); Calcium 9.3 mg/dl (8.4-10.2); Carbon Dioxide 23 mmol/L (22-30); Chloride 98 mmol/L (98-107); Estimated Creatinine Clearance 80 ml/min; Glucose 95 mg/dl (70-99); Magnesium 1.9 mg/dl (1.6-2.3); Potassium 3.6 mmol/L (3.5-5.1); Sodium 137 mmol/L (135-145); eGFR > 60.00
[2024-03-27 07:30] VITALS: BP 100/60
[2024-03-27] MEDS: NON-FORMULARY ITEM 1 UNIT INH (07:56)
--- NOTE | 2024-03-27 08:43 | W.PN.HOSP.TC ---
Today's Communication/Plan
-
see A/P
Assessment / Plan
Assessment / Plan
PET scan
1. Large focus of moderately intense FDG avid uptake in the right kidney corresponding with the patient's known primary malignancy.
2. FDG uptake involving numerous bilateral pulmonary nodules, subcarinal mediastinum, right hilum, right adrenal gland and left adrenal gland, as noted below, suspicious for FDG avid malignancy.
3. Several osseous foci of FDG uptake suspicious for malignancy, as detailed below. Of note, one lesion is seen most likely with epicenter involving a lucent lesion in the left mandible, difficult to determine anatomically
with this imaging modality. Suggest CT Facial Bone for more complete evaluation.
Lesion also suspected along the left side of the cervical spine possibly involving the left side of the C3 vertebral level for which MRI is suggested for more complete evaluation.
4. Small focus of minimal/mild FDG uptake involving an approximate 0.9 cm superficial midline soft tissue nodule along the posterior abdominal wall.
This may represent inflammatory activity are associated with soft tissue lesion such as a sebaceous cyst. A metastatic/malignant focus is also possible.
5. Prominent conglomerate moderately intense soft tissue FDG uptake seen within soft tissue density anterior to the left scapula which at least must be deemed suspicious for malignancy.
C-MRI: There are bilateral pulmonary nodules within the visualized upper lungs, compatible with pulmonary metastatic disease. There is a focal enhancing metastatic lesion within the left superior aspect of the C3 vertebral body. This extends into
the adjacent paraspinal soft tissues left anterolaterally. Compression of the medial margin of the left vertebral artery with no evidence for encasing or luminal narrowing. There is a enhancing metastatic lesion within the right posterior paraspinal
musculature at the C3 level. Changes of degenerative disc disease. At C3-4, there is cord compression and mild central canal stenosis. No convincing MR evidence for myelopathic signal. See above narrative for detailed findings at each level, with
multilevel foraminal narrowing.
T-MRI: No MR evidence of osseous metastatic disease. No intrinsic thoracic cord signal alteration or abnormal enhancement. Multilevel disc protrusions are present, as described. Most pronounced at T6-7, with secondary advanced thoracic cord
compression. No associated abnormal cord signal alteration. Moderate disc protrusion at T7-8 with moderate cord compression. Please refer to above discussion for specific and additional details.
A/P:
# upper thoracic back pain, acute
# ambulatory dysfunction
s/p MRI - studies summarized above
Neurosurgery consulted; no surgical intervention indicated
continue Tylenol (may need IV while with NGT), also Lidocaine patches
hold off opiates with active ileus
PT/OT evals: SNF recommended
# Ileus/Constipation
CT: Moderate distention of the distal esophagus and stomach. Moderate to severe distention of proximal small bowel loops. Collapsed ileal small bowel loops in the right lower quadrant. Severe distention of the cecum with fluid and mild distention of
the transverse colon. Mostly collapsed distal colon containing moderate diverticulosis. The pattern of bowel dilatation is most suggestive of a SEVERE ADYNAMIC ILEUS. A small bowel obstruction secondary to an adhesive band is considered less likely
given colonic distention and the absence of peritoneal fluid.
s/p NGT placement 03/20 for decompression
s/p Colonoscopy decompression 03/25 with improvement
NGT removed
Restarted diet, advanced to soft and bite size
Mestinon tapered by GI, currently 60 mg daily x2 days, then stop
avoid narcs/anticholinergics, encourage ambulation
IV Protonix BID
# Metastatic poorly differentiated RCC with osseous mets, lung field meds, L mandible meds
PET and CT reviewed with family
OP follow up Oncology for definitive treatment discussions. May also benefit from Rad Onc consultation.
# RERE in setting of ileus, resolved
s/p IVF
hold nephrotoxins
Cont bladder scans
SCr today at 1.1 from baseline 1.1
# Left jaw pain consistent with osseous mets seen on CT
s/p ER aspiration attempt with bloody drainage
# Chronic anemia
# Anemia of chronic disorder
Hb stable
# A. Fib/ A. Flutter
Resumed SITE LEADER Eliquis
SITE LEADER Metoprolol remain on hold. BP/HR stable off meds
IV Lopressor PRN
# Dental Molar small abscess
discussed with OMFS Dr Cassidy, [facility] outpt follow up
started empiric Unasyn during hospital stay with plan to DC on Augmentin oral solution (to facilitate swallowing)
# Essential HTN
BP stable off meds
resumed SITE LEADER Lasix 40 mg every 48 H
# Chronic peripheral edema
I/O, daily weights
Apply Tubigrip's
IV Lasix x1, resumed SITE LEADER Lasix 40 mg every 48 H
watch volume status
# History of cardiomyopathy 2019 with EF of 25% required LifeVest x 1 month� resolved
updated Echo 07/2023: normal EF
# Asthma-no acute exacerbation
continue Trelegy
# Obstructive sleep apnea
on CPAP
# Obesity due to excess calorie consumption
continue ensure supplements
DVT ppx: resumed SITE LEADER Eliquis
Code: DNR
Dispo planning: SNF per PMR eval
DW CM
Anticipated Discharge: 24 - 48 hours
Subjective/Interval History
-
Date of Service: March 27, 2024
Objective Data
-
Labs:
Laboratory Results
03/27/24
05:48
WBC 16.0 H
Hgb 10.0 L
Hct 32.5 L
Plt Count 443 H
Sodium 137
Potassium 3.6
Chloride 98
Carbon Dioxide 23
BUN 16
Creatinine 1.1
Glucose 95
Calcium 9.3
Vital Signs:
Vital Signs
Temp Pulse Resp BP Pulse Ox
36.4 C 89 16 100/60 95
03/27/24 07:30 03/27/24 07:57 03/27/24 07:57 03/27/24 07:30 03/27/24 07:57
I&O
03/26/24 03/27/24 03/28/24
06:59 06:59 06:59
Intake Total 960 / 960
Balance 960 / 960
Review of Systems
-
All other systems: Reviewed and negative
Physical Exam
-
General: Well Developed, Well Nourished, No Apparent Distress, Comfortable and Conversant
HEENT: Normocephalic
Respiratory: Clear to Auscultation and Non Labored Respirations; Negative Accessory Resp Muscle Use
Cardiac: Regular Rhythm and S1/S2
GI: Soft, Nontender and Nondistended
Musculoskeletal: Edema, Right Lower Extrem (chronic) and Edema, Left Lower Extrem (chronic)
Neuro: Awake and Alert
Psych: Calm and Intact Judgement/Insight
Data Reviewed
-
Diagnostic Radiology: Report Reviewed by me
Labs: Labs Reviewed by me
[2024-03-27] MEDS: ELIQUIS 5 MG PO ×2 (09:03→21:13)
[2024-03-27] MEDS: LIDOCAINE 4% PATCH TOPICAL ×2 (09:03→09:06)
[2024-03-27] MEDS: MESTINON 60 MG PO (09:03)
[2024-03-27] MEDS: PROTONIX IV 40 MG IV ×2 (09:12→21:13)
[2024-03-27] MEDS: NSS (PRESERVATIVE FREE) 10 ML IV ×2 (09:13→21:13)
--- NOTE | 2024-03-27 13:31 | CM ---
Patient seen bedside with , discussed PMR consult recommending SNF. requesting referrals to [facility]. Patient reports he would prefer to discharge to short term rehab prior to returning home. reports patient has a
consultation this Friday with Dr. Kennedy, does not want to miss that appointment. and patient report if patient is unable to attend appointment while at SNF, will return home with home therapy. Referrals sent to [facility]. CM will
continue to follow for all discharge planning needs.
Plan; SNF vs home with [facility]N, awaiting to hear from SNF regarding acceptance.
[2024-03-27 15:36] VITALS: BP 102/59
[2024-03-27] MEDS: FLOMAX 0.4 MG PO (21:12)
[2024-03-27 23:24] VITALS: BP 136/76
[2024-03-28] MEDS: UNASYN IV ×4 (05:23→23:08)
[2024-03-28 06:00] VITALS: BMI 33.8
[2024-03-28 06:43] LABS: Hematocrit 28.7 % (39.0-52.0); Hemoglobin 8.8 g/dL (13.0-18.0); Mean Corp Hgb Conc. 30.7 g/dL (33.0-37.0); Mean Corpuscular Hgb 25.1 pg (27.0-31.0); Mean Platelet Volume 9.7 fL (7.4-10.4); Platelet Count 394 10^3/uL (130-400); Red Cell Dist. Width 17.5 % (11.5-14.5); White Blood Cell Count 13.8 10^3/uL (4.8-10.8)
[2024-03-28 07:00] VITALS: BP 114/86
[2024-03-28 07:16] LABS: Blood Urea Nitrogen 15 mg/dl (9-20); Calcium 9.1 mg/dl (8.4-10.2); Carbon Dioxide 23 mmol/L (22-30); Chloride 99 mmol/L (98-107); Estimated Creatinine Clearance 89 ml/min; Glucose 94 mg/dl (70-99); Potassium 3.6 mmol/L (3.5-5.1); Sodium 135 mmol/L (135-145); eGFR > 60.00
[2024-03-28] MEDS: NON-FORMULARY ITEM 1 UNIT INH (08:17)
[2024-03-28] MEDS: LIDOCAINE 4% PATCH TOPICAL ×2 (08:28→08:42)
--- NOTE | 2024-03-28 08:28 | W.PN.HOSP.TC ---
Today's Communication/Plan
-
IV Lasix today
Tubigrip BL LE
replete K
Dispo planning to SNF
Assessment / Plan
Assessment / Plan
PET scan
1. Large focus of moderately intense FDG avid uptake in the right kidney corresponding with the patient's known primary malignancy.
2. FDG uptake involving numerous bilateral pulmonary nodules, subcarinal mediastinum, right hilum, right adrenal gland and left adrenal gland, as noted below, suspicious for FDG avid malignancy.
3. Several osseous foci of FDG uptake suspicious for malignancy, as detailed below. Of note, one lesion is seen most likely with epicenter involving a lucent lesion in the left mandible, difficult to determine anatomically
with this imaging modality. Suggest CT Facial Bone for more complete evaluation.
Lesion also suspected along the left side of the cervical spine possibly involving the left side of the C3 vertebral level for which MRI is suggested for more complete evaluation.
4. Small focus of minimal/mild FDG uptake involving an approximate 0.9 cm superficial midline soft tissue nodule along the posterior abdominal wall.
This may represent inflammatory activity are associated with soft tissue lesion such as a sebaceous cyst. A metastatic/malignant focus is also possible.
5. Prominent conglomerate moderately intense soft tissue FDG uptake seen within soft tissue density anterior to the left scapula which at least must be deemed suspicious for malignancy.
C-MRI: There are bilateral pulmonary nodules within the visualized upper lungs, compatible with pulmonary metastatic disease. There is a focal enhancing metastatic lesion within the left superior aspect of the C3 vertebral body. This extends into
the adjacent paraspinal soft tissues left anterolaterally. Compression of the medial margin of the left vertebral artery with no evidence for encasing or luminal narrowing. There is a enhancing metastatic lesion within the right posterior paraspinal
musculature at the C3 level. Changes of degenerative disc disease. At C3-4, there is cord compression and mild central canal stenosis. No convincing MR evidence for myelopathic signal. See above narrative for detailed findings at each level, with
multilevel foraminal narrowing.
T-MRI: No MR evidence of osseous metastatic disease. No intrinsic thoracic cord signal alteration or abnormal enhancement. Multilevel disc protrusions are present, as described. Most pronounced at T6-7, with secondary advanced thoracic cord
compression. No associated abnormal cord signal alteration. Moderate disc protrusion at T7-8 with moderate cord compression. Please refer to above discussion for specific and additional details.
A/P:
# upper thoracic back pain, acute
# ambulatory dysfunction
s/p MRI - studies summarized above
Neurosurgery consulted; no surgical intervention indicated
continue Tylenol (may need IV while with NGT), also Lidocaine patches
hold off opiates with active ileus
PT/OT evals: SNF recommended
# Ileus/Constipation
CT: Moderate distention of the distal esophagus and stomach. Moderate to severe distention of proximal small bowel loops. Collapsed ileal small bowel loops in the right lower quadrant. Severe distention of the cecum with fluid and mild distention of
the transverse colon. Mostly collapsed distal colon containing moderate diverticulosis. The pattern of bowel dilatation is most suggestive of a SEVERE ADYNAMIC ILEUS. A small bowel obstruction secondary to an adhesive band is considered less likely
given colonic distention and the absence of peritoneal fluid.
s/p NGT placement 03/20 for decompression
s/p Colonoscopy decompression 03/25 with improvement
NGT removed
Restarted diet, advanced to soft and bite size
Mestinon tapered by GI, currently 60 mg daily x2 days, then stop
avoid narcs/anticholinergics, encourage ambulation
IV Protonix BID
# Metastatic poorly differentiated RCC with osseous mets, lung field meds, L mandible meds
PET and CT reviewed with family
OP follow up Oncology for definitive treatment discussions. May also benefit from Rad Onc consultation.
# RERE in setting of ileus, resolved
s/p IVF
hold nephrotoxins
Cont bladder scans
SCr today at 1.0 from baseline 1.1
# Left jaw pain consistent with osseous mets seen on CT
s/p ER aspiration attempt with bloody drainage
# Chronic anemia
# Anemia of chronic disorder
Hb stable
# A. Fib/ A. Flutter
Resumed PATIENT CARE DIRECTOR Eliquis
PATIENT CARE DIRECTOR Metoprolol remain on hold. BP/HR stable off meds
IV Lopressor PRN
# Dental Molar small abscess
discussed with OMFS Dr Cass[facility]
started empiric Unasyn during hospital stay with plan to DC on Augmentin oral solution (to facilitate swallowing)
# Essential HTN
BP stable off meds
resumed PATIENT CARE DIRECTOR Lasix 40 mg every 48 H
# Chronic pedal edema
I/O, daily weights, watch volume status
IV lasix x2 doses, resumed PATIENT CARE DIRECTOR Lasix 40 mg every 48 H
resume PATIENT CARE DIRECTOR Tubigrip's
# History of cardiomyopathy 2019 with EF of 25% required LifeVest x 1 month� resolved
updated Echo 07/2023: normal EF
# Asthma-no acute exacerbation
continue Trelegy
# Obstructive sleep apnea
on CPAP
# Obesity due to excess calorie consumption
continue ensure supplements
DVT ppx: resumed PATIENT CARE DIRECTOR Eliquis
Code: DNR
Dispo planning: SNF per PMR eval
DW RN
Anticipated Discharge: 24 - 48 hours
Subjective/Interval History
-
Date of Service: March 28, 2024
Objective Data
-
Labs:
Laboratory Results
03/28/24
06:15
WBC 13.8 H
Hgb 8.8 L
Hct 28.7 L
Plt Count 394
Sodium 135
Potassium 3.6
Chloride 99
Carbon Dioxide 23
BUN 15
Creatinine 1.0
Glucose 94
Calcium 9.1
Vital Signs:
Vital Signs
Temp Pulse Resp BP Pulse Ox
36.2 C 105 16 136/76 95
03/27/24 23:24 03/28/24 08:18 03/28/24 08:18 03/27/24 23:24 03/28/24 08:18
I&O
03/27/24 03/28/24 03/29/24
06:59 06:59 06:59
Intake Total 960 / 960 760 / 760 480 / 480
Balance 960 / 960 760 / 760 480 / 480
Review of Systems
-
All other systems: Reviewed and negative
Physical Exam
-
General: Well Developed, Well Nourished, No Apparent Distress, Comfortable and Conversant
HEENT: Normocephalic
Respiratory: Clear to Auscultation and Non Labored Respirations; Negative Accessory Resp Muscle Use
Cardiac: Regular Rhythm and S1/S2
GI: Soft, Nontender and Nondistended
Musculoskeletal: Edema, Right Lower Extrem (chronic) and Edema, Left Lower Extrem (chronic)
Neuro: Awake and Alert
Psych: Calm and Intact Judgement/Insight
Data Reviewed
-
Diagnostic Radiology: Report Reviewed by me
Labs: Labs Reviewed by me
[2024-03-28] MEDS: NSS (PRESERVATIVE FREE) 10 ML IV ×2 (08:29→20:47)
[2024-03-28] MEDS: PROTONIX IV 40 MG IV ×2 (08:29→20:47)
[2024-03-28] MEDS: LASIX PO ×2 (08:30→08:32)
[2024-03-28] MEDS: MESTINON 60 MG PO (08:30)
[2024-03-28] MEDS: ELIQUIS 5 MG PO ×2 (08:30→20:47)
[2024-03-28] MEDS: LASIX 40 MG IV (08:40)
[2024-03-28] MEDS: KCL 40 MEQ PO (08:40)
--- NOTE | 2024-03-28 16:18 | CM ---
Addendum entered by Rosio Kimball 03/28/24 16:19:
CM will continue to follow for all discharge planning needs.
Plan; SNF vs home with [facility]
Original Note:
Patient and seen bedside, requesting additional referral be sent to [facility]. CM will send referral in [facility]. If
[2024-03-28 16:48] VITALS: BP 106/68
[2024-03-28] MEDS: FLOMAX 0.4 MG PO (20:47)
[2024-03-28 22:40] VITALS: BP 109/65
[2024-03-29] MEDS: UNASYN IV ×2 (05:44→12:57)
[2024-03-29 06:00] VITALS: BMI 33.4
[2024-03-29 07:30] VITALS: BP 109/73
[2024-03-29] MEDS: NON-FORMULARY ITEM 1 UNIT INH (08:07)
[2024-03-29 08:12] LABS: Hematocrit 29.3 % (39.0-52.0); Hemoglobin 9.1 g/dL (13.0-18.0); Mean Corp Hgb Conc. 31.1 g/dL (33.0-37.0); Mean Corpuscular Volume 83.7 fL (80.0-94.0); Mean Platelet Volume 10.7 fL (7.4-10.4); Platelet Count 380 10^3/uL (130-400); Red Cell Dist. Width 17.7 % (11.5-14.5); White Blood Cell Count 13.5 10^3/uL (4.8-10.8)
[2024-03-29 08:37] LABS: Blood Urea Nitrogen 17 mg/dl (9-20); Calcium 9.2 mg/dl (8.4-10.2); Carbon Dioxide 21 mmol/L (22-30); Chloride 98 mmol/L (98-107); Estimated Creatinine Clearance 89 ml/min; Glucose 98 mg/dl (70-99); Magnesium 1.7 mg/dl (1.6-2.3); Sodium 136 mmol/L (135-145); eGFR > 60.00
[2024-03-29] MEDS: NSS (PRESERVATIVE FREE) 10 ML IV (08:52)
[2024-03-29] MEDS: PROTONIX IV 40 MG IV (08:52)
[2024-03-29] MEDS: LIDOCAINE 4% PATCH TOPICAL (08:53)
[2024-03-29] MEDS: ELIQUIS 5 MG PO (08:53)
--- NOTE | 2024-03-29 09:12 | W.PN.HOSP.TC ---
Today's Communication/Plan
-
dc to SNF
Assessment / Plan
Assessment / Plan
PET scan
1. Large focus of moderately intense FDG avid uptake in the right kidney corresponding with the patient's known primary malignancy.
2. FDG uptake involving numerous bilateral pulmonary nodules, subcarinal mediastinum, right hilum, right adrenal gland and left adrenal gland, as noted below, suspicious for FDG avid malignancy.
3. Several osseous foci of FDG uptake suspicious for malignancy, as detailed below. Of note, one lesion is seen most likely with epicenter involving a lucent lesion in the left mandible, difficult to determine anatomically
with this imaging modality. Suggest CT Facial Bone for more complete evaluation.
Lesion also suspected along the left side of the cervical spine possibly involving the left side of the C3 vertebral level for which MRI is suggested for more complete evaluation.
4. Small focus of minimal/mild FDG uptake involving an approximate 0.9 cm superficial midline soft tissue nodule along the posterior abdominal wall.
This may represent inflammatory activity are associated with soft tissue lesion such as a sebaceous cyst. A metastatic/malignant focus is also possible.
5. Prominent conglomerate moderately intense soft tissue FDG uptake seen within soft tissue density anterior to the left scapula which at least must be deemed suspicious for malignancy.
C-MRI: There are bilateral pulmonary nodules within the visualized upper lungs, compatible with pulmonary metastatic disease. There is a focal enhancing metastatic lesion within the left superior aspect of the C3 vertebral body. This extends into
the adjacent paraspinal soft tissues left anterolaterally. Compression of the medial margin of the left vertebral artery with no evidence for encasing or luminal narrowing. There is a enhancing metastatic lesion within the right posterior paraspinal
musculature at the C3 level. Changes of degenerative disc disease. At C3-4, there is cord compression and mild central canal stenosis. No convincing MR evidence for myelopathic signal. See above narrative for detailed findings at each level, with
multilevel foraminal narrowing.
T-MRI: No MR evidence of osseous metastatic disease. No intrinsic thoracic cord signal alteration or abnormal enhancement. Multilevel disc protrusions are present, as described. Most pronounced at T6-7, with secondary advanced thoracic cord
compression. No associated abnormal cord signal alteration. Moderate disc protrusion at T7-8 with moderate cord compression. Please refer to above discussion for specific and additional details.
Assessment:
# upper thoracic back pain, acute
# ambulatory dysfunction
s/p MRI - studies summarized above
Neurosurgery consulted; no surgical intervention indicated
continue Tylenol (may need IV while with NGT), also Lidocaine patches
hold off opiates with active ileus
PT/OT evals: SNF planned
# Ileus/Constipation
CT: Moderate distention of the distal esophagus and stomach. Moderate to severe distention of proximal small bowel loops. Collapsed ileal small bowel loops in the right lower quadrant. Severe distention of the cecum with fluid and mild distention of
the transverse colon. Mostly collapsed distal colon containing moderate diverticulosis. The pattern of bowel dilatation is most suggestive of a SEVERE ADYNAMIC ILEUS. A small bowel obstruction secondary to an adhesive band is considered less likely
given colonic distention and the absence of peritoneal fluid.
s/p NGT placement 03/20 for decompression
s/p Colonoscopy decompression 03/25 with improvement
NGT removed
Restarted diet, advanced to soft and bite size
Mestinon tapered by GI to off
avoid narcs/anticholinergics, encourage ambulation
continue Protonix daily
# Metastatic poorly differentiated RCC with osseous mets, lung field meds, L mandible meds
PET and CT reviewed with family
OP follow up Oncology for definitive treatment discussions. May also benefit from Rad Onc consultation.
# RERE in setting of ileus, resolved
s/p IVF
hold nephrotoxins
Cont bladder scans
SCr today at 1.0 from baseline 1.1
# Left jaw pain consistent with osseous mets seen on CT
s/p ER aspiration attempt with bloody drainage
# Chronic anemia
# Anemia of chronic disorder
Hb stable
# A. Fib/ A. Flutter
Resumed INFORMATION TECH[employer]OLOGY AUDITOR Eliquis and INFORMATION TECH[employer]OLOGY AUDITOR Toprol XL at reduced dose 12.5mg daily
# Dental Molar small abscess
Dr. Kaye discussed with OMFS Dr Cassidy, [facility] outpt follow up
started empiric Unasyn during hospital stay with plan to DC on Augmentin oral solution (to facilitate swallowing), total 10 days (day 4/ today)
# Essential HTN
BP stable off meds
resumed INFORMATION TECHNOLOGY AUDITOR Lasix 40 mg every 48 H
# Chronic pedal edema
I/O, daily weights, watch volume status
IV lasix x2 doses, resumed INFORMATION TECHNOLOGY AUDITOR Lasix 40 mg every 48 H
resume INFORMATION TECHNOLOGY AUDITOR Tubigrip's
# History of cardiomyopathy 2019 with EF of 25% required LifeVest x 1 month� resolved
updated Echo 07/2023: normal EF
# Asthma-no acute exacerbation
continue Trelegy
# Obstructive sleep apnea
on CPAP
# Obesity due to excess calorie consumption
continue ensure supplements
DVT ppx: resumed INFORMATION TECHNOLOGY AUDITOR Eliquis
Code: DNR
More than 30 minutes spent in discharge including
Final examination of the patient
Summarizing hospital stay
Instructions for continuing care to all relevant caregivers
Preparation of discharge records, prescriptions, and referral forms
Total time spent (in minutes):43
Anticipated Discharge: Today
Subjective/Interval History
-
Date of Service: March 29, 2024
pain controlled, tolerating diet
no new complaints
for SNF dc today
Objective Data
-
Labs:
Laboratory Results
03/29/24
06:29
WBC 13.5 H
Hgb 9.1 L
Hct 29.3 L
Plt Count 380
Sodium 136
Potassium 4.0
Chloride 98
Carbon Dioxide 21 L
BUN 17
Creatinine 1.0
Glucose 98
Calcium 9.2
Vital Signs:
Vital Signs
Temp Pulse Resp BP Pulse Ox
97.7 F 99 18 109/73 96
03/29/24 07:30 03/29/24 07:30 03/29/24 07:30 03/29/24 07:30 03/29/24 08:08
I&O
03/28/24 03/29/24 03/30/24
06:59 06:59 06:59
Intake Total 760 / 760 1740 / 1740 480 / 480
Output Total 375 / 375 1425 / 1425
Balance 760 / 760 1365 / 1365 -945 / -945
Physical Exam
-
General: No Apparent Distress
HEENT: Normocephalic and Atraumatic
Respiratory: Negative Wheezes
Cardiac: Regular Rhythm and S1/S2
GI: Soft
Musculoskeletal: No Edema
Neuro: AO x 3
Hematologic / Lymphatic: No Lymphadenopathy
Psych: Calm
Data Reviewed
-
Total Time Spent with Patient (in minutes): 43
Labs: Labs Reviewed by me
[2024-03-29 11:30] VITALS: BP 127/71
--- NOTE | 2024-03-29 12:12 | CM ---
Patient seen bedside, discussed [facility] can accept patient for today, confirmed patient can attend consultation this Friday, family will need to transport. Patient confirms he has his own CPAP to bring to SNF. IMM reviewed, signed, placed in
chart. Patient will require WC Van transport, provided number to call for payment ($90). CM will continue to follow for all discharge planning needs.
Plan; WC Van transport 4:00 p.m. - [facility]
Report: [phone]
[2024-03-29 12:20] VITALS: BP 121/73; PULSE 119; O2SAT 96
[2024-03-29] MEDS: TOPROL XL 12.5 MG PO (12:56)
--- NOTE | 2024-03-29 13:16 | W.DS.TRANS ---
DC Summary - [facility] [facility]
-
Discharge Instructions:
Discharge Diagnosis/Procedures Upper thoracic back pain with ambulatory
dysfunction due to thoracic cord compression
from disc protrusions;
ileus status post NG tube placement and
colonoscopy decompression.
metastatic cancer
Diet As tolerated
Additional Diets Continue soft and bite-size diet and advance as
tolerated
Activity As tolerated
Driving Restrictions Not until seen by your Dr
Blood Work cbc and bmp in 1 week at [facility]
Other Services OT,PT
Instructions:
Stand-Alone Forms:
Changes to Home Medications: Yes
Discharge Medications:
DC Medications w/original date entered in [facility]
furosemide 40 mg tablet 40 mg PO Q48H Fluid Retention/Swelling 01/21/20
tamsulosin 0.4 mg capsule 0.4 mg PO HS Urinary Issue 02/16/24
acetaminophen 500 mg tablet (Tylenol Extra Strength) 1,000 mg PO Q6HPRN PRN mild pain 03/16/24
apixaban 5 mg tablet (Eliquis) 5 mg PO BID Blood Clot Prevention/Tx 03/16/24
fluticasone fur. 100 mcg-umeclid 62.5 mcg-vilant 25 mcg inhalat.powder (Trelegy Ellipta) 1 inh inhalation R DAILY Lung/Breathing Issues 03/16/24
potassium chloride 10 mEq tablet,extended release(part/cryst) 10 meq PO DAILY Electrolyte Repletion 03/16/24
amoxicillin 400 mg-potassium clavulanate 57 mg/5 mL oral suspension 10 ml PO BID #120 mL 03/29/24
calcium carbonate (Calcium Antacid) 2 tab PO Q4HPRN PRN heartburn #60 tabs 03/29/24
lidocaine 4 % topical patch 3 patch topical DAILY #90 ea 03/29/24
metoprolol succinate 25 mg tablet,extended release 24 hr 12.5 mg (1/2 x 25 mg) PO DAILY #30 tabs 03/29/24
pantoprazole 40 mg tablet,delayed release (Protonix) 40 mg PO DAILY #30 tabs 03/29/24
polyethylene glycol 3350 17 gram oral powder packet (HealthyLax) 17 g PO DAILY #30 ea 03/29/24
sennosides 8.6 mg-docusate sodium 50 mg tablet 1 tab PO BID #30 tabs 03/29/24
Home Medication Changes
toprol reduced
Entresto stopped
Pending Results: No
Total time spent discharging patient (in min): 42
[2024-03-29 13:30] VITALS: BP 121/73; PULSE 117; O2SAT 96
[2024-03-29 14:55] VITALS: BP 125/69
== END 2024-03-29 16:29 | DRG 551 ==
LOC: 4 WEST ACU 08:23
PROVIDERS: Clinical Nurse Specialist Family Health; Internal Medicine; ADMITTING PHYSICIAN Hospitalist; ATTENDING PHYSICIAN Internal Medicine; CONSULT PHYSICIAN Internal Medicine Hematology & Oncology; CONSULT PHYSICIAN Physical Medicine & Rehabilitation; EMERGENCY PHYSICIAN Emergency Medicine; FAMILY PHYSICIAN Family Medicine; OTHER PHYSICIAN Internal Medicine Gastroenterology; OTHER PHYSICIAN Neurological Surgery
PROC: 5A09357 Assistance with Respiratory Ventilation, Less than 24 Consecutive Hours, Continuous Positive Airway Pressure (ICD-10-PCS; 2024-03-17)
PROC: 0D7G8ZZ Dilation of Left Large Intestine, Via Natural or Artificial Opening Endoscopic (ICD-10-PCS; 2024-03-25)
DX: M51.24 Other intervertebral disc displacement, thoracic region (principal); R65.11 Systemic inflammatory response syndrome (SIRS) of non-infectious origin with acute organ dysfunction; C64.1 Malignant neoplasm of right kidney, except renal pelvis; I48.92 Unspecified atrial flutter; C79.51 Secondary malignant neoplasm of bone; C78.02 Secondary malignant neoplasm of left lung; C78.01 Secondary malignant neoplasm of right lung; N17.9 Acute kidney failure, unspecified; K56.7 Ileus, unspecified; Z66 Do not resuscitate; M51.34 Other intervertebral disc degeneration, thoracic region; I48.91 Unspecified atrial fibrillation; G47.33 Obstructive sleep apnea (adult) (pediatric); J45.909 Unspecified asthma, uncomplicated; D63.0 Anemia in neoplastic disease; E66.09 Other obesity due to excess calories; I10 Essential (primary) hypertension; M48.02 Spinal stenosis, cervical region; K59.03 Drug induced constipation; T40.2X5A Adverse effect of other opioids, initial encounter; K64.9 Unspecified hemorrhoids; K57.30 Diverticulosis of large intestine without perforation or abscess without bleeding; K04.7 Periapical abscess without sinus; R60.0 Localized edema; Z68.34 Body mass index [BMI] 34.0-34.9, adult; Z88.2 Allergy status to sulfonamides; Z79.01 Long term (current) use of anticoagulants; Z79.899 Other long term (current) drug therapy
CPT/HCPCS: 10060; 70487; 72156; 72157; 74022; 74177; 80048; 80053; 81003; 81015; 82607; 82728; 82746; 83540; 83550; 83735; 85018; 85025; 85027; 85730; 93005; 94640; 96374; 96375; 97116; 97163; 97167; 97530; 97535; 99285; A9575; Q9967

== ENCOUNTER → 2024-04-02 09:50 | Outpatient (REF) | payer OTHER, MEDICARE, SELFPAY ==
[2024-04-02 10:30] LABS: Hematocrit 25.6 % (39.0-52.0); Hemoglobin 7.9 g/dL (13.0-18.0); Mean Corp Hgb Conc. 30.9 g/dL (33.0-37.0); Mean Corpuscular Hgb 25.2 pg (27.0-31.0); Mean Corpuscular Volume 81.8 fL (80.0-94.0); Mean Platelet Volume 10.1 fL (7.4-10.4); Platelet Count 382 10^3/uL (130-400); Red Blood Cell Count 3.13 10^6/uL (4.70-6.10); Red Cell Dist. Width 18.3 % (11.5-14.5)
[2024-04-02 10:32] LABS: Blood Urea Nitrogen 11 mg/dl (9-20); Calcium 9.6 mg/dl (8.4-10.2); Carbon Dioxide 23 mmol/L (22-30); Chloride 99 mmol/L (98-107); Glucose 123 mg/dl (70-99); Potassium 4.1 mmol/L (3.5-5.1); Sodium 136 mmol/L (135-145); eGFR > 60.00
== END ==
LOC: OLABP 09:50
PROVIDERS: ATTENDING PHYSICIAN Family Medicine
DX: K56.7 Ileus, unspecified (principal); G95.20 Unspecified cord compression; K56.609 Unspecified intestinal obstruction, unspecified as to partial versus complete obstruction
CPT/HCPCS: 36415; 80048; 85027

== ENCOUNTER → 2024-04-05 10:44 | Outpatient (REF) | payer OTHER, MEDICARE, SELFPAY ==
[2024-04-05 11:24] LABS: % Basophils 0.4 % (0-2); % Eosinophils 2.5 % (0-6); % Immature Granulocytes 1.3 % (0-0.5); % Lymphocytes 11.3 % (20.5-51.1); % Monocytes 10.2 % (1.7-9.3); % Neutrophils 74.3 % (42.2-75.2); Absolute Basophils 0.1 10^3/uL (0-0.2); Absolute Eosinophils 0.3 10^3/uL (0-0.7); Absolute Immature Granulocytes 0.1 10^3/uL (0-0.05); Absolute Lymphocytes 1.3 10^3/uL (1.2-3.4); Absolute Monocytes 1.1 10^3/uL (0.1-0.6); Absolute Neutrophils 8.3 10^3/uL (1.4-6.5); Hematocrit 25.1 % (39.0-52.0); Hemoglobin 7.7 g/dL (13.0-18.0); Mean Corp Hgb Conc. 30.7 g/dL (33.0-37.0); Mean Corpuscular Hgb 26.1 pg (27.0-31.0); Mean Corpuscular Volume 85.1 fL (80.0-94.0); Mean Platelet Volume 10.4 fL (7.4-10.4); Nucleated Red Blood Cells % 0 % (-); Platelet Count 334 10^3/uL (130-400); Red Blood Cell Count 2.95 10^6/uL (4.70-6.10); Red Cell Dist. Width 17.9 % (11.5-14.5); White Blood Cell Count 11.1 10^3/uL (4.8-10.8)
[2024-04-05 11:32] LABS: Blood Urea Nitrogen 13 mg/dl (9-20); Calcium 10.1 mg/dl (8.4-10.2); Carbon Dioxide 30 mmol/L (22-30); Chloride 95 mmol/L (98-107); Glucose 116 mg/dl (70-99); Potassium 4.1 mmol/L (3.5-5.1); Sodium 134 mmol/L (135-145); eGFR > 60.00
== END ==
LOC: OLABP 10:44
PROVIDERS: ATTENDING PHYSICIAN Family Medicine
DX: K56.7 Ileus, unspecified (principal); G95.20 Unspecified cord compression; K56.609 Unspecified intestinal obstruction, unspecified as to partial versus complete obstruction
CPT/HCPCS: 36415; 80048; 85025

== ENCOUNTER → 2024-05-26 10:11 | Outpatient (REF) | payer MEDICARE, SELFPAY | LOC: HWRCS 10:11 | PROVIDERS: ATTENDING PHYSICIAN Internal Medicine Cardiovascular Disease; FAMILY PHYSICIAN Family Medicine | DX: C64.9 Malignant neoplasm of unspecified kidney, except renal pelvis (principal); R01.1 Cardiac murmur, unspecified | CPT/HCPCS: 93306 ==

== ENCOUNTER 2024-06-14 12:23 | Outpatient (RCR) | payer MEDICARE, SELFPAY | END 2024-07-01 07:42 | disposition home or self-care (01) | LOC: RPT 12:23 | PROVIDERS: ATTENDING PHYSICIAN Internal Medicine Hematology & Oncology; FAMILY PHYSICIAN Family Medicine | DX: R53.0 Neoplastic (malignant) related fatigue (principal); D63.8 Anemia in other chronic diseases classified elsewhere; R26.89 Other abnormalities of gait and mobility; Z73.6 Limitation of activities due to disability; M62.81 Muscle weakness (generalized); C80.1 Malignant (primary) neoplasm, unspecified | CPT/HCPCS: 97110; 97162 ==

== ENCOUNTER → 2025-02-02 11:22 | Outpatient (REF) | payer MEDICARE, SELFPAY ==
[2025-02-02 12:08] LABS: Hematocrit 30.8 % (39.0-52.0); Hemoglobin 9.4 g/dL (13.0-18.0); Mean Corp Hgb Conc. 30.5 g/dL (33.0-37.0); Mean Corpuscular Volume 79.4 fL (80.0-94.0); Nucleated Red Blood Cells % 0 % (-); Platelet Count 468 10^3/uL (130-400); Red Cell Dist. Width 17.5 % (11.5-14.5)
[2025-02-02 12:42] LABS: ALT (SGPT) 17 U/L (0-50); AST (SGOT) 20 U/L (17-59); Albumin 3.9 g/dl (3.5-5.0); Alkaline Phosphatase 77 U/L (38-126); Blood Urea Nitrogen 34 mg/dl (9-20); Calcium 8.8 mg/dl (8.4-10.2); Carbon Dioxide 24 mmol/L (22-30); Chloride 103 mmol/L (98-107); Glucose 52 mg/dl (70-99); Potassium 4.5 mmol/L (3.5-5.1); Sodium 136 mmol/L (135-145); Total Protein 7.4 g/dl (6.3-8.2); eGFR 45.78
== END ==
LOC: REG 11:22
PROVIDERS: ATTENDING PHYSICIAN Internal Medicine Hematology & Oncology; FAMILY PHYSICIAN Family Medicine
DX: D64.9 Anemia, unspecified (principal); C64.1 Malignant neoplasm of right kidney, except renal pelvis; C79.51 Secondary malignant neoplasm of bone
CPT/HCPCS: 36415; 80053; 84443; 85025

== ENCOUNTER → 2025-02-04 14:16 | Outpatient (REF) | payer MEDICARE, SELFPAY | LOC: RAD 14:16 | PROVIDERS: ATTENDING PHYSICIAN Internal Medicine Hematology & Oncology; FAMILY PHYSICIAN Family Medicine | DX: D64.9 Anemia, unspecified (principal); C64.1 Malignant neoplasm of right kidney, except renal pelvis; C79.51 Secondary malignant neoplasm of bone | CPT/HCPCS: 71260; 74177; Q9967 ==

== ENCOUNTER → 2025-04-08 12:50 | Outpatient (REF) | payer MEDICARE, SELFPAY ==
[2025-04-08 12:59] LABS: Glucose 84 mg/dl (70-99)
== END ==
LOC: PET 12:50
PROVIDERS: ATTENDING PHYSICIAN Internal Medicine Hematology & Oncology
DX: C64.1 Malignant neoplasm of right kidney, except renal pelvis (principal); D64.9 Anemia, unspecified; C79.51 Secondary malignant neoplasm of bone; D50.9 Iron deficiency anemia, unspecified; D63.1 Anemia in chronic kidney disease; N18.30 Chronic kidney disease, stage 3 unspecified
CPT/HCPCS: 36415; 82947